=== PATIENT | female | born 1960 | race Caucasian/White ===

== ENCOUNTER → 2017-11-21 | Outpatient (CLI) | payer BC ==
[2017-11-21 10:13] LABS: ALT 28 U/L (9-52); AST 29 U/L (14-36); Albumin 3.7 g/dL (3.5-5.0); Alkaline Phosphatase 125 U/L (38-126); Anion Gap 10 mmol/L; Blood Urea Nitrogen 16 mg/dL (7-17); Calcium 9.4 mg/dL (8.4-10.2); Carbon Dioxide 26 mmol/L (22-30); Chloride 107 mmol/L (98-107); Cholesterol 112 mg/dL (<200); Glucose 167 mg/dL (74-99); HDL Cholesterol 31 mg/dL (40-60); LDL Cholesterol,Calculated 57 mg/dL (0-99); Potassium 4.4 mmol/L (3.5-5.1); Sodium 143 mmol/L (137-145); Total Protein 7.3 g/dL (6.3-8.2); Triglycerides 121 mg/dL (<150)
[2017-11-21 10:25] LABS: T4, Free (Free Thyroxine) 1.63 ng/dL (0.78-2.19)
[2017-11-21 19:03] LABS: Hemoglobin A1C 9.2 % (4.0-6.0)
== END | disposition home or self-care (01) ==
LOC: LABWHC1 09:12
PROVIDERS: ATTEND Family Medicine
DX: E11.9 Type 2 diabetes mellitus without complications (principal); E03.9 Hypothyroidism, unspecified; E78.00 Pure hypercholesterolemia, unspecified
CPT/HCPCS: 36415; 80053; 80061; 82043; 82570; 83036; 83721; 84439; 84443

== ENCOUNTER → 2018-04-03 | Outpatient (CLI) | payer MEDICAID ==
[2018-04-03 09:03] LABS: Basophils % (A) 1 %; Eosinophils # (A) 0.1 k/uL (0-0.7); Eosinophils % (A) 2 %; HCT 45.5 % (34.0-46.0); Lymphocytes # (A) 1.6 k/uL (1.0-4.8); Lymphocytes % (A) 28 %; MCH 29.2 pg (25.0-35.0); MCHC 32.9 g/dL (31.0-37.0); MCV 88.7 fL (80.0-100.0); Mean Platelet Volume 9.6; Monocytes # (A) 0.4 k/uL (0-1.0); Monocytes % (A) 7 %; Neutrophils # (A) 3.4 k/uL (1.3-7.7); Neutrophils % (A) 60 %; Platelet Count 105 k/uL (150-450); RBC 5.13 m/uL (3.80-5.40); RDW 12.8 % (11.5-15.5); WBC 5.6 k/uL (3.8-10.6)
[2018-04-03 09:09] LABS: Appearance,Urine Clear (Clear); Bacteria,Urine Rare /hpf; Bilirubin,Urine Negative (Negative); Blood,Urine Negative (Negative); Color,Urine Yellow; Glucose,Urine (UA) 4+ (Negative); Ketones,Urine Negative (Negative); Leukocyte Esterase,Urine Moderate (Negative); Mucus,Urine Rare /hpf; Nitrite,Urine Negative (Negative); Protein,Urine Negative (Negative); RBC,Urine 3 /hpf (0-5); Specific Gravity,Urine 1.026 (1.001-1.035); Squamous Epithelial Cell,Urine 2 /hpf (0-4); Urobilinogen,Urine <2.0 mg/dL (<2.0)
[2018-04-03 09:22] LABS: ALT 30 U/L (9-52); AST 33 U/L (14-36); Alkaline Phosphatase 118 U/L (38-126); Anion Gap 9 mmol/L; Blood Urea Nitrogen 18 mg/dL (7-17); Calcium 9.3 mg/dL (8.4-10.2); Carbon Dioxide 24 mmol/L (22-30); Chloride 111 mmol/L (98-107); Cholesterol 97 mg/dL (<200); Glucose 83 mg/dL (74-99); HDL Cholesterol 32 mg/dL (40-60); LDL Cholesterol,Calculated 48 mg/dL (0-99); Magnesium 1.8 mg/dL (1.6-2.3); Potassium 4.4 mmol/L (3.5-5.1); Sodium 144 mmol/L (137-145); Total Bilirubin 0.9 mg/dL (0.2-1.3); Total Protein 7.4 g/dL (6.3-8.2); Triglycerides 86 mg/dL (<150)
[2018-04-03 09:38] LABS: T4, Free (Free Thyroxine) 1.77 ng/dL (0.78-2.19)
[2018-04-03 17:57] LABS: Vitamin D 25 Hydroxy 27.5 ng/mL (30.0-100.0)
[2018-04-03 21:22] LABS: Hepatitis A Ab, Total Non-Reactive (Non-Reactive); Hepatitis A Antibody IgM Non-Reactive (Non-Reactive); Hepatitis B Surface AB- Quant 3.5 mIU/mL
== END | disposition home or self-care (01) ==
LOC: LABWHC1 08:41
PROVIDERS: ATTEND Family Medicine
DX: Z00.00 Encounter for general adult medical examination without abnormal findings (principal); G93.9 Disorder of brain, unspecified; B37.2 Candidiasis of skin and nail; K74.60 Unspecified cirrhosis of liver; I10 Essential (primary) hypertension; E03.9 Hypothyroidism, unspecified; M85.80 Other specified disorders of bone density and structure, unspecified site; L40.9 Psoriasis, unspecified
CPT/HCPCS: 36415; 80053; 80061; 81001; 82043; 82306; 82570; 82607; 83036; 83735; 84439; 84443; 85025; 86706; 86708; 86709; 86735; 86762; 86765; 87086

== ENCOUNTER → 2018-06-05 | Outpatient (CLI) | payer MEDICAID ==
[2018-06-05 12:42] LABS: T4, Free (Free Thyroxine) 1.57 ng/dL (0.78-2.19)
[2018-06-08 08:02] LABS: Vitamin A 25 ug/dL (38-106); Vitamin E (Alpha Tocopherol) 586 ug/dL (500-1800)
== END | disposition home or self-care (01) ==
LOC: LABWHC1 10:12
PROVIDERS: ATTEND Physician Assistant
DX: E03.9 Hypothyroidism, unspecified (principal); E78.5 Hyperlipidemia, unspecified; I10 Essential (primary) hypertension; K74.3 Primary biliary cirrhosis; E66.9 Obesity, unspecified; L40.0 Psoriasis vulgaris; Z79.899 Other long term (current) drug therapy
CPT/HCPCS: 36415; 84439; 84443; 84446; 84590; 86480

== ENCOUNTER → 2019-05-21 | Outpatient (CLI) | payer MEDICAID | END | disposition home or self-care (01) | LOC: LABWHC1 09:50 | PROVIDERS: ATTEND Student in an Organized Health Care Education/Training Program | DX: E50.9 Vitamin A deficiency, unspecified (principal) | CPT/HCPCS: 36415; 84590 ==

== ENCOUNTER 2021-04-08 16:38 | Inpatient (IN) | payer MEDICAID, OTHER ==
[2021-04-08] MEDS ORDERED: SODIUM CHLORIDE 0.9% 500 ML 500 ML IV STA (18:11)
--- NOTE | 2021-04-08 18:17 | ED ---
General Adult HPI - General Chief complaint: Altered Mental Status Stated complaint: abn labs Time Seen by Provider: 04/08/21 17:45 Source: patient, RN notes reviewed, old records reviewed Mode of arrival: ambulatory Limitations: no limitations - History of Present Illness Initial comments: This is a 60-year-old female presents emergency Department with a past medical history significant for diabetes and cirrhosis. Patient states she recently had some esophageal banding done and was also told she has a couple ulcers. Patient states over the last 4 days she has noted she has been off and can't remember her log onto her computer she gets fpc across the room and can't read why she was going there and she also notes she is very unsteady on her feet. Patient denies any headache patient denies any numbness or focal weakness. Patient denies any chest pain difficult breathing shortness of breath per patient denies any fever chills or cough. Patient denies abdominal pain patient has nausea vomiting diarrhea. Patient states the difficulty walking in the altered mental status other reason she is here today. Patient denies any history of drinking - Related Data Allergies Allergy/AdvReac Type Severity Reaction Status Date / Time No Known Allergies Allergy Verified 04/08/21 17:50 Review of Systems ROS Statement: Those systems with pertinent positive or pertinent negative responses have been documented in the HPI. ROS Other: All systems not noted in ROS Statement are negative. Past Medical History Past Medical History: Diabetes Mellitus, Hypertension Additional Past Medical History / Comment(s): brain lesions, genetic cirrhosis of the liver, DM II, History of Any Multi-Drug Resistant Organisms: None Reported Additional Past Surgical History / Comment(s): liver banding, right wrist, Past Psychological History: No Psychological Hx Reported Smoking Status: Never smoker Past Alcohol Use History: None Reported Past Drug Use History: None Reported General Exam - General Exam Comments Initial Comments: GENERAL: Patient is well-developed and well-nourished. Patient is nontoxic and well- hydrated and is in mild distress. ENT: Neck is soft and supple. No significant lymphadenopathy is noted. Oropharynx is clear. Moist mucous membranes. Neck has full range of motion without eliciting any pain. EYES: The sclera were anicteric and conjunctiva were pink and moist. Extraocular movements were intact and pupils were equal round and reactive to light. Eyelids were unremarkable. PULMONARY: Unlabored respirations. Good breath sounds bilaterally. No audible rales rhonchi or wheezing was noted. CARDIOVASCULAR: There is a regular rate and rhythm without any murmurs gallops or rubs. ABDOMEN: Soft and nontender with normal bowel sounds. SKIN: Skin is clear with no lesions or rashes and otherwise unremarkable. NEUROLOGIC: Patient is alert and oriented x3. Cranial nerves II through XII are grossly intact. Motor and sensory are also intact. Normal speech, volume and content. Symmetrical smile. MUSCULOSKELETAL: Normal extremities with adequate strength and full range of motion. LYMPHATICS: No significant lymphadenopathy is noted PSYCHIATRIC: Normal psychiatric evaluation. Limitations: no limitations Course Vital Signs 04/08/21 04/08/21 17:45 19:38 Temperature 98.4 F 98.1 F Pulse Rate 76 71 Respiratory 18 16 Rate Blood Pressure 119/67 116/66 O2 Sat by Pulse 100 100 Oximetry Medical Decision Making - Medical Decision Making Patient's ammonia level was elevated at 50. I started the patient like chills. I spoke with the [facility] hospitalist agreed to admit the patient admitted the patient I continued lactulose on the floor and I consult to GI. - Lab Data Result diagrams: 04/08/21 18:19 04/08/21 18:19 Lab Results 04/08/21 04/08/21 04/08/21 Range/Units 18:19 18:19 18:19 WBC 4.4 (3.8-10.6) k/uL RBC 4.80 (3.80-5.40) m/uL Hgb 15.5 (11.4-16.0) gm/dL Hct 46.1 H (34.0-46.0) % MCV 96.1 (80.0-100.0) fL MCH 32.2 (25.0-35.0) pg MCHC 33.5 (31.0-37.0) g/dL RDW 15.5 (11.5-15.5) % Plt Count 102 L (150-450) k/uL MPV 9.9 Neutrophils % 65 % Lymphocytes % 19 % Monocytes % 10 % Eosinophils % 2 % Basophils % 1 % Neutrophils # 2.8 (1.3-7.7) k/uL Lymphocytes # 0.8 L (1.0-4.8) k/uL Monocytes # 0.4 (0-1.0) k/uL Eosinophils # 0.1 (0-0.7) k/uL Basophils # 0.0 (0-0.2) k/uL Sodium 139 (137-145) mmol/L Potassium 4.3 (3.5-5.1) mmol/L Chloride 109 H (98-107) mmol/L Carbon Dioxide 22 (22-30) mmol/L Anion Gap 8 mmol/L BUN 24 H (7-17) mg/dL Creatinine 0.89 (0.52-1.04) mg/dL Est GFR (CKD-EPI)AfAm 82 (>60 ml/min/1.73 sqM) Est GFR (CKD-EPI)NonAf 71 (>60 ml/min/1.73 sqM) Glucose 127 H (74-99) mg/dL Plasma Lactic Acid Babak (0.7-2.0) mmol/L Calcium 9.4 (8.4-10.2) mg/dL Total Bilirubin 2.4 H (0.2-1.3) mg/dL AST 90 H (14-36) U/L ALT 49 H (4-34) U/L Alkaline Phosphatase 165 H (38-126) U/L Ammonia (<30) umol/L Total Protein 7.2 (6.3-8.2) g/dL Albumin 3.5 (3.5-5.0) g/dL Amylase 58 (30-110) U/L Lipase 297 (23-300) U/L Urine Color Yellow Urine Appearance Cloudy H (Clear) Urine pH 5.5 (5.0-8.0) Ur Specific [place] 1.028 (1.001-1.035) Urine Protein Trace H (Negative) Urine Glucose (UA) 2+ H (Negative) Urine Ketones Negative (Negative) Urine Blood Large H (Negative) Urine Nitrite Negative (Negative) Urine Bilirubin Negative (Negative) Urine Urobilinogen 2.0 (<2.0) mg/dL Ur Leukocyte Esterase Moderate H (Negative) Urine RBC 39 H (0-5) /hpf Urine WBC 13 H (0-5) /hpf Ur Squamous Epith Cells 6 H (0-4) /hpf Urine Mucus Occasional H (None) /hpf 04/08/21 Range/Units 18:19 WBC (3.8-10.6) k/uL RBC (3.80-5.40) m/uL Hgb (11.4-16.0) gm/dL Hct (34.0-46.0) % MCV (80.0-100.0) fL MCH (25.0-35.0) pg MCHC (31.0-37.0) g/dL RDW (11.5-15.5) % Plt Count (150-450) k/uL MPV Neutrophils % % Lymphocytes % % Monocytes % % Eosinophils % % Basophils % % Neutrophils # (1.3-7.7) k/uL Lymphocytes # (1.0-4.8) k/uL Monocytes # (0-1.0) k/uL Eosinophils # (0-0.7) k/uL Basophils # (0-0.2) k/uL Sodium (137-145) mmol/L Potassium (3.5-5.1) mmol/L Chloride (98-107) mmol/L Carbon Dioxide (22-30) mmol/L Anion Gap mmol/L BUN (7-17) mg/dL Creatinine (0.52-1.04) mg/dL Est GFR (CKD-EPI)AfAm (>60 ml/min/1.73 sqM) Est GFR (CKD-EPI)NonAf (>60 ml/min/1.73 sqM) Glucose (74-99) mg/dL Plasma Lactic Acid Babak 1.0 (0.7-2.0) mmol/L Calcium (8.4-10.2) mg/dL Total Bilirubin (0.2-1.3) mg/dL AST (14-36) U/L ALT (4-34) U/L Alkaline Phosphatase (38-126) U/L Ammonia 50 H (<30) umol/L Total Protein (6.3-8.2) g/dL Albumin (3.5-5.0) g/dL Amylase (30-110) U/L Lipase (23-300) U/L Urine Color Urine Appearance (Clear) Urine pH (5.0-8.0) Ur Specific [place] (1.001-1.035) Urine Protein (Negative) Urine Glucose (UA) (Negative) Urine Ketones (Negative) Urine Blood (Negative) Urine Nitrite (Negative) Urine Bilirubin (Negative) Urine Urobilinogen (<2.0) mg/dL Ur Leukocyte Esterase (Negative) Urine RBC (0-5) /hpf Urine WBC (0-5) /hpf Ur Squamous Epith Cells (0-4) /hpf Urine Mucus (None) /hpf Disposition Clinical Impression: Cirrhosis, Hepatic encephalopathy Disposition: ADMITTED IP TO THIS HOSP Referrals: Minoo Gonzales DO [Primary Care Provider] - 1-2 days Time of Disposition: 20:32
[2021-04-08 18:50] LABS: Albumin 3.5 g/dL (3.5-5.0); Calcium 9.4 mg/dL (8.4-10.2); Potassium 4.3 mmol/L (3.5-5.1); Total Bilirubin 2.4 mg/dL (0.2-1.3); Total Protein 7.2 g/dL (6.3-8.2)
[2021-04-08 18:53] LABS: Basophils % (A) 1 %; Eosinophils # (A) 0.1 k/uL (0-0.7); Eosinophils % (A) 2 %; HCT 46.1 % (34.0-46.0); HGB 15.5 gm/dL (11.4-16.0); Lymphocytes # (A) 0.8 k/uL (1.0-4.8); Lymphocytes % (A) 19 %; MCH 32.2 pg (25.0-35.0); MCHC 33.5 g/dL (31.0-37.0); MCV 96.1 fL (80.0-100.0); Mean Platelet Volume 9.9; Monocytes # (A) 0.4 k/uL (0-1.0); Monocytes % (A) 10 %; Neutrophils # (A) 2.8 k/uL (1.3-7.7); Neutrophils % (A) 65 %; Platelet Count 102 k/uL (150-450); RDW 15.5 % (11.5-15.5); WBC 4.4 k/uL (3.8-10.6)
[2021-04-08 18:58] LABS: Appearance,Urine Cloudy (Clear); Bilirubin,Urine Negative (Negative); Blood,Urine Large (Negative); Color,Urine Yellow; Glucose,Urine (UA) 2+ (Negative); Ketones,Urine Negative (Negative); Leukocyte Esterase,Urine Moderate (Negative); Mucus,Urine Occasional /hpf; Nitrite,Urine Negative (Negative); PH, Urine 5.5 (5.0-8.0); Protein,Urine Trace (Negative); RBC,Urine 39 /hpf (0-5); Specific Gravity,Urine 1.028 (1.001-1.035); Squamous Epithelial Cell,Urine 6 /hpf (0-4); WBC,Urine 13 /hpf (0-5)
--- NOTE | 2021-04-08 19:53 | CT ---
EXAMINATION TYPE: CT brain wo con DATE OF EXAM: 04/08/2021 COMPARISON: None HISTORY: ams, confusion CT DLP: 1040.4 mGycm Automated exposure control for dose reduction was used. FINDINGS: No acute intracranial hemorrhage, large vessel territory infarct, mass, mass effect or midline shift. The subarachnoid basal cisterns of the cerebral sulci are maintained. Sepsis. The carranza-white distinc tion is maintained. Two tiny parafalcine lipomas. Soft tissues of the orbits are within normal limits. Mucosal thickening of the left maxillary sinus. Remaining paranasal sinuses and the air cells are wel l-developed and pneumatized. The calvarium and skull base have been unremarkable appearance. IMPRESSION: No acute intracranial process.
[2021-04-08] MEDS ORDERED: LACTULOSE 20 GM/30 ML CUP PO ONE (20:31)
[2021-04-08] MEDS ORDERED: SODIUM CHLORIDE 0.9% 1,000 ML IV ONE (20:32)
[2021-04-08] MEDS: LACTULOSE 20 GM/30 ML CUP PO SCH (22:57)
[2021-04-09] MEDS ORDERED: LACTULOSE 20 GM/30 ML CUP PO ONE (09:00)
[2021-04-09] MEDS: LACTULOSE 20 GM/30 ML CUP PO SCH ×3 (10:57→21:40)
[2021-04-09] MEDS ORDERED: ONDANSETRON 4 MG/2 ML VIAL IVP PRN (12:15)
[2021-04-09] MEDS ORDERED: NALOXONE 0.4 MG/ML 1 ML VIAL IV PRN (12:15)
[2021-04-09 14:04] LABS: Glucose,Whole Blood 206 mg/dL (75-99)
[2021-04-09] MEDS: INSULIN ASPART (NovoLOG) 100 UNIT/ML VIAL SQ SCH ×2 (14:23→17:28)
[2021-04-09] MEDS: SUCRALFATE 1 GM TAB PO SCH ×3 (14:24→21:41)
[2021-04-09] MEDS: CHOLECALCIFEROL 25 MCG (1000 IU) TABLET PO SCH (14:24)
[2021-04-09] MEDS: LEVOTHYROXINE 88 MCG TAB PO SCH (14:24)
[2021-04-09] MEDS: MULTIVITAMINS, THERA 1 EACH TAB PO SCH (14:24)
[2021-04-09] MEDS: SPIRONOLACTONE 25 MG TAB PO SCH (14:24)
[2021-04-09] MEDS: LOSARTAN 50 MG TAB PO SCH (14:25)
--- NOTE | 2021-04-09 14:33 | P.HPIM ---
History of Present Illness H&P Date: 04/09/21 Chief Complaint: Confusion 60 year old woman with history of cirrhosis s/p recent esophageal banding, DM, hypothyroidism, HTN, psoriasis presented with confusion. She says that she was in her usual state of health, but recently started noticing confusion in her day to day tasks such as remembering her commonly used password. She has also noted increased daytime somnolence, sleeping for at times 12 hours during the day. Patient says her symptoms started worsening since her prior EGD in February, when she was noted to have gastric ulcers and was started on protonix. Patient denies fevers, chills, nausea, vomiting, chest pain, palps, dyspnea, syncope, dysuria, hesitancy, nocturia, consipation, abd, diarrhea, numbness/weakness of extremities. Her outpatient labs were reviewed and when compared to admission labs, her bilirubin is increased from 1.0 to 2.4. Otherwise, patient is afebrile, HDS. Admission lab work otherwise remarkable for elevated ammonia. UA appears to be contaminated with squamous cells, but has mod LE, 13 WBCs, Large blood, [address] did not demonstrate acute process. Review of Systems All Systems reviewed and pertinent positives and negatives noted in HPI, all other symptoms are negative Past Medical History Past Medical History: Diabetes Mellitus, Hypertension Additional Past Medical History / Comment(s): brain lesions, genetic cirrhosis of the liver, DM II, History of Any Multi-Drug Resistant Organisms: None Reported Additional Past Surgical History / Comment(s): liver banding, right wrist, Past Psychological History: No Psychological Hx Reported Smoking Status: Never smoker Past Alcohol Use History: None Reported Past Drug Use History: None Reported Medications and Allergies Home Medications Medication Instructions Recorded Confirmed Type Atorvastatin [Lipitor] 10 mg PO HS 04/08/21 04/08/21 History Cholecalciferol [Vitamin D3 (25 50 mcg PO DAILY 04/08/21 04/08/21 History Mcg = 1000 Iu)] Dapagliflozin Propanediol [Farxiga] 10 mg PO DAILY 04/08/21 04/08/21 History Folic Acid 1 mg PO DAILY 04/08/21 04/08/21 History Furosemide [Lasix] 20 mg PO DAILY 04/08/21 04/08/21 History Insulin Glargine [Lantus] 22 unit SQ BID 04/08/21 04/09/21 History Levothyroxine Sodium [Synthroid] 175 mcg PO MOTUWETHFRSA 04/08/21 04/08/21 History Losartan Potassium 100 mg PO DAILY 04/08/21 04/08/21 History Multivitamin/Iron/Folic Acid 1 tab PO DAILY 04/08/21 04/08/21 History [Centrum Women Tablet] Ondansetron [Zofran ODT] 4 mg PO Q6H PRN 04/08/21 04/08/21 History Secukinumab [Cosentyx Pen] 150 mg SQ Q28D 04/08/21 04/08/21 History Spironolactone [Aldactone] 50 mg PO DAILY 04/08/21 04/08/21 History Sucralfate [Carafate] 1 gm PO QID 04/08/21 04/08/21 History glipiZIDE [Glucotrol] 5 mg PO BID-W/MEALS 04/08/21 04/08/21 History metFORMIN HCL [Glucophage] 500 mg PO DAILY 04/08/21 04/08/21 History ursodioL [Ursodiol] 500 mg PO TID 04/08/21 04/08/21 History Allergies Allergy/AdvReac Type Severity Reaction Status Date / Time No Known Allergies Allergy Verified 04/08/21 21:38 Physical Exam Osteopathic Statement: *. No significant issues noted on an osteopathic structural exam other than those noted in the History and Physical/Consult. Vitals: Vital Signs Temp Pulse Resp BP Pulse Ox 04/09/21 13:36 97.8 F 65 17 103/52 99 04/09/21 06:35 97.9 F 68 16 108/71 97 04/09/21 01:00 75 16 121/73 98 04/08/21 19:38 98.1 F 71 16 116/66 100 04/08/21 17:45 98.4 F 76 18 119/67 100 Intake and Output 04/08/21 04/09/21 04/09/21 22:59 06:59 14:59 Other: Weight 117.027 kg Gen: awake, alert HEENT: normocephalic, atraumatic, good hearing acuity, moist mucous membranes Resp: good air exchange, breathing comfortably with no accessory muscle use, CTAB, no wheezes or crackles CVS: good distal perfusion x 4, RRR, no murmurs GI: soft, NTTP, ND, appropriate bowel sounds : mild SPT, no CVAT, varner catheter not present MSK: trace pitting edema, no clubbing Neuro: non-focal, moving all extremities Psych: cooperative, euthymic mood Results CBC & Chem 7: 04/08/21 18:19 04/08/21 18:19 Labs: Abnormal Lab Results - Last 24 Hours (Table) 04/08/21 04/08/21 04/08/21 Range/Units 18:19 18:19 18:19 Hct 46.1 H (34.0-46.0) % Plt Count 102 L (150-450) k/uL Lymphocytes # 0.8 L (1.0-4.8) k/uL Chloride 109 H (98-107) mmol/L BUN 24 H (7-17) mg/dL Glucose 127 H (74-99) mg/dL POC Glucose (mg/dL) (75-99) mg/dL Total Bilirubin 2.4 H (0.2-1.3) mg/dL AST 90 H (14-36) U/L ALT 49 H (4-34) U/L Alkaline Phosphatase 165 H (38-126) U/L Ammonia (<30) umol/L Urine Appearance Cloudy H (Clear) Urine Protein Trace H (Negative) Urine Glucose (UA) 2+ H (Negative) Urine Blood Large H (Negative) Ur Leukocyte Esterase Moderate H (Negative) Urine RBC 39 H (0-5) /hpf Urine WBC 13 H (0-5) /hpf Ur Squamous Epith Cells 6 H (0-4) /hpf Urine Mucus Occasional H (None) /hpf 04/08/21 04/09/21 Range/Units 18:19 14:02 Hct (34.0-46.0) % Plt Count (150-450) k/uL Lymphocytes # (1.0-4.8) k/uL Chloride (98-107) mmol/L BUN (7-17) mg/dL Glucose (74-99) mg/dL POC Glucose (mg/dL) 206 H (75-99) mg/dL Total Bilirubin (0.2-1.3) mg/dL AST (14-36) U/L ALT (4-34) U/L Alkaline Phosphatase (38-126) U/L Ammonia 50 H (<30) umol/L Urine Appearance (Clear) Urine Protein (Negative) Urine Glucose (UA) (Negative) Urine Blood (Negative) Ur Leukocyte Esterase (Negative) Urine RBC (0-5) /hpf Urine WBC (0-5) /hpf Ur Squamous Epith Cells (0-4) /hpf Urine Mucus (None) /hpf Microbiology - Last 24 Hours (Table) 04/08/21 18:19 Urine Culture - Preliminary Urine,Voided Assessment and Plan Assessment: Encephalopathy, hepatic versus secondary to UTI, favor former Elevated ammonia Suspected urinary tract infection Decompensated Hepatic cirrhosis with moderate ascites Elevated bilirubin -Admit inpatient -GI consult -Continue lactulose 3 times a day -Ceftriaxone 1 g every 24 hours -Follow up urine culture -Consideration of IR guided paracentesis if mentation does not improve -Continue home Lasix and spironolactone Diabetes type 2 Hypothyroidism Hypertension Peptic ulcer disease -Home medications reviewed and reconciled -Hold home glipizide, Dapagliflozin, metformin -Continue Levemir 22 subcu twice a day + aspart sliding scale insulin -Continue home levothyroxine -Continue home losartan -Continue home sucralfate, PPI Patient is on heparin 3 times a day for DVT prophylaxis Patient is a full code
[2021-04-09] MEDS: HEPARIN SODIUM,PORCINE/PF 5,000 UNIT/0.5 ML SYRINGE SQ SCH ×2 (15:49→23:53)
[2021-04-09] MEDS ORDERED: ursodioL 300 MG CAP PO SCH (16:00)
[2021-04-09] MEDS: URSODIOL 500MG TABLET PO SCH ×2 (16:06→23:10)
--- NOTE | 2021-04-09 16:33 | P.CONS ---
History of Present Illness - Reason for Consult Consult date: 04/09/21 Hepatic encephalopathy Requesting physician: Severino Hernández - Chief Complaint Confusion - History of Present Illness This is a 60-year-old pleasant white female with a known history of cirrhosis of the liver who follows with Dr. Anderson and Dr. Cruz from [facility]. The patient states she was diagnosed with cirrhosis of the liver many years ago by Dr. Ji, it was found to be genetic. She has been following closely with Dr. Anderson who recommended closer evaluation with a liver specialist that [facility]. The patient states over the last couple days she has noted that she was not thinking is clear, she would forget what she was doing, and feeling more fatigued. She denies any previous history of hepatic encephalopathy. During her workup in the emergency department she was noted to have an ammonia level of 50, she was started on lactulose 30 g. WBC 4, hemoglobin 15, hematocrit 46, platelet count 102,000, total bilirubin 2.4, alkaline phosphatase 165, AST 90, ALT 49. She had a CT of the brain that showed no acute intracranial process. Patient also states she recently underwent an EGD with Dr. Anderson on 03/29/2021 with findings of esophageal varices which were banded. The patient denied any history of GI bleed. She denies any history of alcohol abuse or current alcohol use. Patient also states she has a history of constipa tion however she does state that she went Thursday or Thursday. He is denying any abdominal pain, nausea, or vomiting. He states that she is thinking more clearly now that she has had her lactulose, and reports that she has had one bowel movement since receiving 2 doses of lactulose today. Review of Systems REVIEW OF SYSTEMS: CARDIOPULMONARY: No chest pain or shortness of breath. Gastrointestinal: No abdominal pain.. No nausea or vomiting. No hematemesis, coffee-ground emesis. No rectal bleeding, or melena. GENITOURINARY: No dysuria or hematuria. MUSCULOSKELETAL: Reports normal range of motion., Joint pain. SKIN: No rashes. No jaundice. ENDOCRINE: No chills, fevers. No excessive weight gain or loss. No polydipsia or polyuria. PSYCHIATRIC: Unremarkable. NEUROLOGY: Some confusion, decreased mental clarity. Fatigue.. Denies dizzines s, headache. ENT: Vision unremarkable. CONSTITUTIONAL: No recent weight loss. No fever, chills, night sweats. Past Medical History Past Medical History: Diabetes Mellitus, Hypertension Additional Past Medical History / Comment(s): brain lesions, genetic cirrhosis of the liver, DM II, History of Any Multi-Drug Resistant Organisms: None Reported Additional Past Surgical History / Comment(s): liver banding, right wrist, Past Anesthesia/Blood Transfusion Reactions: No Reported Reaction Past Psychological History: No Psychological Hx Reported Smoking Status: Never smoker Past Alcohol Use History: None Reported Past Drug Use History: None Reported Medications and Allergies Home Medications Medication Instructions Recorded Confirmed Type Atorvastatin [Lipitor] 10 mg PO HS 04/08/21 04/08/21 History Cholecalciferol [Vitamin D3 (25 50 mcg PO DAILY 04/08/21 04/08/21 History Mcg = 1000 Iu)] Dapagliflozin Propanediol [Farxiga] 10 mg PO DAILY 04/08/21 04/08/21 History Folic Acid 1 mg PO DAILY 04/08/21 04/08/21 History Furosemide [Lasix] 20 mg PO DAILY 04/08/21 04/08/21 History Insulin Glargine [Lantus] 22 unit SQ BID 04/08/21 04/09/21 History Levothyroxine Sodium [Synthroid] 175 mcg PO MOTUWETHFRSA 04/08/21 04/08/21 History Losartan Potassium 100 mg PO DAILY 04/08/21 04/08/21 History Multivitamin/Iron/Folic Acid 1 tab PO DAILY 04/08/21 04/08/21 History [Centrum Women Tablet] Ondansetron [Zofran ODT] 4 mg PO Q6H PRN 04/08/21 04/08/21 History Secukinumab [Cosentyx Pen] 150 mg SQ Q28D 04/08/21 04/08/21 History Spironolactone [Aldactone] 50 mg PO DAILY 04/08/21 04/08/21 History Sucralfate [Carafate] 1 gm PO QID 04/08/21 04/08/21 History glipiZIDE [Glucotrol] 5 mg PO BID-W/MEALS 04/08/21 04/08/21 History metFORMIN HCL [Glucophage] 500 mg PO DAILY 04/08/21 04/08/21 History ursodioL [Ursodiol] 500 mg PO TID 04/08/21 04/08/21 History Allergies Allergy/AdvReac Type Severity Reaction Status Date / Time No Known Allergies Allergy Verified 04/08/21 21:38 Physical Exam Vitals: Vital Signs Temp Pulse Pulse Resp BP BP Pulse Ox 04/09/21 15:36 98 F 76 18 108/68 97 04/09/21 14:27 80 16 105/62 100 04/09/21 13:36 97.8 F 65 17 103/52 99 04/09/21 06:35 97.9 F 68 16 108/71 97 04/09/21 01:00 75 16 121/73 98 04/08/21 19:38 98.1 F 71 16 116/66 100 04/08/21 17:45 98.4 F 76 18 119/67 100 Intake and Output 04/09/21 04/09/21 04/09/21 06:59 14:59 22:59 Other: Voiding Method Toilet Weight 117.027 kg General appearance: The patient is alert, oriented, appears in no acute distress. Obese. HET: Head is normocephalic and atraumatic. Conjunctiva pink. Sclera anicteric. Neck: Supple without lymphadenopathy. Trachea midline. Heart: S1 S2. Regular rate and rhythm. Lungs: Clear to auscultation. Abdomen: Soft, nontender, nondistended with bowel sounds. No guarding or rigidity. Skin: No rashes. No jaundice. Extremities: Normal skin color and turgor. No pedal edema. Neurological: No focal deficits. Alert and oriented 3.. Results CBC & Chem 7: 04/08/21 18:19 04/08/21 18:19 Labs: Abnormal Lab Results - Last 24 Hours (Table) 04/08/21 04/08/21 04/08/21 Range/Units 18:19 18:19 18:19 Hct 46.1 H (34.0-46.0) % Plt Count 102 L (150-450) k/uL Lymphocytes # 0.8 L (1.0-4.8) k/uL Chloride 109 H (98-107) mmol/L BUN 24 H (7-17) mg/dL Glucose 127 H (74-99) mg/dL POC Glucose (mg/dL) (75-99) mg/dL Total Bilirubin 2.4 H (0.2-1.3) mg/dL AST 90 H (14-36) U/L ALT 49 H (4-34) U/L Alkaline Phosphatase 165 H (38-126) U/L Ammonia (<30) umol/L Urine Appearance Cloudy H (Clear) Urine Protein Trace H (Negative) Urine Glucose (UA) 2+ H (Negative) Urine Blood Large H (Negative) Ur Leukocyte Esterase Moderate H (Negative) Urine RBC 39 H (0-5) /hpf Urine WBC 13 H (0-5) /hpf Ur Squamous Epith Cells 6 H (0-4) /hpf Urine Mucus Occasional H (None) /hpf 04/08/21 04/09/21 Range/Units 18:19 14:02 Hct (34.0-46.0) % Plt Count (150-450) k/uL Lymphocytes # (1.0-4.8) k/uL Chloride (98-107) mmol/L BUN (7-17) mg/dL Glucose (74-99) mg/dL POC Glucose (mg/dL) 206 H (75-99) mg/dL Total Bilirubin (0.2-1.3) mg/dL AST (14-36) U/L ALT (4-34) U/L Alkaline Phosphatase (38-126) U/L Ammonia 50 H (<30) umol/L Urine Appearance (Clear) Urine Protein (Negative) Urine Glucose (UA) (Negative) Urine Blood (Negative) Ur Leukocyte Esterase (Negative) Urine RBC (0-5) /hpf Urine WBC (0-5) /hpf Ur Squamous Epith Cells (0-4) /hpf Urine Mucus (None) /hpf Microbiology - Last 24 Hours (Table) 04/08/21 18:19 Urine Culture - Preliminary Urine,Voided CT Scan - head: report reviewed (No acute intracranial process.) Assessment and Plan (1) Hepatic encephalopathy Narrative/Plan: 60-year-old female who presented to the emergency department with complaints of decreased mental clarity, some confusion, and forgetfulness as well as fatigue. 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 She has no previous history of alcohol abuse or current alcohol use. She follows with Dr. Anderson from [facility] who recently did an EGD and found esophageal varices which were banded. He has referred the patient and she has been following with Dr. Cruz from [facility] liver specialist. She has no previous history of hepatic encephalopathy. On admission lab work showed an ammonia level of 50, total bilirubin 2.4, alkaline phosphatase 165, AST 90, ALT 49. She was started on lactulose 30 g and has had 2 doses since admission. Patient stating that she is now feeling better, more alert and clear minded. Patient is showing signs of hepatic encephalopathy related to decompensated cirrhosis of the liver. Current Visit: Yes Status: Acute Code(s): K72.90 - HEPATIC FAILURE, UNSPECIFIED WITHOUT COMA SNOMED Code(s): 51261970 (2) Decompensation of cirrhosis of liver Current Visit: Yes Status: Acute Code(s): K72.90 - HEPATIC FAILURE, UNSPECIFIED WITHOUT COMA; K74.60 - UNSPECIFIED CIRRHOSIS OF LIVER SNOMED Code(s): 469334457 Plan: 1. Continue symptomatic and supportive care 2. Patient may have regular diet 3. Continue lactulose 30 g 3 times a day, titrate to have 3-4 bowel movements daily 4. Repeat ammonia, CMP daily 5. Patient will need to follow-up with her liver specialist at [facility] Thank you for this consultation, we will continue to follow Dr. Holden I agree with the dictator's note, documented as a scribe by Bina Forman.
[2021-04-09 17:10] LABS: Glucose,Whole Blood 136 mg/dL (75-99)
[2021-04-09] MEDS: PANTOPRAZOLE 40 MG TABLET PO SCH (17:27)
[2021-04-09 20:37] LABS: Glucose,Whole Blood 147 mg/dL (75-99)
[2021-04-09] MEDS: INSULIN DETEMIR (LEVEMIR) 100 UNIT/ML SYR SQ SCH (21:41)
[2021-04-10] MEDS: LEVOTHYROXINE 88 MCG TAB PO SCH (05:58)
[2021-04-10 07:14] LABS: Glucose,Whole Blood 112 mg/dL (75-99)
[2021-04-10] MEDS: INSULIN ASPART (NovoLOG) 100 UNIT/ML VIAL SQ SCH ×2 (07:23→12:30)
[2021-04-10] MEDS: LOSARTAN 50 MG TAB PO SCH (07:47)
[2021-04-10] MEDS: LACTULOSE 20 GM/30 ML CUP PO SCH (07:47)
[2021-04-10] MEDS: SPIRONOLACTONE 25 MG TAB PO SCH (07:47)
[2021-04-10] MEDS: CHOLECALCIFEROL 25 MCG (1000 IU) TABLET PO SCH (07:47)
[2021-04-10] MEDS: HEPARIN SODIUM,PORCINE/PF 5,000 UNIT/0.5 ML SYRINGE SQ SCH (07:47)
[2021-04-10] MEDS: MULTIVITAMINS, THERA 1 EACH TAB PO SCH (07:48)
[2021-04-10] MEDS: PANTOPRAZOLE 40 MG TABLET PO SCH (07:48)
[2021-04-10] MEDS: SUCRALFATE 1 GM TAB PO SCH ×2 (07:48→12:46)
[2021-04-10] MEDS: INSULIN DETEMIR (LEVEMIR) 100 UNIT/ML SYR SQ SCH (07:48)
[2021-04-10] MEDS: URSODIOL 500MG TABLET PO SCH (07:50)
[2021-04-10] MEDS ORDERED: FOLIC ACID 1 MG TAB PO SCH (09:00)
[2021-04-10] MEDS ORDERED: FUROSEMIDE 20 MG TAB PO SCH (09:00)
[2021-04-10 12:02] LABS: Glucose,Whole Blood 138 mg/dL (75-99)
[2021-04-10 12:36] VITALS: BP 85/54; PULSE 70; RESP 18; TEMP 98.2
--- NOTE | 2021-04-10 13:18 | P.DS ---
Providers Date of admission: 04/08/21 20:32 Expected date of discharge: 04/10/21 Attending physician: Karol Scales Consults: 04/08/21 20:32 Consult Physician Urgent Consulting Provider: Dieudonne Holden Consult Reason/Comments: Hepatic encephalopathy Do you want consulting provider notified?: Yes Primary care physician: Minoo Gonzales DO Hospital Course: Discharge Diagnosis: Hepatic encephalopy with advanced cirrhosis UTI ruled out Thrombocytopenia Elevated bilirubin and liver enzymes suspect related to known cirrhosis. Diabetes type 2 Hypothyroidism Hypertension Peptic ulcer disease Hospital Course: Patient is a 60-year-old female with a history of cirrhosis who follows with Dr. Justin sargent out of [facility], diabetes, and hypertension who presented to the hospital with complaints of fatigue and increased confusion. In the ER she underwent an extensive evaluation. She was found to have hepatic encephalopathy with an ammonia level of 50. She was admitted for further monitoring. She was started on lactulose by the time she was evaluated by gastroenterology was already much improved. By the next morning she felt almost back to baseline and her ammonia had gone down to 40. She was determined stable for discharge. Follow-up: Her [facility] asbestos worker helper, primary care physician, new prescription for lactulose 30 g 3 times daily. Patient seen and examined at bedside. Feeling almost back to normal. No nausea, no vomiting, already ahd a loose bowel movement today. Has sent a portal message to [facility] for follow-up appointment. Vital signs reviewed and stable. General: non toxic, no distress, appears at stated age Derm: warm, dry Head: atraumatic, normocephalic, symmetric Eyes: EOMI, no lid lag, anicteric sclera Mouth: no lip lesion, mucus membranes moist Cardiovascular: S1S2 reg, no murmur, positive posterior tibial pulse bilateral, Lungs: Decreased bs bilateral, no rhonchi, no rales , no accessory muscle use Abdominal: soft, nontender to palpation, no guarding, no appreciable organomegaly Ext: no gross muscle atrophy, trace edema, no contractures Neuro: CN II-XI grossly intact, no focal neuro deficits Psych: Alert, oriented, appropriate affect A total of minutes of time were spent preparing this complex discharge summary . Plan - Discharge Summary Discharge Rx Participant: No New Discharge Prescriptions: New Lactulose [Cephulac] 30 gm PO TID 30 Days #1 bottle Continue Folic Acid 1 mg PO DAILY ursodioL [Ursodiol] 500 mg PO TID metFORMIN HCL [Glucophage] 500 mg PO DAILY Dapagliflozin Propanediol [Farxiga] 10 mg PO DAILY Insulin Glargine [Lantus] 22 unit SQ BID Ondansetron [Zofran ODT] 4 mg PO Q6H PRN PRN Reason: Nausea And Vomiting Sucralfate [Carafate] 1 gm PO QID Secukinumab [Cosentyx Pen] 150 mg SQ Q28D Multivitamin/Iron/Folic Acid [Centrum Women Tablet] 1 tab PO DAILY Cholecalciferol [Vitamin D3 (25 Mcg = 1000 Iu)] 50 mcg PO DAILY Spironolactone [Aldactone] 50 mg PO DAILY Losartan Potassium 100 mg PO DAILY glipiZIDE [Glucotrol] 5 mg PO BID-W/MEALS Levothyroxine Sodium [Synthroid] 175 mcg PO MOTUWETHFRSA Furosemide [Lasix] 20 mg PO DAILY Atorvastatin [Lipitor] 10 mg PO HS Discharge Medication List Atorvastatin [Lipitor] 10 mg PO HS 04/08/21 [History] Cholecalciferol [Vitamin D3 (25 Mcg = 1000 Iu)] 50 mcg PO DAILY 04/08/21 [History] Dapagliflozin Propanediol [Farxiga] 10 mg PO DAILY 04/08/21 [History] Folic Acid 1 mg PO DAILY 04/08/21 [History] Furosemide [Lasix] 20 mg PO DAILY 04/08/21 [History] Insulin Glargine [Lantus] 22 unit SQ BID 04/08/21 [History] Levothyroxine Sodium [Synthroid] 175 mcg PO MOTUWETHFRSA 04/08/21 [History] Losartan Potassium 100 mg PO DAILY 04/08/21 [History] Multivitamin/Iron/Folic Acid [Centrum Women Tablet] 1 tab PO DAILY 04/08/21 [History] Ondansetron [Zofran ODT] 4 mg PO Q6H PRN 04/08/21 [History] Secukinumab [Cosentyx Pen] 150 mg SQ Q28D 04/08/21 [History] Spironolactone [Aldactone] 50 mg PO DAILY 04/08/21 [History] Sucralfate [Carafate] 1 gm PO QID 04/08/21 [History] glipiZIDE [Glucotrol] 5 mg PO BID-W/MEALS 04/08/21 [History] metFORMIN HCL [Glucophage] 500 mg PO DAILY 04/08/21 [History] ursodioL [Ursodiol] 500 mg PO TID 04/08/21 [History] Lactulose [Cephulac] 30 gm PO TID 30 Days #1 bottle 04/10/21 [Rx] Follow up Appointment(s)/Referral(s): Minoo Gonzales DO [Primary Care Provider] - 1-2 days Activity/Diet/Wound Care/Special Instructions: Activity: as tolerated Diet: low sodium Special Instructions: Follow-up with your [facility] asbestos worker helper. Goal of 3 loose bowel movements daily with lactulose Discharge Disposition: HOME SELF-CARE
[2021-04-10 13:36] VITALS: BMI 42.9
--- NOTE | 2021-04-10 14:14 | P.PN ---
Subjective Progress Note Date: 04/10/21 Principal diagnosis: hepatic encephalopathy, cirrhosis of the liver The patient was seen and examined sitting up in bed. States she is having more mental clarity. She denies any abdominal pain, nausea, or vomiting. States she has had several bowel movements since her lactulose. Ammonia level has decreased to 40. Patient states she was working on setting up an appointment with her liver specialist at [facility]. Objective - Vital Signs Vital signs: Vital Signs Temp 98.2 F 04/10/21 12:35 Pulse 70 04/10/21 12:35 Resp 18 04/10/21 12:35 BP 85/54 04/10/21 12:35 Pulse Ox 100 04/10/21 12:35 Intake & Output 04/09/21 04/10/21 04/10/21 18:59 06:59 18:59 Intake Total 1630 100 120 Balance 1630 100 120 Weight 117.027 kg 117.027 kg Intake: Intake, IV Titration 50 Amount cefTRIAXone 1 gm In 50 Sodium Chloride 0.9% 50 ml @ 100 mls/hr IVPB Q24HR [facility] Rx#:[id number] Oral 1580 100 120 Other: Voiding Method Toilet Toilet Toilet # Voids 2 1 # Bowel Movements 1 - Exam General appearance: The patient is alert, oriented, appears in no acute dist ress. HET: Head is normocephalic and atraumatic. Conjunctiva pink. Sclera anicteric. Neck: Supple without lymphadenopathy. Abdomen: Soft, nontender, nondistended with bowel sounds. No guarding or rigidity. Extremities: Normal skin color and turgor. No pedal edema Skin: No rashes, no jaundice Neurological: No focal deficits. Alert and oriented 3. - Labs CBC & Chem 7: 04/08/21 18:19 04/08/21 18:19 Labs: Abnormal Lab Results - Last 24 Hours (Table) 04/09/21 04/09/21 04/10/21 Range/Units 17:07 20:35 07:08 POC Glucose (mg/dL) 136 H 147 H 112 H (75-99) mg/dL Ammonia (<30) umol/L 04/10/21 04/10/21 Range/Units 11:38 11:51 POC Glucose (mg/dL) 138 H (75-99) mg/dL Ammonia 40 H (<30) umol/L Microbiology - Last 24 Hours (Table) 04/08/21 18:19 Urine Culture - Final Urine,Voided Assessment and Plan (1) Hepatic encephalopathy Narrative/Plan: 60-year-old female who presented to the emergency department with complaints of decreased mental clarity, some confusion, and forgetfulness as well as fatigue. 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 She has no previous history of alcohol abuse or current alcohol use. She follows with Dr. Anderson from [facility] who recently did an EGD and found esophageal varices which were banded. He has referred the patient and she has been following with Dr. Cruz from [facility] liver specialist. She has no previous history of hepatic encephalopathy. On admission lab work showed an ammonia level of 50, total bilirubin 2.4, alkaline phosphatase 165, AST 90, ALT 49. She was started on lactulose 30 g and has had 2 doses since admission. Patient stating that she is now feeling better, more alert and clear minded. Patient is showing signs of hepatic encephalopathy related to decompensated cirrhosis of the liver. Current Visit: Yes Status: Acute Code(s): K72.90 - HEPATIC FAILURE, UNSPECIFIED WITHOUT COMA SNOMED Code(s): 70253400 (2) Decompensation of cirrhosis of liver Current Visit: Yes Status: Acute Code(s): K72.90 - HEPATIC FAILURE, UNSPECIFIED WITHOUT COMA; K74.60 - UNSPECIFIED CIRRHOSIS OF LIVER SNOMED Code(s): 890725717 Plan: 1. Continue symptomatic and supportive care 2. Patient may have regular diet 3. Continue lactulose 30 g 3 times a day, titrate to have 3-4 bowel movements daily 4. Patient will need to follow-up with her liver specialist at [facility] Thank you for this consultation, the patient is cleared from gastroenterology for discharge Dr. Holden I agree with the dictator's note, documented as a scribe by Bina Forman.
== END 2021-04-10 14:39 | disposition home or self-care (01) | DRG 433 ==
LOC: EC 16:38 → 5NMEDONC 20:32 → UNDODISIN 04-09 15:13
PROVIDERS: ADMIT Internal Medicine; ATTEND Internal Medicine
DX: K74.69 Other cirrhosis of liver (principal); N39.0 Urinary tract infection, site not specified; R18.8 Other ascites; K72.90 Hepatic failure, unspecified without coma; L40.9 Psoriasis, unspecified; E03.9 Hypothyroidism, unspecified; I10 Essential (primary) hypertension; D69.6 Thrombocytopenia, unspecified; E11.9 Type 2 diabetes mellitus without complications; Z79.890 Hormone replacement therapy; Z79.4 Long term (current) use of insulin; Z87.11 Personal history of peptic ulcer disease; Z79.899 Other long term (current) drug therapy; Z87.19 Personal history of other diseases of the digestive system
CPT/HCPCS: 36415; 70450; 80053; 81001; 82140; 82150; 83605; 83690; 85025; 87086; 96361; 96374; 99285

== ENCOUNTER → 2021-04-16 | Outpatient (CLI) | payer OTHER | END | disposition home or self-care (01) | LOC: LABWHC1 10:07 | PROVIDERS: ATTEND Family Medicine | DX: K74.60 Unspecified cirrhosis of liver (principal) | CPT/HCPCS: 36415; 82140 ==

== ENCOUNTER → 2021-05-02 | Outpatient (CLI) | payer OTHER ==
--- NOTE | 2021-05-02 07:35 | CT ---
EXAMINATION TYPE: CT abdomen pelvis wo con DATE OF EXAM: 05/02/2021 HISTORY: Lt Flank pain and hematuria. CT DLP: 1499.6 mGycm. Automated Exposure Control for Dose Reduction was Utilized. TECHNIQUE: CT scan of the abdomen and pelvis is performed without oral or IV contrast. COMPARISON: NONE FINDINGS: Within the limitations of a non-contrast study, the following observations are made. LUNG BASES: No significant abnormality is appreciated. LIVER/GB: Liver is heterogeneous in appearance with lobulated peripheral nodular contour. Liver sligh tly small in size. Findings consistent with underlying cirrhosis. Trace ascites along the right anter ior superior margin. Cholecystectomy clips. PANCREAS: No significant abnormality is seen. SPLEEN: Splenomegaly is present measuring 17.1 cm long axis axial image 39 and 17.5 cm craniocaudal d imension coronal image 59. Incidental splenule inferior hilum axial image 52 ADRENALS: No significant abnormality is seen. KIDNEYS: There are 2 calculi measuring between 2 to 3 mm upper pole left kidney coronal image 64. The re is a triangular-shaped 1.8 cm calculus mid to lower pole of the right kidney coronal image 64 fill ing calyx. No hydronephrosis or obstructing ureteral calculi seen bilaterally. No intraluminal calcul us in bladder. BOWEL: Appendicolith that the appendix base coronal image 45. Appendix is not dilated ascending from the cecum in the right lower quadrant. Mild to moderate diffuse colonic fecal prominence greatest in the right left and transverse colon. No suspicious small or large bowel dilatation.. GENITAL ORGANS: Anteverted uterus. Small to moderate amount of free fluid throughout the pelvis inclu ding cul-de-sac and anterior pelvis. No adnexal masses. LYMPH NODES: No greater than 1cm abdominal or pelvic lymph nodes are appreciated. Mild fat stranding and edematous change throughout the abdominal mesentery greatest in the right versus left aspect. Fin ding likely on the basis of ascites related to portal venous hypertension. OSSEOUS STRUCTURES: No significant abnormality is seen. OTHER: No significant additional abnormality is seen. IMPRESSION: 1. Bilateral nonobstructing renal calculi as detailed above. No hydronephrosis or obstructing uretera l calculi seen bilaterally. 2. Cirrhosis with evidence of underlying portal venous hypertension as there is splenomegaly and smal l amount of intraperitoneal ascites. 3. Appendicolith at base without convincing CT evidence for acute appendicitis.
[2021-05-02 13:23] LABS: Appearance,Urine Clear (Clear); Bilirubin,Urine Negative (Negative); Blood,Urine Negative (Negative); Color,Urine Yellow; Glucose,Urine (UA) 3+ (Negative); Ketones,Urine Negative (Negative); Leukocyte Esterase,Urine Negative (Negative); Nitrite,Urine Negative (Negative); PH, Urine 6.5 (5.0-8.0); Protein,Urine Negative (Negative); Specific Gravity,Urine 1.009 (1.001-1.035); Urobilinogen,Urine <2.0 mg/dL (<2.0)
== END | disposition home or self-care (01) ==
LOC: RADCTMAIN 07:01
PROVIDERS: ATTEND Family Medicine
DX: N20.0 Calculus of kidney (principal); K74.60 Unspecified cirrhosis of liver; K76.6 Portal hypertension; R16.1 Splenomegaly, not elsewhere classified; R18.8 Other ascites
CPT/HCPCS: 74176; 81003; 87086

== ENCOUNTER → 2021-07-08 | Outpatient (CLI) | payer OTHER ==
--- NOTE | 2021-07-08 13:58 | XR ---
EXAMINATION TYPE: XR KUB DATE OF EXAM: 07/08/2021 COMPARISON: NONE HISTORY: Right-sided renal stones TECHNIQUE: One view abdominal series FINDINGS: The osseous structures are intact. The bowel gas pattern is nonspecific. There is a 1.2 cm lower maria teresa e right renal calculus. Surgical clips in the right upper quadrant. Hypertrophic change of the spine are arthropathy of the hips. Diffuse osteopenia.. IMPRESSION: 1. Nonspecific abdomen. 1.2 cm right upper quadrant renal stone.
== END | disposition home or self-care (01) ==
LOC: RADXRMAIN 13:35
PROVIDERS: ATTEND Urology
DX: N20.0 Calculus of kidney (principal)
CPT/HCPCS: 74018

== ENCOUNTER → 2021-07-08 | Outpatient (CLI) | payer OTHER ==
[2021-07-08 21:01] LABS: African American GFR (CKD) 40.8 (60.0-200.0); Albumin 3.1 g/dL (3.8-4.9); Albumin/Globulin Ratio 1.17 (1.60-3.17); Anion Gap 10.8 mmol/L (4.00-12.00); BUN/Creat Ratio 20.44 Ratio (12.00-20.00); Blood Urea Nitrogen 32.3 mg/dL (9.0-27.0); Calcium 9.1 mg/dL (8.7-10.3); Carbon Dioxide 22.8 mmol/L (21.6-31.8); Globulin 2.7 g/dL (1.6-3.3); Non-African American GFR(CKD) 35.2 (60.0-200.0); Total Bilirubin 2.2 mg/dL (0.30-1.20); Total Protein 5.8 g/dL (6.2-8.2)
[2021-07-08 21:30] LABS: Basophils # (A) 0.06 X 10*3/uL (0.00-0.10); Basophils % (A) 1.2 %; Eosinophils # (A) 0.09 X 10*3/uL (0.04-0.35); Eosinophils % (A) 1.8 %; HCT 34.6 % (37.2-46.3); HGB 11.5 g/dL (12.0-15.0); Lymphocytes # (A) 0.67 X 10*3/uL (0.90-5.00); Lymphocytes % (A) 13.1 %; MCH 30.9 pg (27.0-32.0); MCHC 33.2 g/dL (32.0-37.0); Monocytes # (A) 0.55 X 10*3/uL (0.20-1.00); Monocytes % (A) 10.7 %; Neutrophils # (A) 3.73 X 10*3/uL (1.80-7.70); Neutrophils % (A) 72.8 %; Platelet Count 80 X 10*3/uL (140-440); RBC 3.72 X 10*6/uL (4.10-5.20); RDW 16.3 % (11.5-14.5); WBC 5.12 X 10*3/uL (4.50-10.00)
== END | disposition home or self-care (01) ==
LOC: LABWHC1 13:55
PROVIDERS: ATTEND Dermatology
DX: L40.0 Psoriasis vulgaris (principal); Z79.899 Other long term (current) drug therapy
CPT/HCPCS: 36415; 80053; 85025; 86480

== ENCOUNTER 2021-08-13 11:03 | Emergency (ER) | payer OTHER ==
[2021-08-13 11:20] VITALS: RESP 18; TEMP 97.7
[2021-08-13] MEDS ORDERED: SODIUM CHLORIDE 0.9% 500 ML 500 ML IV STA (12:03)
--- NOTE | 2021-08-13 12:12 | ED ---
General Adult HPI - General Chief complaint: Abdominal Pain Stated complaint: abd pain Time Seen by Provider: 08/13/21 11:26 Source: patient, RN notes reviewed Mode of arrival: ambulatory - History of Present Illness Initial comments: 61-year-old female with a past medical history of diabetes mellitus, liver cirrhosis, hypertension presents to the emergency room for a chief complaint of epigastric pain. Patient has had epigastric pain for the past week or so now. States it radiates around her right side into her back. Patient has a history of kidney stones and thinks it may be related to that. Patient also has a history of cirrhosis which is genetic. She called her liver doctor who wanted her to see her urologist. Her urologist recommended she come to the emergency room for a CAT scan. Patient does admit to nausea, denies vomiting. Denies fevers or chills. History of cholecystectomy. No history of ascites or paracentesis in the past. Patient denies any chest pain or shortness of breath.Patient has no other complaints at this time including shortness of breath, chest pain, headache, or visual changes. - Related Data Home Medications Medication Instructions Recorded Confirmed Atorvastatin [Lipitor] 10 mg PO HS 04/08/21 04/08/21 Cholecalciferol [Vitamin D3 (25 50 mcg PO DAILY 04/08/21 04/08/21 Mcg = 1000 Iu)] Dapagliflozin Propanediol [Farxiga] 10 mg PO DAILY 04/08/21 04/08/21 Folic Acid 1 mg PO DAILY 04/08/21 04/08/21 Furosemide [Lasix] 20 mg PO DAILY 04/08/21 04/08/21 Insulin Glargine [Lantus Vial] 22 unit SQ BID 04/08/21 04/09/21 Levothyroxine Sodium [Synthroid] 175 mcg PO MOTUWETHFRSA 04/08/21 04/08/21 Losartan Potassium 100 mg PO DAILY 04/08/21 04/08/21 Multivitamin/Iron/Folic Acid 1 tab PO DAILY 04/08/21 04/08/21 [Centrum Women Tablet] Ondansetron [Zofran ODT] 4 mg PO Q6H PRN 04/08/21 04/08/21 Secukinumab [Cosentyx Pen] 150 mg SQ Q28D 04/08/21 04/08/21 Spironolactone [Aldactone] 50 mg PO DAILY 04/08/21 04/08/21 Sucralfate [Carafate] 1 gm PO QID 04/08/21 04/08/21 glipiZIDE [Glucotrol] 5 mg PO BID-W/MEALS 04/08/21 04/08/21 metFORMIN HCL [Glucophage] 500 mg PO DAILY 04/08/21 04/08/21 ursodioL [Ursodiol] 500 mg PO TID 04/08/21 04/08/21 Previous Rx's Medication Instructions Recorded Lactulose [Cephulac] 30 gm PO TID 30 Days #1 bottle 04/10/21 Allergies Allergy/AdvReac Type Severity Reaction Status Date / Time No Known Allergies Allergy Verified 08/13/21 11:20 Review of Systems ROS Statement: Those systems with pertinent positive or pertinent negative responses have been documented in the HPI. ROS Other: All systems not noted in ROS Statement are negative. Past Medical History Past Medical History: Diabetes Mellitus, Hypertension Additional Past Medical History / Comment(s): brain lesions, genetic cirrhosis of the liver, DM II, History of Any Multi-Drug Resistant Organisms: None Reported Additional Past Surgical History / Comment(s): liver banding, right wrist, Past Anesthesia/Blood Transfusion Reactions: No Reported Reaction Past Psychological History: No Psychological Hx Reported Smoking Status: Never smoker Past Alcohol Use History: None Reported Past Drug Use History: None Reported General Exam General appearance: alert, in no apparent distress Head exam: Present: atraumatic Eye exam: Present: normal appearance, PERRL, EOMI. Absent: scleral icterus, conjunctival injection ENT exam: Present: normal exam, mucous membranes moist Neck exam: Present: normal inspection, full ROM. Absent: tenderness Respiratory exam: Present: normal lung sounds bilaterally. Absent: respiratory distress, wheezes Cardiovascular Exam: Present: regular rate, normal rhythm, normal heart sounds GI/Abdominal exam: Present: soft, distended, normal bowel sounds. Absent: tenderness, guarding, rebound Neurological exam: Present: alert Course Vital Signs 08/13/21 11:14 Temperature 97.7 F Pulse Rate 88 Respiratory 18 Rate Blood Pressure 103/68 O2 Sat by Pulse 99 Oximetry EKG Findings - EKG Comments: EKG Findings:: NSR, vent rate 70, print 142, QTc 466 Medical Decision Making - Medical Decision Making Vitals are stable. CBC and CMP are unremarkable. Urinalysis does show greater than 182 red blood cells. No significant evidence of infection. No bacteria. CT abdomen and pelvis with contrast was obtained. This d did show a small to moderate amount of ascites as well as anasarca. Nonobstructing bilateral renal calculi are noted. At this time patient does not want any pain control. Patient has a liver specialist at [facility]. I discussed options with patient including either being admitted here for a paracentesis with our GI team or following up with her own specialist. Patient states she has been following closely with them and has an MRI scheduled in 2 days and would prefer to follow up with an outpatient. She will contact them today. I also discussed she needs to follow up with her urologist for hematuria. She is agreeable to this. - Lab Data Result diagrams: 08/13/21 12:16 12 12:16 Lab Results 08/13/21 08/13/21 08/13/21 Range/Units 12:16 12:16 12:16 WBC 4.8 (3.8-10.6) k/uL RBC 4.37 (3.80-5.40) m/uL Hgb 13.9 (11.4-16.0) gm/dL Hct 42.9 (34.0-46.0) % MCV 98.2 (80.0-100.0) fL MCH 31.9 (25.0-35.0) pg MCHC 32.5 (31.0-37.0) g/dL RDW 13.9 (11.5-15.5) % Plt Count 120 L (150-450) k/uL MPV 9.8 Neutrophils % 75 % Lymphocytes % 11 % Monocytes % 8 % Eosinophils % 2 % Basophils % 1 % Neutrophils # 3.6 (1.3-7.7) k/uL Lymphocytes # 0.5 L (1.0-4.8) k/uL Monocytes # 0.4 (0-1.0) k/uL Eosinophils # 0.1 (0-0.7) k/uL Basophils # 0.0 (0-0.2) k/uL Sodium 136 L (137-145) mmol/L Potassium 4.4 (3.5-5.1) mmol/L Chloride 103 (98-107) mmol/L Carbon Dioxide 25 (22-30) mmol/L Anion Gap 8 mmol/L BUN 31 H (7-17) mg/dL Creatinine 1.18 H (0.52-1.04) mg/dL Est GFR (CKD-EPI)AfAm 58 (>60 ml/min/1.73 sqM) Est GFR (CKD-EPI)NonAf 50 (>60 ml/min/1.73 sqM) Glucose 82 (74-99) mg/dL Calcium 8.9 (8.4-10.2) mg/dL Total Bilirubin 2.7 H (0.2-1.3) mg/dL AST 60 H (14-36) U/L ALT 29 (4-34) U/L Alkaline Phosphatase 143 H (38-126) U/L Troponin I (0.000-0.034) ng/mL Total Protein 6.8 (6.3-8.2) g/dL Albumin 3.2 L (3.5-5.0) g/dL Amylase 48 (30-110) U/L Lipase 182 (23-300) U/L Urine Color Dark Brown Urine Appearance Cloudy H (Clear) Urine pH 5.5 (5.0-8.0) Ur Specific Franklin 1.037 H (1.001-1.035) Urine Protein 2+ H (Negative) Urine Glucose (UA) 3+ H (Negative) Urine Ketones Trace H (Negative) Urine Blood Large H (Negative) Urine Nitrite Negative (Negative) Urine Bilirubin 1+ H (Negative) Urine Urobilinogen 4.0 (<2.0) mg/dL Ur Leukocyte Esterase Small H (Negative) Urine RBC >182 H (0-5) /hpf Urine WBC 19 H (0-5) /hpf Ur Squamous Epith Cells 25 H (0-4) /hpf Hyaline Casts 4 H (0-2) /lpf Urine Mucus Many H (None) /hpf Urine Yeast (Budding) Occasional H (None) /hpf 08/13/ Range/Units 12:16 WBC (3.8-10.6) k/uL RBC (3.80-5.40) m/uL Hgb (11.4-16.0) gm/dL Hct (34.0-46.0) % MCV (80.0-100.0) fL MCH (25.0-35.0) pg MCHC (31.0-37.0) g/dL RDW (11.5-15.5) % Plt Count (150-450) k/uL MPV Neutrophils % % Lymphocytes % % Monocytes % % Eosinophils % % Basophils % % Neutrophils # (1.3-7.7) k/uL Lymphocytes # (1.0-4.8) k/uL Monocytes # (0-1.0) k/uL Eosinophils # (0-0.7) k/uL Basophils # (0-0.2) k/uL Sodium (137-145) mmol/L Potassium (3.5-5.1) mmol/L Chloride (98-107) mmol/L Carbon Dioxide (22-30) mmol/L Anion Gap mmol/L BUN (7-17) mg/dL Creatinine (0.52-1.04) mg/dL Est GFR (CKD-EPI)AfAm (>60 ml/min/1.73 sqM) Est GFR (CKD-EPI)NonAf (>60 ml/min/1.73 sqM) Glucose (74-99) mg/dL Calcium (8.4-10.2) mg/dL Total Bilirubin (0.2-1.3) mg/dL AST (14-36) U/L ALT (4-34) U/L Alkaline Phosphatase (38-126) U/L Troponin I <0.012 (0.000-0.034) ng/mL Total Protein (6.3-8.2) g/dL Albumin (3.5-5.0) g/dL Amylase (30-110) U/L Lipase (23-300) U/L Urine Color Urine Appearance (Clear) Urine pH (5.0-8.0) Ur Specific Franklin (1.001-1.035) Urine Protein (Negative) Urine Glucose (UA) (Negative) Urine Ketones (Negative) Urine Blood (Negative) Urine Nitrite (Negative) Urine Bilirubin (Negative) Urine Urobilinogen (<2.0) mg/dL Ur Leukocyte Esterase (Negative) Urine RBC (0-5) /hpf Urine WBC (0-5) /hpf Ur Squamous Epith Cells (0-4) /hpf Hyaline Casts (0-2) /lpf Urine Mucus (None) /hpf Urine Yeast (Budding) (None) /hpf Disposition Clinical Impression: Hematuria, Abdominal ascites, Anasarca Disposition: ADMITTED IP TO THIS [facility] Condition: Good Instructions (If sedation given, give patient instructions): Ascites (ED) Additional Instructions: Please follow-up with your GI specialist for ascites or fluid in the abdomen. Follow-up with your urologist for hematuria. If you have worsening symptoms return to the emergency room. Is patient prescribed a controlled substance at d/c from ED?: No Referrals: Minoo Gonzales DO [Primary Care Provider] - 1-2 days Time of Disposition: 14:06
[2021-08-13 12:26] LABS: Basophils % (A) 1 %; Eosinophils # (A) 0.1 k/uL (0-0.7); Eosinophils % (A) 2 %; HCT 42.9 % (34.0-46.0); HGB 13.9 gm/dL (11.4-16.0); Lymphocytes # (A) 0.5 k/uL (1.0-4.8); Lymphocytes % (A) 11 %; MCH 31.9 pg (25.0-35.0); MCHC 32.5 g/dL (31.0-37.0); MCV 98.2 fL (80.0-100.0); Mean Platelet Volume 9.8; Monocytes # (A) 0.4 k/uL (0-1.0); Monocytes % (A) 8 %; Neutrophils # (A) 3.6 k/uL (1.3-7.7); Neutrophils % (A) 75 %; Platelet Count 120 k/uL (150-450); RBC 4.37 m/uL (3.80-5.40); RDW 13.9 % (11.5-15.5); WBC 4.8 k/uL (3.8-10.6)
[2021-08-13 12:39] LABS: Albumin 3.2 g/dL (3.5-5.0); Calcium 8.9 mg/dL (8.4-10.2); Potassium 4.4 mmol/L (3.5-5.1); Total Bilirubin 2.7 mg/dL (0.2-1.3); Total Protein 6.8 g/dL (6.3-8.2)
[2021-08-13 12:50] LABS: Appearance,Urine Cloudy (Clear); Bilirubin,Urine 1+ (Negative); Blood,Urine Large (Negative); Budding Yeast,Urine Occasional /hpf; Color,Urine Dark Brown; Glucose,Urine (UA) 3+ (Negative); Hyaline Casts,Urine 4 /lpf (0-2); Ketones,Urine Trace (Negative); Leukocyte Esterase,Urine Small (Negative); Mucus,Urine Many /hpf; Nitrite,Urine Negative (Negative); PH, Urine 5.5 (5.0-8.0); Protein,Urine 2+ (Negative); RBC,Urine >182 /hpf (0-5); Specific Gravity,Urine 1.037 (1.001-1.035); Squamous Epithelial Cell,Urine 25 /hpf (0-4); WBC,Urine 19 /hpf (0-5)
--- NOTE | 2021-08-13 13:34 | CT ---
EXAMINATION TYPE: CT abdomen pelvis w con DATE OF EXAM: 08/13/2021 COMPARISON: 05/02/2021 HISTORY: LUQ to epigastric pain, sudden weight gain, known renal stone CT DLP: 3243.4 mGycm Automated exposure control for dose reduction was used. CONTRAST: CT scan of the abdomen pelvis is performed with IV Contrast, patient injected with 100 mL of Isovue 3 00. FINDINGS- LUNG BASES- No significant abnormality is appreciated. LIVER/GB-there is lobulated and heterogeneous correlate for hepatocellular disease or cirrhosis. Erum yed phase of imaging portal vein enhancement not well appreciated.. PANCREAS- No gross abnormality is seen. SPLEEN-spleen measures 15 cm compatible with splenomegaly. Accessory spleen noted.. Suspect mesenteri c and splenic varices ADRENALS- No gross abnormality is seen. KIDNEYS/BLADDER-1.4 cm lower pole nonobstructing right renal calculus. 1 mm upper pole left renal chanda culus. No hydronephrosis. BOWEL bowel gas pattern nonspecific.. LYMPH NODES- No greater than 1cm abdominal or pelvic lymph nodes areappreciated. Shotty adenopathy s een in the gastrohepatic ligament and mesentery measuring short axis less than a centimeter. OSSEOUS STRUCTURES-hypertrophic and degenerative changes of the spine. Chronic rib deformities noted. . OTHER- there is a small amount of ascites. Subcutaneous edema noted diffusely correlate for anasarca . Small lateral hernia. IMPRESSION- 1. Small to moderate amount of ascites, correlate for hepatocellular disease or cirrhosis with spleno megaly. 2. Anasarca. 3. Nonobstructing bilateral renal calculi.
[2021-08-13 14:16] VITALS: BP 117/84; PULSE 82
[2021-08-13 14:49] LABS: INR 1.1 (<1.2); Partial Thromboplastin Time 27.8 sec (22.0-30.0); Prothrombin Time 11.8 sec (9.0-12.0)
== END 2021-08-13 14:17 | disposition other institution (70) ==
LOC: EC 11:03
DX: R18.8 Other ascites (principal); R31.9 Hematuria, unspecified; E11.9 Type 2 diabetes mellitus without complications; I10 Essential (primary) hypertension; Z79.4 Long term (current) use of insulin; Z79.84 Long term (current) use of oral hypoglycemic drugs; Z79.890 Hormone replacement therapy; Z79.899 Other long term (current) drug therapy
CPT/HCPCS: 36415; 93005; 80053; 82150; 83690; 84484; 85025; 85610; 85730; 81001; 87086; 74177; 99285; Q9967

== ENCOUNTER 2021-09-15 13:29 | Inpatient (IN) | payer OTHER ==
--- NOTE | 2021-09-15 14:29 | ED ---
Altered Mental Status HPI - General Stated Complaint: AMS Time Seen by Provider: 09/15/21 13:40 Source: EMS Mode of arrival: EMS Limitations: altered mental status - History of Present Illness Initial Comments: Tianna is a 61yo F with extensive PMH significant for known liver disease. Patient is brought to the ER today for evaluation of altered mental status. states he believes she's been compliant with her medications and been taking her lactulose until she has 3-4 bowel movements daily but states that she woke up this morning and was completely unlike herself. Patient just seems confused and somewhat agitated. She is not febrile. She's not been sick lately. - Related Data Home Medications Medication Instructions Recorded Confirmed Atorvastatin [Lipitor] 10 mg PO SUTKEVINETHSA@2100 04/08/21 09/15/21 Cholecalciferol [Vitamin D3 (25 50 mcg PO DAILY 04/08/21 09/15/21 Mcg = 1000 Iu)] Dapagliflozin Propanediol [Farxiga] 10 mg PO DAILY 04/08/21 09/15/21 Furosemide [Lasix] 20 mg PO DAILY 04/08/21 09/15/21 Levothyroxine Sodium [Synthroid] 175 mcg PO DAILY 04/08/21 09/15/21 Losartan Potassium 100 mg PO DAILY 04/08/21 09/15/21 Multivitamin/Iron/Folic Acid 1 tab PO DAILY 04/08/21 09/15/21 [Centrum Women Tablet] Ondansetron [Zofran ODT] 4 mg PO Q6H PRN 04/08/21 09/15/21 Secukinumab [Cosentyx Pen] 150 mg SQ Q28D 04/08/21 09/15/21 Spironolactone [Aldactone] 50 mg PO DAILY 04/08/21 09/15/21 glipiZIDE [Glucotrol] 5 mg PO BID-W/MEALS 04/08/21 09/15/21 metFORMIN HCL [Glucophage] 500 mg PO DAILY 04/08/21 09/15/21 ursodioL [Ursodiol] 500 mg PO TID 04/08/21 09/15/21 Aspirin EC [Ecotrin Low Dose] 81 mg PO DAILY 09/15/21 09/15/21 Calcium Carbonate [Calcium] 1,200 mg PO DAILY 09/15/21 09/15/21 Lactulose [Cephulac] 10 gm PO TID 09/15/21 09/15/21 Pantoprazole [Protonix] 40 mg PO BID 09/15/21 09/15/21 Allergies Allergy/AdvReac Type Severity Reaction Status Date / Time No Known Allergies Allergy Verified 09/15/21 16:01 Review of Systems ROS Statement: Those systems with pertinent positive or pertinent negative responses have been documented in the HPI. ROS Other: All systems not noted in ROS Statement are negative. Past Medical History Past Medical History: Diabetes Mellitus, Hypertension Additional Past Medical History / Comment(s): brain lesions, genetic cirrhosis of the liver, DM II, History of Any Multi-Drug Resistant Organisms: None Reported Additional Past Surgical History / Comment(s): liver banding, right wrist, Past Anesthesia/Blood Transfusion Reactions: No Reported Reaction Past Psychological History: No Psychological Hx Reported Smoking Status: Never smoker Past Alcohol Use History: None Reported Past Drug Use History: None Reported General Exam - General Exam Comments Initial Comments: Physical Exam GENERAL: Chronically ill-appearing, morbidly obese, appears much older than stated age HENT: Normocephalic, Atraumatic. EYES: PERRL, EOMI PULMONARY: Unlabored respirations. No audible rales rhonchi or wheezing was noted. CARDIOVASCULAR: There is a regular rate and rhythm without any murmurs gallops or rubs. ABDOMEN: Abdomen is distended but soft, nontender Would wave palpable SKIN: Skin is clear with no lesions or rashes and otherwise unremarkable. : Deferred NEUROLOGIC: Alert to self only Moving all extremities MUSCULOSKELETAL: Generalized weakness 2+ pitting edema bilateral lower extremities PSYCHIATRIC: Agitated, will not follow commands Limitations: altered mental status Course Vital Signs 09/15/21 09/15/21 13:43 15:53 Temperature 98.2 F Pulse Rate 79 90 Respiratory 18 16 Rate Blood Pressure 102/66 101/64 O2 Sat by Pulse 99 98 Oximetry Medical Decision Making - Medical Decision Making Patient was seen and evaluated, history is obtained from the patient and at bedside as well as review of medical record Physical exam concerning for elevated ammonia level given the patient's altered mental status and generalized weakness Labs confirm elevated ammonia lactulose was ordered Patient was becoming agitated trying to get out of bed. Ativan and Soffer strings were ordered, was agreeable to this plan states she is required in the past Was discussed with Dr. dutta who accepts the admission for altered mental status due to hepatic encephalopathy MELD score 21 - 19.6% estimated 3 mo mortality - Lab Data Result diagrams: 09/15/21 14:34 09/15/21 14:34 Lab Results 09/15/21 09/15/21 09/15/21 Range/Units 14:34 14:34 14:34 WBC (3.8-10.6) k/uL RBC (3.80-5.40) m/uL Hgb (11.4-16.0) gm/dL Hct (34.0-46.0) % MCV (80.0-100.0) fL MCH (25.0-35.0) pg MCHC (31.0-37.0) g/dL RDW (11.5-15.5) % Plt Count (150-450) k/uL MPV Neutrophils % (Manual) % Lymphocytes % (Manual) % Monocytes % (Manual) % Eosinophils % (Manual) % Other Cells % Neutrophils # (Manual) (1.3-7.7) k/uL Lymphocytes # (Manual) (1.0-4.8) k/uL Monocytes # (Manual) (0-1.0) k/uL Eosinophils # (Manual) (0-0.7) k/uL Nucleated RBCs (0-0) /100 WBC Manual Slide Review Poikilocytosis (manual Anisocytosis (manual) Target Cells PT 19.0 H (9.0-12.0) sec INR 1.9 H (<1.2) APTT 25.5 (22.0-30.0) sec Sodium 133 L (137-145) mmol/L Potassium 5.0 (3.5-5.1) mmol/L Chloride 107 (98-107) mmol/L Carbon Dioxide 20 L (22-30) mmol/L Anion Gap 6 mmol/L BUN 30 H (7-17) mg/dL Creatinine 1.18 H (0.52-1.04) mg/dL Est GFR (CKD-EPI)AfAm 58 (>60 ml/min/1.73 sqM) Est GFR (CKD-EPI)NonAf 50 (>60 ml/min/1.73 sqM) Glucose 104 H (74-99) mg/dL Calcium 8.6 (8.4-10.2) mg/dL Magnesium 1.9 (1.6-2.3) mg/dL Total Bilirubin 1.9 H (0.2-1.3) mg/dL AST 66 H (14-36) U/L ALT 26 (4-34) U/L Alkaline Phosphatase 138 H (38-126) U/L Ammonia 189 H (<30) umol/L Total Protein 5.5 L (6.3-8.2) g/dL Albumin 2.4 L (3.5-5.0) g/dL 09/15/21 Range/Units 14:34 WBC 4.4 (3.8-10.6) k/uL RBC 4.07 (3.80-5.40) m/uL Hgb 13.0 (11.4-16.0) gm/dL Hct 39.5 (34.0-46.0) % MCV 97.1 (80.0-100.0) fL MCH 32.0 (25.0-35.0) pg MCHC 33.0 (31.0-37.0) g/dL RDW 14.5 (11.5-15.5) % Plt Count (150-450) k/uL MPV 12.4 Neutrophils % (Manual) 84 % Lymphocytes % (Manual) 10 % Monocytes % (Manual) 5 % Eosinophils % (Manual) 1 % Other Cells % [employer] Neutrophils # (Manual) 3.70 (1.3-7.7) k/uL Lymphocytes # (Manual) 0.44 L (1.0-4.8) k/uL Monocytes # (Manual) 0.22 (0-1.0) k/uL Eosinophils # (Manual) 0.04 (0-0.7) k/uL Nucleated RBCs 0 (0-0) /100 WBC Manual Slide Review Performed Poikilocytosis (manual Present Anisocytosis (manual) Present Target Cells Present PT (9.0-12.0) sec INR (<1.2) APTT (22.0-30.0) sec Sodium (137-145) mmol/L Potassium (3.5-5.1) mmol/L Chloride (98-107) mmol/L Carbon Dioxide (22-30) mmol/L Anion Gap mmol/L BUN (7-17) mg/dL Creatinine (0.52-1.04) mg/dL Est GFR (CKD-EPI)AfAm (>60 ml/min/1.73 sqM) Est GFR (CKD-EPI)NonAf (>60 ml/min/1.73 sqM) Glucose (74-99) mg/dL Calcium (8.4-10.2) mg/dL Magnesium (1.6-2.3) mg/dL Total Bilirubin (0.2-1.3) mg/dL AST (14-36) U/L ALT (4-34) U/L Alkaline Phosphatase (38-126) U/L Ammonia (<30) umol/L Total Protein (6.3-8.2) g/dL Albumin (3.5-5.0) g/dL Disposition Clinical Impression: Altered mental status, Hepatic encephalopathy Disposition: ADMITTED IP TO THIS [facility] Condition: Serious Is patient prescribed a controlled substance at d/c from ED?: No Referrals: Minoo Gonzales DO [Primary Care Provider] - 1-2 days
[2021-09-15 15:13] LABS: Albumin 2.4 g/dL (3.5-5.0); Calcium 8.6 mg/dL (8.4-10.2); Magnesium 1.9 mg/dL (1.6-2.3); Total Bilirubin 1.9 mg/dL (0.2-1.3); Total Protein 5.5 g/dL (6.3-8.2)
[2021-09-15 15:51] LABS: INR 1.9 (<1.2); Partial Thromboplastin Time 25.5 sec (22.0-30.0)
[2021-09-15] MEDS ORDERED: LACTULOSE 20 GM/30 ML CUP PO ONE (16:00)
[2021-09-15 16:09] LABS: HCT 39.5 % (34.0-46.0); MCV 97.1 fL (80.0-100.0); Mean Platelet Volume 12.4; RBC 4.07 m/uL (3.80-5.40); RDW 14.5 % (11.5-15.5); WBC 4.4 k/uL (3.8-10.6)
[2021-09-15] MEDS ORDERED: LORazepam 2 MG/ML INJ IV STA (16:33)
[2021-09-15 16:40] LABS: Eosinophils # (M) 0.04 k/uL (0-0.7); Lymphocytes # (M) 0.44 k/uL (1.0-4.8); Monocytes # (M) 0.22 k/uL (0-1.0); Neutrophils % (M) 84 %; Nucleated Red Blood Cells 0 /100 WBC (0-0); Total Cells Counted 100
[2021-09-15 16:42] LABS: Anisocytosis (M) Present; Poikilocytosis (M) Present; Target Cells Present
[2021-09-15] MEDS ORDERED: NALOXONE 0.4 MG/ML 1 ML VIAL IV PRN (17:42)
[2021-09-15] MEDS ORDERED: LACTULOSE 200 GM/300 ML (FROM 1/2 GAL JUG) RECTAL ONE (18:00)
[2021-09-15] MEDS ORDERED: LACTULOSE 200 GM/300 ML (FROM 1/2 GAL JUG) PO ONE (18:00)
[2021-09-15] MEDS ORDERED: 1: THIAMINE 100 MG, FOLIC ACID 1 MG in SODIUM CHLORIDE 0.9% 1,000 ML 2: SODIUM CHLORIDE IVPB SCH (19:00)
[2021-09-15] MEDS ORDERED: LORazepam 2 MG/ML INJ IV PRN (19:01)
--- NOTE | 2021-09-15 19:13 | HP ---
HISTORY AND PHYSICAL CHIEF COMPLAINT: Change in mental status. HISTORY OF PRESENT ILLNESS: This 61-year-old woman with a past medical history of diabetes type 2, hypertension, history of brain lesion, history of genetic cirrhosis of the liver, history of diabetes type 2, being followed by primary physician elsewhere in the outpatient setting, recently had abdominal paracentesis from [facility]. The family noted the patient is confused and the patient the patient apparently had eaten some chicken yesterday and the patient has been compliant with medications. The patient became combative and confused. Patient was taken to [facility] and admitted to the hospital further evaluation and treatment. There is no history of fever, rigors or chills. No history of headache, loss of consciousness, seizures at this time. Ammonia was found to be 189, and creatinine is also found to be 1.18. The patient was actually admitted here to the hospital a few months ago with features of hepatic encephalopathy and advanced cirrhosis of the liver. A detailed history cannot be obtained, the patient is stuporous. Most of the history is taken from my discussion with the at the bedside and review of chart at this time. PAST MEDICAL HISTORY: History of cirrhosis of liver, history of hypertension, history of brain lesions. MEDICATIONS: Prior to admission home medications are reviewed and include: Glipizide, Cephulac, Protonix, calcium, Glucophage, nd Zofran. Doses reviewed. ALLERGIES: None. FAMILY HISTORY: No history of heart disease or stroke in the family. SOCIAL HISTORY: No history of smoking. No history of alcohol. REVIEW OF SYSTEMS: Could not be taken because of the patient's mental status. PHYSICAL EXAMINATION: Patient is stuporous. Pulse 79, blood pressure 100/63, respiration 18, temperature 98.4, pulse ox 98% on room air. HEENT is conjunctivae pale. Oral mucosa moist. NECK is suppled. CARDIAC: S1, S2. RESPIRATIONS: Breath sounds diminished in the bases. ABDOMEN: Soft, obese. Minimal dullness in the flanks present/ LEGS: Bilateral leg edema. NERVOUS SYSTEM: Higher functions as mentioned earlier, the patient is restless occasionally. Hepatic flap could not be determined. SKIN: No ulcers, rashes or bleeding. JOINTS: No active deforming arthropathy. LABS: CBC WBC 4.2, hemoglobin is 13, lymphocytes are 0.44, and INR 1.9. Sodium 130. Other labs are noted. ASSESSMENT: 1. Change in mental status, acute hepatic encephalopathy. 2. History of cirrhosis of liver, genetic. 3. History of ascites and abdominal paracentesis. 4. Coagulopathy secondary to chronic liver disease. 5. Hyponatremia. 6. Increased creatinine with chronic kidney disease stage 3. 7. Elevated bilirubin. 8. Elevated AST. 9. Elevated ammonia. 10.Hypoalbuminemia secondary to chronic liver disease. 11.History of diabetes type 2. 12.Hypertension. 13.History of brain lesions. 14.Obesity with body mass index of 38. RECOMMENDATIONS AND DISCUSSION: This 61-year-old woman who presented with multiple complex medical issues, we will monitor the patient closely. I recommend to continue current medications. I would recommend lactulose enema q.4 to 6 and repeat ammonia levels. Empiric antibiotics. Obtain the cultures. Repeat labs in the morning. Gastroenterology evaluation. Prognosis guarded because of multiple complex medical issues. Further recommendations to follow. MMROSA ML / MIGUELN: [id number] / MTDIsabel
[2021-09-15 20:54] LABS: Glucose,Whole Blood 100 mg/dL (75-99)
[2021-09-15] MEDS: INSULIN ASPART (NovoLOG) 100 UNIT/ML VIAL SQ SCH (21:23)
[2021-09-15] MEDS: PANTOPRAZOLE 40 MG/10 ML VIAL IVP SCH (21:26)
--- NOTE | 2021-09-15 21:28 | XR ---
EXAMINATION TYPE: XR chest 1V portable DATE OF EXAM: 09/15/2021 COMPARISON: NONE HISTORY: Altered mental status. TECHNIQUE: Single frontal view of the chest is obtained. FINDINGS: Cardiac mediastinal silhouette is within normal limits. The crowding bilaterally. Low lung volumes. No large effusion or pneumothorax. IMPRESSION: Low lung volumes with bihilar vascular crowding. Superimposed airspace disease is diffic ult to exclude.
[2021-09-15 23:05] LABS: Appearance,Urine Clear (Clear); Bilirubin,Urine Negative (Negative); Blood,Urine Negative (Negative); Color,Urine Yellow; Glucose,Urine (UA) 3+ (Negative); Hyaline Casts,Urine 1 /lpf (0-2); Ketones,Urine Trace (Negative); Leukocyte Esterase,Urine Small (Negative); Mucus,Urine Rare /hpf; Nitrite,Urine Negative (Negative); PH, Urine 6.5 (5.0-8.0); Protein,Urine Trace (Negative); RBC,Urine 2 /hpf (0-5); Specific Gravity,Urine 1.021 (1.001-1.035); Squamous Epithelial Cell,Urine 2 /hpf (0-4); Urobilinogen,Urine <2.0 mg/dL (<2.0); WBC,Urine 4 /hpf (0-5)
[2021-09-16] MEDS ORDERED: LACTULOSE 200 GM/300 ML (FROM 1/2 GAL JUG) RECTAL ONE (00:30)
[2021-09-16 07:08] LABS: Glucose,Whole Blood 69 mg/dL (75-99)
[2021-09-16 07:33] LABS: Glucose,Whole Blood 84 mg/dL (75-99)
[2021-09-16 08:57] LABS: ALT 31 U/L (4-34); AST 70 U/L (14-36); African American GFR (CKD) 66 (>60 ml/min/1.73 sqM); Albumin 2.6 g/dL (3.5-5.0); Albumin/Globulin Ratio 0.8; Alkaline Phosphatase 118 U/L (38-126); Amylase 46 U/L (30-110); Anion Gap 6 mmol/L; Blood Urea Nitrogen 27 mg/dL (7-17); Carbon Dioxide 22 mmol/L (22-30); Chloride 108 mmol/L (98-107); Globulin 3.3 g/dL; Glucose 140 mg/dL (74-99); Lipase 261 U/L (23-300); Non-African American GFR(CKD) 57 (>60 ml/min/1.73 sqM); Potassium 4.6 mmol/L (3.5-5.1); Sodium 136 mmol/L (137-145); Total Bilirubin 2.7 mg/dL (0.2-1.3); Total Protein 5.9 g/dL (6.3-8.2)
[2021-09-16] MEDS: INSULIN ASPART (NovoLOG) 100 UNIT/ML VIAL SQ SCH ×4 (09:29→21:11)
[2021-09-16] MEDS: PANTOPRAZOLE 40 MG/10 ML VIAL IVP SCH ×2 (09:39→21:09)
[2021-09-16 11:25] LABS: Basophils # (A) 0.1 k/uL (0-0.2); Basophils % (A) 1 %; Eosinophils # (A) 0.1 k/uL (0-0.7); Eosinophils % (A) 2 %; HCT 37.6 % (34.0-46.0); HGB 12.1 gm/dL (11.4-16.0); Lymphocytes # (A) 0.4 k/uL (1.0-4.8); Lymphocytes % (A) 6 %; MCHC 32.2 g/dL (31.0-37.0); MCV 99.2 fL (80.0-100.0); Mean Platelet Volume 9.7; Monocytes # (A) 0.6 k/uL (0-1.0); Monocytes % (A) 10 %; Neutrophils # (A) 4.7 k/uL (1.3-7.7); Neutrophils % (A) 79 %; RBC 3.79 m/uL (3.80-5.40); WBC 5.9 k/uL (3.8-10.6)
[2021-09-16] MEDS ORDERED: KETOROLAC 30 MG/ML 1 ML VIAL IVP STA (11:41)
[2021-09-16 11:50] LABS: Glucose,Whole Blood 132 mg/dL (75-99)
[2021-09-16 13:50] LABS: Platelet Count 93 k/uL (150-450)
[2021-09-16] MEDS ORDERED: ONDANSETRON ODT 4 MG TAB PO PRN (15:16)
[2021-09-16] MEDS: LOSARTAN 50 MG TAB PO SCH (15:58)
[2021-09-16] MEDS: LACTULOSE 20 GM/30 ML CUP PO SCH ×2 (16:00→21:10)
[2021-09-16] MEDS ORDERED: HYDROcodone/APAP 5-325MG 1 EACH TAB PO PRN (16:04)
--- NOTE | 2021-09-16 16:47 | PN ---
PROGRESS NOTE DATE OF SERVICE: 09/16/2020 This 61-year-old woman was admitted with significant change in mental status, acute hepatic encephalopathy, is being closely monitored at this time. Ammonia level was yesterday 189. The patient is going to take lactulose and today's 553. Patient complaining of back pain. Renal function is noted. The patient also had abdominal paracentesis recently. COVID 19 is negative. Past medical history reviewed. REVIEW OF SYSTEMS: Cardiovascular system: No angina. Respiration as mentioned earlier. GI: As mentioned earlier. : No dysuria. Nervous system: No numbness or weakness. CURRENT MEDICATIONS: Reviewed and include: Aspirin. Lipitor, Tums, Rocephin, Glucotrol, NovoLog, Cephulac. Doses reviewed. PHYSICAL EXAMINATION: Patient is alert, oriented x2. Pulse 89, blood pressure 103/60, respirations 16, temperature 98 degrees, pulse ox 97% on room air. HEENT: Conjunctivae normal. Neck: No JVD. Cardiovascular: S1, S2, muffled. Respiratory: Breath sounds diminished at the bases. Scattered rhonchi. Abdomen: Soft. Nontender. Legs: No edema. No swelling. Nervous system: No focal deficits. LABS: Sodium 137. Other labs noted. ASSESSMENT: 1. Change in mental status acute hepatic encephalopathy. 2. Elevated serum ammonia. 3. History of cirrhosis of the liver, genetic causes. 4. History of ascites and abdominal paracentesis recently. 5. Coagulopathy secondary to chronic liver disease. 6. Hyponatremia. 7. Increased creatinine with chronic kidney disease stage 3 baseline. 8. Elevated bilirubin. 9. Elevated AST. 10.Elevated ammonia. 11.Hypoalbuminemia secondary to chronic liver disease. 12.History of diabetes type 2. 13.Hypertension. 14.History of brain lesions. 15.Obesity with body mass index of 38. RECOMMENDATIONS AND DISCUSSION: Recommend to continue current medications, management and symptomatic treatment. Otherwise, at this time, I recommend continue with lactulose. Repeat labs. Continue with empiric antibiotics. Follow the cultures. Prognosis guarded and further recommendations to follow. Symptomatic treatment of pain also offered. MMODL / IJN: [id number] /
[2021-09-16 17:29] LABS: Glucose,Whole Blood 161 mg/dL (75-99)
[2021-09-16] MEDS ORDERED: PHYTONADIONE ORAL 5 MG/5 ML ORAL.SYRG PO STA (17:45)
[2021-09-16] MEDS: glipiZIDE 5 MG TAB PO SCH (18:06)
[2021-09-16] MEDS: ursodioL 300 MG CAP PO SCH ×2 (18:12→21:10)
--- NOTE | 2021-09-16 18:37 | US ---
EXAMINATION TYPE: US abdomen limited DATE OF EXAM: 09/16/2021 COMPARISON: CT CLINICAL HISTORY: ascites. Patient stated has non alcoholic cirrhosis; had paracentesis x 2 at [facility]; is being evaluated for liver transplant.. Ascites is noted in all four abdominal quadrants with largest ascites pocket in RLQ = 13.4cm A/P. IMPRESSION: There is moderate amount of abdominal ascites fluid demonstrated.
[2021-09-16 20:29] LABS: Glucose,Whole Blood 149 mg/dL (75-99)
[2021-09-16] MEDS ORDERED: PANTOPRAZOLE 40 MG TABLET PO SCH (21:00)
[2021-09-17 01:27] LABS: INR 1.2 (<1.2); Prothrombin Time 12.6 sec (9.0-12.0)
[2021-09-17] MEDS: ursodioL 300 MG CAP PO SCH ×3 (06:25→12:39)
[2021-09-17] MEDS ORDERED: LEVOTHYROXINE 88 MCG TAB PO SCH (06:30)
[2021-09-17 07:05] LABS: Glucose,Whole Blood 82 mg/dL (75-99)
[2021-09-17] MEDS ORDERED: NON FORMULARY DRUG (Dapagliflozin Propanediol [Farxiga] 10 MG Tablet) PO SCH (09:00)
[2021-09-17] MEDS ORDERED: CHOLECALCIFEROL 25 MCG (1000 IU) TABLET PO SCH (09:00)
[2021-09-17] MEDS ORDERED: ASPIRIN 81 MG PO SCH (09:00)
[2021-09-17] MEDS ORDERED: MULTIVITAMINS, THERA 1 EACH TAB PO SCH (09:00)
[2021-09-17] MEDS ORDERED: CALCIUM CARBONATE 500 MG CHEWABLE PO SCH (09:00)
[2021-09-17] MEDS ORDERED: metFORMIN 500 MG TAB PO SCH (09:00)
[2021-09-17] MEDS ORDERED: SPIRONOLACTONE 25 MG TAB PO SCH (09:00)
[2021-09-17 09:54] LABS: INR 1.23 (0.90-1.11); Prothrombin Time 13.4 sec (9.9-11.9)
[2021-09-17] MEDS: INSULIN ASPART (NovoLOG) 100 UNIT/ML VIAL SQ SCH ×2 (10:15→12:41)
[2021-09-17 10:28] LABS: African American GFR (CKD) 65 (>60 ml/min/1.73 sqM); Anion Gap 2 mmol/L; Blood Urea Nitrogen 29 mg/dL (7-17); Calcium 8.3 mg/dL (8.4-10.2); Carbon Dioxide 20 mmol/L (22-30); Chloride 109 mmol/L (98-107); Glucose 74 mg/dL (74-99); Non-African American GFR(CKD) 56 (>60 ml/min/1.73 sqM); Potassium 4.5 mmol/L (3.5-5.1); Sodium 131 mmol/L (137-145)
[2021-09-17 10:52] VITALS: RESP 16
[2021-09-17 11:01] LABS: Basophils % (A) 1 %; Eosinophils # (A) 0.1 k/uL (0-0.7); Eosinophils % (A) 2 %; HCT 35.7 % (34.0-46.0); HGB 11.5 gm/dL (11.4-16.0); Lymphocytes # (A) 0.6 k/uL (1.0-4.8); Lymphocytes % (A) 11 %; MCH 32.1 pg (25.0-35.0); MCHC 32.3 g/dL (31.0-37.0); MCV 99.4 fL (80.0-100.0); Macrocytosis Slight; Monocytes # (A) 0.5 k/uL (0-1.0); Monocytes % (A) 10 %; Neutrophils # (A) 3.8 k/uL (1.3-7.7); Neutrophils % (A) 73 %; RBC 3.59 m/uL (3.80-5.40); RDW 14.6 % (11.5-15.5); WBC 5.3 k/uL (3.8-10.6)
[2021-09-17 11:05] LABS: Platelet Count 84 k/uL (150-450)
[2021-09-17 12:22] LABS: Glucose,Whole Blood 139 mg/dL (75-99)
[2021-09-17] MEDS: glipiZIDE 5 MG TAB PO SCH (12:29)
[2021-09-17] MEDS: LOSARTAN 50 MG TAB PO SCH (12:39)
[2021-09-17] MEDS: PANTOPRAZOLE 40 MG/10 ML VIAL IVP SCH (12:40)
[2021-09-17] MEDS: LACTULOSE 20 GM/30 ML CUP PO SCH (12:40)
--- NOTE | 2021-09-17 13:16 | US ---
Ultrasound-guided paracentesis. DATE OF EXAM: 09/17/2021 CLINICAL HISTORY: Ascites The procedure was discussed with the patient. The risks, complications, benefits, and alternatives we re discussed and any questions were answered. Informed consent was obtained. The patient was placed s upine on the ultrasound table and prepped and draped in the usual sterile fashion. All elements of maximal barrier technique were utilized. Under ultrasound guidance, access into the right lower quadrant was obtained, via the paracentesis catheter system and direct ultrasound guidanc e. Approximately 6.2 liters of straw-colored fluid was removed. The patient was stable throughout the pr ocedure and remained stable upon discharge from Department of Radiology. IMPRESSION: Successful paracentesis under ultrasound guidance.
[2021-09-17 14:20] VITALS: BP 106/55; PULSE 85; TEMP 98.4
[2021-09-17 20:34] LABS: Appearance,BF Slightly Cloudy
[2021-09-17] MEDS ORDERED: ATORVASTATIN 10 MG TAB PO SCH (21:00)
[2021-09-17 23:37] LABS: LDH, Body Fluid Source Ascites; Total Protein, Body Fluid 911 mg/dL
[2021-09-18 00:19] LABS: Albumin, Fluid Source Ascites
--- NOTE | 2021-09-18 22:24 | P.DS ---
Providers Date of admission: 09/15/21 17:52 Attending physician: Brennan Bang MD Primary care physician: Minoo Gonzales DO Hospital Course: Final Diagnosis Change in mental status related to acute hepatic encephalopathy elevated serum ammonia history of cirrhosis of the liver, genetic causes history of ascites with recent abdominal paracentesis last at [facility] with cytology coagulopathy secondary to chronic liver disease hyponatremia increased creatinine with chronic kidney disease stage 3 at baseline elevated bilirubin elevated AST hypoalbuminemia secondary to chronic liver disease diabetes mellitus type 2 hypertension history of brain lesions obesity Discharge Disposition Patient is discharged home to follow up with her primary care team. She is instructed to take rifaximine as directed and to take lactulose as needed as well three times a day titrate for 3 to 4 loose BMs per day. Metformin was discontinued due to elevated liver enzymes related to chronic liver disease and there is risk for lactic acidosis. Losartan decreased to 50 mg PO daily. Patient will have repeat basic metabolic panel and ammonia level completed outpatient. Hospital Course This is a 61 year old female with known history of genetic cirrhosis of the liver. She is being evaluated for liver transplant. She does follow up with a specialist outpatient. Most recent paracentesis conducted last at [facility] with cytology. Patient presents to the [facility] with acute confusion and altered mental status and felt unlike herself. She has been compliant with medications and states that she has been taking lactulose as recommended to have 3 to 4 bowel movements per day. She came to floor agitated and combative. Abdomen ultrasound shows moderate amount of abdominal ascites fluid demonstrated. Chest xray on admission shows low lung volumes with bihilar vascular crowding. Superimposed airspace disease is difficult to exclude. Labs on admission include RBC of 3.59, INR 1.9, she did received 5 of vitamin K and INR decreased to 1.23, sodium 133, potassium 5, BUN 30, creatinine 1.18, glucose 100's, mag 1.9, AST 66, ALT 26, Alk Phos 138, Ammonia 189, total protein 5.5, albumin 2.4, amylase 46, lipase 261. Urinalysis shows trace protein, 3+ glucose, trace ketones, small luekocyte esterase, rare mucus. After being resumed on lactulose, patients mentation improved drastically she is now alert and oriented x3. Patient underwent successful paracentesis with removal of 6.2 liters of straw colored fluid. Blood culture negative. Cytology and cultures pending on ascitic fluid. COVID PCR not detected. Vital signs this admission: patient has been nonfebrile, herat rate 85, blood perssure 110/55, 100% on room air. 09/17/2021 Patient evaluated today before and after paracentesis. She has been alert and oriented x4, and appropriate. INR today 1.2. Patient underwent paracentesis and vital signs stable post. Lungs are clear, S1 S2 auscultated. Having loose bowel movements, denies dysuria, frequency, urgency. She denies cough, chest pain, or shortness of breath. Denies nausea or vomiting. Focal neurological exam is negative. She is cleared for discharge to continue home medications. Adjustments as documented above. Ammonia has decreased to 53. Please see medication reconciliation for a list of current medications. Thank you for allowing us to participate in the care of this patient. Patient Condition at Discharge: Fair Plan - Discharge Summary Discharge Rx Participant: No New Discharge Prescriptions: New Losartan [Cozaar] 50 mg PO DAILY #30 tab Continue ursodioL [Ursodiol] 500 mg PO TID Dapagliflozin Propanediol [Farxiga] 10 mg PO DAILY Calcium Carbonate [Calcium] 1,200 mg PO DAILY Ondansetron [Zofran ODT] 4 mg PO Q6H PRN PRN Reason: Nausea And Vomiting Secukinumab [Cosentyx Pen] 150 mg SQ Q28D Multivitamin/Iron/Folic Acid [Centrum Women Tablet] 1 tab PO DAILY Cholecalciferol [Vitamin D3 (25 Mcg = 1000 Iu)] 50 mcg PO DAILY Spironolactone [Aldactone] 50 mg PO DAILY glipiZIDE [Glucotrol] 5 mg PO BID-W/MEALS Levothyroxine Sodium [Synthroid] 175 mcg PO DAILY Atorvastatin [Lipitor] 10 mg PO SUTUWETHFRSA@2100 Pantoprazole [Protonix] 40 mg PO BID Aspirin EC [Ecotrin Low Dose] 81 mg PO DAILY Changed Lactulose [Cephulac] 10 gm PO TID #0 Furosemide [Lasix] 40 mg PO DAILY #60 tab Discontinued metFORMIN HCL [Glucophage] 500 mg PO DAILY Losartan Potassium 100 mg PO DAILY Discharge Medication List Atorvastatin [Lipitor] 10 mg PO SUTUWETHFRSA@2100 04/08/21 [History] Cholecalciferol [Vitamin D3 (25 Mcg = 1000 Iu)] 50 mcg PO DAILY 04/08/21 [History] Dapagliflozin Propanediol [Farxiga] 10 mg PO DAILY 04/08/21 [History] Levothyroxine Sodium [Synthroid] 175 mcg PO DAILY 04/08/21 [History] Multivitamin/Iron/Folic Acid [Centrum Women Tablet] 1 tab PO DAILY 04/08/21 [History] Ondansetron [Zofran ODT] 4 mg PO Q6H PRN 04/08/21 [History] Secukinumab [Cosentyx Pen] 150 mg SQ Q28D 04/08/21 [History] Spironolactone [Aldactone] 50 mg PO DAILY 04/08/21 [History] glipiZIDE [Glucotrol] 5 mg PO BID-W/MEALS 04/08/21 [History] ursodioL [Ursodiol] 500 mg PO TID 04/08/21 [History] Aspirin EC [Ecotrin Low Dose] 81 mg PO DAILY 09/15/21 [History] Calcium Carbonate [Calcium] 1,200 mg PO DAILY 09/15/21 [History] Pantoprazole [Protonix] 40 mg PO BID 09/15/21 [History] Furosemide [Lasix] 40 mg PO DAILY #60 tab 09/17/21 [Rx] Lactulose [Cephulac] 10 gm PO TID #0 09/17/21 [Rx] Losartan [Cozaar] 50 mg PO DAILY #30 tab 09/17/21 [Rx] Follow up Appointment(s)/Referral(s): Minoo Gonzales DO [Primary Care Provider] - 09/19/21 10:30 am Ambulatory/Diagnostic Orders: Basic Metabolic Panel [LAB.AMB] Time Frame: 2 Days, Location: None Selected Miscellaneous Lab Order [LAB.AMB] Time Frame: 3 Days, Location: None Selected Patient Instructions/Handouts: Paracentesis (DC) Activity/Diet/Wound Care/Special Instructions: Follow up with other outpatient specialists Continue Roxaximine outpatient with lactulose as needed, titrate to have 3 to 4 loose BMs per day Outpatient weekly paracentesis Discharge Disposition: HOME SELF-CARE
[2021-10-01] MEDS ORDERED: SECUKINUMAB 150 MG/ML SQ SCH (09:00)
== END 2021-09-17 16:28 | disposition home or self-care (01) | DRG 442 ==
LOC: EC 13:29 → 4SSUR 17:52
PROVIDERS: ADMIT Internal Medicine; ATTEND Internal Medicine
PROC: 0W9G3ZX Drainage of Peritoneal Cavity, Percutaneous Approach, Diagnostic (ICD-10-PCS; principal; 2021-09-17)
DX: K72.00 Acute and subacute hepatic failure without coma (principal); D68.4 Acquired coagulation factor deficiency; E87.1 Hypo-osmolality and hyponatremia; R18.8 Other ascites; Z20.822 Contact with and (suspected) exposure to COVID-19; I12.9 Hypertensive chronic kidney disease with stage 1 through stage 4 chronic kidney disease, or unspecified chronic kidney disease; K74.60 Unspecified cirrhosis of liver; N18.30 Chronic kidney disease, stage 3 unspecified; E11.22 Type 2 diabetes mellitus with diabetic chronic kidney disease; E66.9 Obesity, unspecified; E88.09 Other disorders of plasma-protein metabolism, not elsewhere classified; Z68.38 Body mass index [BMI] 38.0-38.9, adult; Z79.82 Long term (current) use of aspirin; Z79.890 Hormone replacement therapy; Z79.84 Long term (current) use of oral hypoglycemic drugs; Z79.899 Other long term (current) drug therapy
CPT/HCPCS: 36415; 49083; 71045; 76705; 80048; 80053; 81001; 82042; 82140; 82150; 83615; 83690; 83735; 84157; 85025; 85610; 85730; 87040; 87070; 87075; 87205; 87635; 89050; 96374; 99285

== ENCOUNTER 2021-10-01 13:00 | Day surgery (SDC) | payer OTHER ==
[2021-10-01 13:36] LABS: Mean Platelet Volume 9.7; Platelet Count 114 k/uL (150-450)
[2021-10-01 13:49] VITALS: TEMP 97.9
[2021-10-01 13:52] LABS: INR 1.1 (<1.2); Prothrombin Time 12.1 sec (9.0-12.0)
[2021-10-01] MEDS: ALBUMIN HUMAN 25% 50 ML in EMPTY BAG 1 BAG IVPB SCH ×4 (14:18→15:09)
--- NOTE | 2021-10-01 15:13 | US ---
EXAMINATION TYPE: US paracentesis abd w/image DATE OF EXAM: 10/01/2021 COMPARISON: NONE HISTORY: Ascites. PROCEDURE: Maximal barrier technique was utilized. The skin overlying a suitable pocket of fluid was localized with ultrasound and the overlying skin was prepped and draped. Ultrasound was utilized with sterile technique. Lidocaine was used for local anesthesia and a skin rebecca made with a scalpel. Catheter was advanced under direct ultrasound guidance into a suitable pocket of fluid and approximately 5.3 liter s of serous fluid were removed. Catheter was withdrawn and hemostasis achieved. There is no immedia te complication; the patient is discharged in stable condition. IMPRESSION: STATUS POST ULTRASOUND GUIDED PARACENTESIS FOR PALLIATION OF ASCITES. THIS PROCEDURE WA S PERFORMED BY THE UNDERSIGNED.
[2021-10-01 16:08] VITALS: BP 112/60; PULSE 86; RESP 14
== END 2021-10-01 15:40 | disposition home or self-care (01) ==
LOC: RADPROMAIN 13:00
PROVIDERS: ATTEND Internal Medicine
DX: R18.8 Other ascites (principal); K74.3 Primary biliary cirrhosis
CPT/HCPCS: 82565; 82947; 85049; 85610; 36415; 49083; P9047

== ENCOUNTER 2021-10-09 08:19 | Day surgery (SDC) | payer OTHER ==
[2021-10-09 08:44] LABS: Mean Platelet Volume 9.5; Platelet Count 118 k/uL (150-450)
[2021-10-09 08:51] VITALS: TEMP 97.8
[2021-10-09 08:51] LABS: INR 1.3 (<1.2); Prothrombin Time 13.2 sec (9.0-12.0)
[2021-10-09] MEDS: ALBUMIN HUMAN 25% 50 ML in EMPTY BAG 1 BAG IVPB SCH ×4 (09:37→10:21)
[2021-10-09 11:13] VITALS: BP 107/61; PULSE 79; RESP 16
--- NOTE | 2021-10-09 12:49 | US ---
EXAMINATION TYPE: US paracentesis abd w/image DATE OF EXAM: 10/09/2021 COMPARISON: NONE HISTORY: Ascites. PROCEDURE: Maximal barrier technique was utilized. The skin overlying a suitable pocket of fluid was localized with ultrasound and the overlying skin was prepped and draped. Ultrasound was utilized with sterile technique. Lidocaine was used for local anesthesia and a skin rebecca made with a scalpel. Catheter was advanced under direct ultrasound guidance into a suitable pocket of fluid and approximately 5.1 liter s of serous fluid were removed. Catheter was withdrawn and hemostasis achieved. There is no immedia te complication; the patient is discharged in stable condition. IMPRESSION: STATUS POST ULTRASOUND GUIDED PARACENTESIS FOR PALLIATION OF ASCITES. THIS PROCEDURE WA S PERFORMED BY THE UNDERSIGNED.
== END 2021-10-09 11:00 | disposition home or self-care (01) ==
LOC: RADPROMAIN 08:19
PROVIDERS: ATTEND Internal Medicine
DX: R18.8 Other ascites (principal); K74.3 Primary biliary cirrhosis
CPT/HCPCS: 82565; 82947; 85049; 85610; 36415; 49083; P9047

== ENCOUNTER 2021-10-16 11:57 | Day surgery (SDC) | payer OTHER ==
[2021-10-16 12:58] LABS: Mean Platelet Volume 10.1; Platelet Count 100 k/uL (150-450)
[2021-10-16 13:09] VITALS: RESP 16; TEMP 98.1
[2021-10-16 13:12] LABS: INR 1.2 (<1.2)
[2021-10-16] MEDS: ALBUMIN HUMAN 25% 50 ML in EMPTY BAG 1 BAG IVPB SCH ×4 (13:19→14:11)
[2021-10-16 14:22] VITALS: PULSE 73
[2021-10-16 14:34] VITALS: BP 96/63
--- NOTE | 2021-10-16 14:37 | US ---
Ultrasound-guided paracentesis. DATE OF EXAM: 10/16/2021 CLINICAL HISTORY: Ascites The procedure was discussed with the patient. The risks, complications, benefits, and alternatives we re discussed and any questions were answered. Informed consent was obtained. The patient was placed s upine on the ultrasound table and prepped and draped in the usual sterile fashion. All elements of maximal barrier technique were utilized. Under ultrasound guidance, access into the right lower quadrant was obtained, via the paracentesis catheter system and direct ultrasound guidanc e. Approximately 4.9 liters of straw-colored fluid was removed. The patient was stable throughout the pr ocedure and remained stable upon discharge from Department of Radiology. IMPRESSION: Successful paracentesis under ultrasound guidance.
== END 2021-10-16 14:46 | disposition home or self-care (01) ==
LOC: RADPROMAIN 11:57
PROVIDERS: ATTEND Internal Medicine
DX: R18.8 Other ascites (principal); K74.5 Biliary cirrhosis, unspecified
CPT/HCPCS: 82565; 82947; 85049; 85610; 36415; 49083; P9047

== ENCOUNTER → 2021-10-16 | Outpatient (CLI) | payer OTHER ==
--- NOTE | 2021-10-16 13:27 | US ---
EXAMINATION TYPE: US retroperitoneal limited DATE OF EXAM: 10/16/2021 COMPARISON: CT 08/13/21 CLINICAL HISTORY: N20.0 kidney stone. EXAM MEASUREMENTS: Right Kidney: 10.5 x 5.8 x 5.5 cm Left Kidney: 11.6 x 5.2 x 5.0 cm Post Void Residual Volume: 42.5 mL Right Kidney: 1cm lower pole echogenic foci with shadowing Left Kidney: No hydronephrosis or masses seen Bladder: wnl Bilateral Jets seen: No Normal Post Void Residual: Yes There is no evidence for hydronephrosis at this point in time. No masses are identified. The urinar y bladder is anechoic. Bilateral ureteral jets are seen. Enlarged spleen noted = 17.5 cm with ? accessory spleen = 1.7 cm IMPRESSION: 1. Nonobstructing right-sided nephrolithiasis. 2. Splenomegaly. Ascites. IMPRESSION:
== END | disposition home or self-care (01) ==
LOC: RADUSWWP 11:55
PROVIDERS: ATTEND Urology
DX: N20.0 Calculus of kidney (principal); R16.1 Splenomegaly, not elsewhere classified; R18.8 Other ascites
CPT/HCPCS: 76775

== ENCOUNTER 2021-10-23 07:53 | Day surgery (SDC) | payer OTHER ==
[2021-10-23 08:38] LABS: Mean Platelet Volume 9.7
[2021-10-23 08:46] VITALS: RESP 16; TEMP 98.4
[2021-10-23 09:03] LABS: INR 1.3 (<1.2); Prothrombin Time 13.2 sec (9.0-12.0)
[2021-10-23] MEDS: ALBUMIN HUMAN 25% 50 ML in EMPTY BAG 1 BAG IVPB SCH ×4 (09:08→10:01)
[2021-10-23 09:47] VITALS: PULSE 81
[2021-10-23 10:04] LABS: Platelet Count 96 k/uL (150-450)
[2021-10-23 10:14] VITALS: BP 101/65
--- NOTE | 2021-10-23 12:05 | US ---
Ultrasound-guided paracentesis. DATE OF EXAM: 10/23/2021 CLINICAL HISTORY: Ascites The procedure was discussed with the patient. The risks, complications, benefits, and alternatives we re discussed and any questions were answered. Informed consent was obtained. The patient was placed s upine on the ultrasound table and prepped and draped in the usual sterile fashion. All elements of maximal barrier technique were utilized. Under ultrasound guidance, access into the right lower quadrant was obtained, via the paracentesis catheter system and direct ultrasound guidanc e. Approximately 6.1 liters of straw-colored fluid was removed. The patient was stable throughout the pr ocedure and remained stable upon discharge from Department of Radiology. IMPRESSION: Successful paracentesis under ultrasound guidance.
== END 2021-10-23 10:28 | disposition home or self-care (01) ==
LOC: RADPROMAIN 07:53
PROVIDERS: ATTEND Internal Medicine
DX: R18.8 Other ascites (principal); K74.3 Primary biliary cirrhosis
CPT/HCPCS: 82565; 82947; 85049; 85610; 36415; 49083; P9047

== ENCOUNTER 2021-10-30 12:25 | Day surgery (SDC) | payer OTHER ==
[2021-10-30 12:37] VITALS: RESP 16; TEMP 97.9
[2021-10-30 12:54] LABS: Mean Platelet Volume 9.2; Platelet Count 116 k/uL (150-450)
[2021-10-30 13:04] LABS: INR 1.2 (<1.2); Prothrombin Time 12.4 sec (9.0-12.0)
[2021-10-30] MEDS: ALBUMIN HUMAN 25% 50 ML in EMPTY BAG 1 BAG IVPB SCH ×4 (13:44→14:29)
[2021-10-30 14:48] VITALS: BP 114/59; PULSE 87
--- NOTE | 2021-10-30 15:20 | US ---
EXAMINATION TYPE: US paracentesis abd w/image DATE OF EXAM: 10/30/2021 COMPARISON: NONE HISTORY: Ascites. PROCEDURE: Maximal barrier technique was utilized. The skin overlying a suitable pocket of fluid was localized with ultrasound and the overlying skin was prepped and draped. Ultrasound was utilized with sterile technique. Lidocaine was used for local anesthesia and a skin rebecca made with a scalpel. Catheter was advanced under direct ultrasound guidance into a suitable pocket of fluid and approximately 5.9 liter s of serous fluid were removed. Catheter was withdrawn and hemostasis achieved. There is no immedia te complication; the patient is discharged in stable condition. IMPRESSION: STATUS POST ULTRASOUND GUIDED PARACENTESIS FOR PALLIATION OF ASCITES. THIS PROCEDURE WA S PERFORMED BY THE UNDERSIGNED.
== END 2021-10-30 15:00 | disposition home or self-care (01) ==
LOC: RADPROMAIN 12:25
PROVIDERS: ATTEND Internal Medicine
DX: K74.3 Primary biliary cirrhosis (principal); R18.8 Other ascites
CPT/HCPCS: 82565; 82947; 85049; 85610; 49083; P9047

== ENCOUNTER 2021-11-13 12:27 | Day surgery (SDC) | payer OTHER ==
[2021-11-13 13:02] VITALS: RESP 16; TEMP 97.9
[2021-11-13 13:12] LABS: Mean Platelet Volume 9.9; Platelet Count 101 k/uL (150-450)
[2021-11-13 13:13] LABS: INR 1.3 (<1.2); Prothrombin Time 13.5 sec (9.0-12.0)
[2021-11-13] MEDS: ALBUMIN HUMAN 25% 50 ML in EMPTY BAG 1 BAG IVPB SCH ×4 (13:23→14:21)
[2021-11-13 15:17] VITALS: BP 101/61; PULSE 75
--- NOTE | 2021-11-13 15:43 | US ---
Ultrasound-guided paracentesis. DATE OF EXAM: 11/13/2021 CLINICAL HISTORY: Ascites The procedure was discussed with the patient. The risks, complications, benefits, and alternatives we re discussed and any questions were answered. Informed consent was obtained. The patient was placed s upine on the ultrasound table and prepped and draped in the usual sterile fashion. All elements of maximal barrier technique were utilized. Under ultrasound guidance, access into the right lower quadrant was obtained, via the paracentesis catheter system and direct ultrasound guidanc e. Approximately 4.9 liters of straw-colored fluid was removed. The patient was stable throughout the pr ocedure and remained stable upon discharge from Department of Radiology. IMPRESSION: Successful paracentesis under ultrasound guidance.
== END 2021-11-13 15:09 | disposition home or self-care (01) ==
LOC: RADPROMAIN 12:27 → EDSTATUS 12:30 → RADPROMAIN 15:09
PROVIDERS: ATTEND Urology
DX: K74.3 Primary biliary cirrhosis (principal); R18.8 Other ascites
CPT/HCPCS: 82565; 82947; 85049; 85610; 36415; 49083; P9047

== ENCOUNTER 2021-11-20 12:28 | Day surgery (SDC) | payer OTHER ==
[2021-11-20 13:21] VITALS: TEMP 97.3
[2021-11-20 13:34] LABS: INR 1.3 (<1.2)
[2021-11-20 13:35] LABS: Prothrombin Time 13.5 sec (9.0-12.0)
[2021-11-20 13:36] LABS: Mean Platelet Volume 10.3
[2021-11-20 13:54] LABS: Platelet Count 96 k/uL (150-450)
[2021-11-20] MEDS: ALBUMIN HUMAN 25% 50 ML in EMPTY BAG 1 BAG IVPB SCH ×4 (14:09→14:52)
[2021-11-20 15:25] VITALS: RESP 14
[2021-11-20 15:26] VITALS: BP 112/69; PULSE 72
--- NOTE | 2021-11-20 15:38 | US ---
Ultrasound-guided paracentesis. DATE OF EXAM: 11/20/2021 CLINICAL HISTORY: Ascites The procedure was discussed with the patient. The risks, complications, benefits, and alternatives we re discussed and any questions were answered. Informed consent was obtained. The patient was placed s upine on the ultrasound table and prepped and draped in the usual sterile fashion. All elements of maximal barrier technique were utilized. Under ultrasound guidance, access into the right lower quadrant was obtained, via the paracentesis catheter system and direct ultrasound guidanc e. Approximately 5.3 liters of straw-colored fluid was removed. The patient was stable throughout the pr ocedure and remained stable upon discharge from Department of Radiology. IMPRESSION: Successful paracentesis under ultrasound guidance.
== END 2021-11-20 15:24 | disposition home or self-care (01) ==
LOC: RADPROMAIN 12:28
PROVIDERS: ATTEND Internal Medicine
DX: K74.3 Primary biliary cirrhosis (principal); R18.8 Other ascites
CPT/HCPCS: 82565; 82947; 85049; 85610; 36415; 49083; P9047

== ENCOUNTER 2021-12-18 12:55 | Day surgery (SDC) | payer OTHER ==
[2021-12-18 13:23] VITALS: RESP 16; TEMP 97.8
[2021-12-18 13:37] LABS: INR 1.3 (<1.2); Prothrombin Time 13.6 sec (9.0-12.0)
[2021-12-18] MEDS: ALBUMIN HUMAN 25% 50 ML in EMPTY BAG 1 BAG IVPB SCH ×4 (13:38→14:43)
[2021-12-18 13:44] LABS: Mean Platelet Volume 9.4; Platelet Count 110 k/uL (150-450)
[2021-12-18 15:59] VITALS: BP 103/65; PULSE 86
--- NOTE | 2021-12-18 16:02 | US ---
EXAMINATION TYPE: US paracentesis abd w/image DATE OF EXAM: 12/18/2021 COMPARISON: NONE HISTORY: Ascites. PROCEDURE: Maximal barrier technique was utilized. The skin overlying a suitable pocket of fluid was localized with ultrasound and the overlying skin was prepped and draped. Ultrasound was utilized with sterile technique. Lidocaine was used for local anesthesia and a skin rebecca made with a scalpel. Catheter was advanced under direct ultrasound guidance into a suitable pocket of fluid and approximately 8 liters of serous fluid were removed. Catheter was withdrawn and hemostasis achieved. There is no immediate complication; the patient is discharged in stable condition. IMPRESSION: STATUS POST ULTRASOUND GUIDED PARACENTESIS FOR PALLIATION OF ASCITES. THIS PROCEDURE WA S PERFORMED BY THE UNDERSIGNED.
== END 2021-12-18 15:55 | disposition home or self-care (01) ==
LOC: RADPROMAIN 12:55
PROVIDERS: ATTEND Internal Medicine
DX: K74.3 Primary biliary cirrhosis (principal); R18.8 Other ascites
CPT/HCPCS: 82565; 82947; 85049; 85610; 36415; 49083; P9047

== ENCOUNTER 2021-12-25 12:16 | Day surgery (SDC) | payer OTHER ==
[2021-12-25 13:20] VITALS: TEMP 98.1
[2021-12-25 13:30] LABS: Mean Platelet Volume 9.9
[2021-12-25 13:35] LABS: Platelet Count 99 k/uL (150-450)
[2021-12-25 13:43] LABS: INR 1.2 (<1.2); Prothrombin Time 12.9 sec (9.0-12.0)
[2021-12-25] MEDS: ALBUMIN HUMAN 25% 50 ML in EMPTY BAG 1 BAG IVPB SCH ×4 (14:21→15:03)
[2021-12-25 15:16] VITALS: RESP 22
[2021-12-25 15:37] VITALS: BP 109/55; PULSE 81
--- NOTE | 2021-12-25 15:59 | US ---
EXAMINATION TYPE: US paracentesis abd w/image DATE OF EXAM: 12/25/2021 COMPARISON: NONE HISTORY: Ascites. PROCEDURE: Maximal barrier technique was utilized. The skin overlying a suitable pocket of fluid was localized with ultrasound and the overlying skin was prepped and draped. Ultrasound was utilized with sterile technique. Lidocaine was used for local anesthesia and a skin rebecca made with a scalpel. Catheter was advanced under direct ultrasound guidance into a suitable pocket of fluid and approximately 6.6 liter s of serous fluid were removed. Catheter was withdrawn and hemostasis achieved. There is no immedia te complication; the patient is discharged in stable condition. IMPRESSION: STATUS POST ULTRASOUND GUIDED PARACENTESIS FOR PALLIATION OF ASCITES. THIS PROCEDURE WA S PERFORMED BY THE UNDERSIGNED.
== END 2021-12-25 15:40 | disposition home or self-care (01) ==
LOC: RADPROMAIN 12:16
PROVIDERS: ATTEND Internal Medicine
DX: K74.3 Primary biliary cirrhosis (principal); R18.8 Other ascites
CPT/HCPCS: 82565; 82947; 85049; 85610; 36415; 49083; P9047

== ENCOUNTER 2022-01-01 12:28 | Day surgery (SDC) | payer OTHER ==
[2022-01-01 12:54] LABS: Mean Platelet Volume 9.2; Platelet Count 126 k/uL (150-450)
[2022-01-01 12:56] VITALS: RESP 16; TEMP 97.7
[2022-01-01 13:01] LABS: INR 1.2 (<1.2); Prothrombin Time 12.5 sec (9.0-12.0)
[2022-01-01] MEDS: ALBUMIN HUMAN 25% 50 ML in EMPTY BAG 1 BAG IVPB SCH ×4 (14:00→14:45)
[2022-01-01 15:09] VITALS: BP 112/59; PULSE 83
--- NOTE | 2022-01-01 15:12 | US ---
Ultrasound-guided paracentesis. DATE OF EXAM: 01/01/2022 CLINICAL HISTORY: Ascites The procedure was discussed with the patient. The risks, complications, benefits, and alternatives we re discussed and any questions were answered. Informed consent was obtained. The patient was placed s upine on the ultrasound table and prepped and draped in the usual sterile fashion. All elements of maximal barrier technique were utilized. Under ultrasound guidance, access into the right lower quadrant was obtained, via the paracentesis catheter system and direct ultrasound guidanc e. Approximately 6.1 liters of straw-colored fluid was removed. The patient was stable throughout the pr ocedure and remained stable upon discharge from Department of Radiology. IMPRESSION: Successful paracentesis under ultrasound guidance.
== END 2022-01-01 15:20 | disposition home or self-care (01) ==
LOC: RADPROMAIN 12:28
PROVIDERS: ATTEND Internal Medicine
DX: K74.3 Primary biliary cirrhosis (principal); R18.8 Other ascites
CPT/HCPCS: 82565; 82947; 85049; 85610; 36415; 49083; P9047

== ENCOUNTER 2022-01-08 12:30 | Day surgery (SDC) | payer OTHER ==
[2022-01-08 13:02] LABS: Mean Platelet Volume 9.7; Platelet Count 109 k/uL (150-450)
[2022-01-08 13:05] LABS: INR 1.2 (<1.2); Prothrombin Time 12.7 sec (9.0-12.0)
[2022-01-08 13:12] VITALS: RESP 16; TEMP 98.7
[2022-01-08] MEDS: ALBUMIN HUMAN 25% 50 ML in EMPTY BAG 1 BAG IVPB SCH ×4 (13:14→14:14)
[2022-01-08] MEDS ORDERED: LIDOCAINE 1% INJ 10MG/ML (5 ML VIAL-PF) SQ ONE (13:21)
[2022-01-08 14:20] VITALS: BP 115/64; PULSE 70
--- NOTE | 2022-01-08 15:58 | US ---
Ultrasound-guided paracentesis. DATE OF EXAM: 01/08/2022 CLINICAL HISTORY: Ascites The procedure was discussed with the patient. The risks, complications, benefits, and alternatives we re discussed and any questions were answered. Informed consent was obtained. The patient was placed s upine on the ultrasound table and prepped and draped in the usual sterile fashion. All elements of maximal barrier technique were utilized. Under ultrasound guidance, access into the right lower quadrant was obtained, via the paracentesis catheter system and direct ultrasound guidanc e. Approximately 3.7 liters of straw-colored fluid was removed. The patient was stable throughout the pr ocedure and remained stable upon discharge from Department of Radiology. IMPRESSION: Successful paracentesis under ultrasound guidance.
== END 2022-01-08 14:42 | disposition home or self-care (01) ==
LOC: RADPROMAIN 12:30
PROVIDERS: ATTEND Internal Medicine
DX: R18.8 Other ascites (principal); K74.3 Primary biliary cirrhosis
CPT/HCPCS: 82565; 82947; 85049; 85610; 36415; 49083; J2001; P9047

== ENCOUNTER 2022-01-15 12:24 | Day surgery (SDC) | payer OTHER ==
[2022-01-15 13:05] LABS: Mean Platelet Volume 9.9
[2022-01-15 13:16] LABS: Platelet Count 99 k/uL (150-450)
[2022-01-15 13:25] VITALS: TEMP 98.4
[2022-01-15 13:32] LABS: INR 1.2 (<1.2); Prothrombin Time 12.8 sec (9.0-12.0)
[2022-01-15] MEDS: ALBUMIN HUMAN 25% 50 ML in EMPTY BAG 1 BAG IVPB SCH ×4 (14:00→14:54)
[2022-01-15 15:01] VITALS: RESP 16
[2022-01-15 15:12] VITALS: BP 99/64; PULSE 72
--- NOTE | 2022-01-16 08:47 | US ---
Ultrasound-guided paracentesis. DATE OF EXAM: 01/15/2022 CLINICAL HISTORY: Ascites The procedure was discussed with the patient. The risks, complications, benefits, and alternatives we re discussed and any questions were answered. Informed consent was obtained. The patient was placed s upine on the ultrasound table and prepped and draped in the usual sterile fashion. All elements of maximal barrier technique were utilized. Under ultrasound guidance, access into the right lower quadrant was obtained, via the paracentesis catheter system and direct ultrasound guidanc e. Approximately 5.8 liters of straw-colored fluid was removed. The patient was stable throughout the pr ocedure and remained stable upon discharge from Department of Radiology. IMPRESSION: Successful paracentesis under ultrasound guidance.
== END 2022-01-15 15:30 | disposition home or self-care (01) ==
LOC: RADPROMAIN 12:24
PROVIDERS: ATTEND Internal Medicine
DX: R18.8 Other ascites (principal)
CPT/HCPCS: 49083; 82565; 82947; 85049; 85610; 36415; P9047

== ENCOUNTER → 2022-01-22 | Day surgery (SDC) | payer OTHER ==
[~2022-01-22] MED LIST: LIDOCAINE 1% PF 10 MG/ML (5 ML AMP) SQ ONE
[2022-01-22 13:26] VITALS: TEMP 97.7
[2022-01-22 13:28] LABS: Platelet Count 104 k/uL (150-450)
[2022-01-22 13:36] LABS: INR 1.2 (<1.2); Prothrombin Time 13.1 sec (9.0-12.0)
[2022-01-22] MEDS: ALBUMIN HUMAN 25% 50 ML in EMPTY BAG 1 BAG IVPB SCH ×4 (14:04→14:58)
[2022-01-22 15:34] VITALS: BP 110/58; PULSE 80; RESP 20
--- NOTE | 2022-01-22 16:51 | US ---
EXAMINATION TYPE: US paracentesis abd w/image DATE OF EXAM: 01/22/2022 COMPARISON: NONE HISTORY: Ascites. PROCEDURE: Maximal barrier technique was utilized. The skin overlying a suitable pocket of fluid was localized with ultrasound and the overlying skin was prepped and draped. Ultrasound was utilized with sterile technique. Lidocaine was used for local anesthesia and a skin rebecca made with a scalpel. Catheter was advanced under direct ultrasound guidance into a suitable pocket of fluid and approximately 4.8 liter s of serous fluid were removed. Catheter was withdrawn and hemostasis achieved. There is no immedia te complication; the patient is discharged in stable condition. IMPRESSION: STATUS POST ULTRASOUND GUIDED PARACENTESIS FOR PALLIATION OF ASCITES. THIS PROCEDURE WA S PERFORMED BY THE UNDERSIGNED.
== END ==
LOC: RADPROMAIN 12:27
PROVIDERS: ATTEND Internal Medicine
DX: R18.8 Other ascites (principal)
CPT/HCPCS: 49083; 82565; 82947; 85049; 85610; 36415; J2001; P9047

== ENCOUNTER 2022-02-03 06:01 | Inpatient (IN) | payer OTHER ==
[2022-02-03] MEDS ORDERED: HYDROmorphone 0.5 MG/0.5 ML SYRINGE IVP STA (06:48)
[2022-02-03] MEDS ORDERED: PANTOPRAZOLE 40 MG/10 ML VIAL IVP STA (06:48)
[2022-02-03] MEDS ORDERED: ONDANSETRON 4 MG/2 ML VIAL IVP STA (06:48)
[2022-02-03 06:54] LABS: Calcium 8.6 mg/dL (8.4-10.2); Potassium 4.8 mmol/L (3.5-5.1); Total Bilirubin 3.3 mg/dL (0.2-1.3); Total Protein 6.5 g/dL (6.3-8.2)
--- NOTE | 2022-02-03 07:31 | ED ---
Abdominal Pain HPI - General Chief Complaint: Abdominal Pain Stated Complaint: Abdominal Pain, Diarrhea, Recent liver surgery Time Seen by Provider: 02/03/22 06:13 Source: patient, RN notes reviewed Mode of arrival: wheelchair Limitations: no limitations - History of Present Illness Initial Comments: This a 61-year-old female presents emergency Department with chief complaint of upper abdominal pain. Patient states started last few days she states that it feels very sharp, burning in nature she does have a history of GERD, ulcers states that she's been taking medications had no like symptoms. Patient does admit that she's been having increasing diarrhea. Patient has known liver disease in which she gets weekly paracentesis. 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 Patient denies any fevers or chills denies chest pain shortness of breath no dysuria no hematuria - Related Data Home Medications Medication Instructions Recorded Confirmed Atorvastatin [Lipitor] 10 mg PO DAILY 04/08/21 01/22/22 Cholecalciferol [Vitamin D3 (25 50 mcg PO DAILY 04/08/21 01/22/22 Mcg = 1000 Iu)] Dapagliflozin Propanediol [Farxiga] 10 mg PO DAILY 04/08/21 01/22/22 Levothyroxine Sodium [Synthroid] 175 mcg PO [id number] 04/08/21 01/22/22 Multivitamin/Iron/Folic Acid 1 tab PO DAILY 04/08/21 01/22/22 [Centrum Women Tablet] Secukinumab [Cosentyx Pen] 150 mg SQ Q28D 04/08/21 01/22/22 ursodioL [Ursodiol] 500 mg PO TID 04/08/21 01/22/22 Aspirin EC [Ecotrin Low Dose] 81 mg PO DAILY 09/15/21 01/22/22 Calcium Carbonate [Calcium] 1,200 mg PO DAILY 09/15/21 01/22/22 Pantoprazole [Protonix] 40 mg PO BID 09/15/21 01/22/22 Furosemide [Lasix] 20 mg PO DAILY 10/01/21 01/22/22 Spironolactone 50 mg PO DAILY 12/11/21 01/22/22 Previous Rx's Medication Instructions Recorded Lactulose [Cephulac] 10 gm PO TID #0 09/17/21 Allergies Allergy/AdvReac Type Severity Reaction Status Date / Time No Known Allergies Allergy Verified 02/03/22 06:11 Review of Systems ROS Statement: Those systems with pertinent positive or pertinent negative responses have been documented in the HPI. ROS Other: All systems not noted in ROS Statement are negative. Past Medical History Past Medical History: Diabetes Mellitus, Hypertension Additional Past Medical History / Comment(s): brain lesions, genetic cirrhosis of the liver, DM II, Ascites, anasarca History of Any Multi-Drug Resistant Organisms: None Reported Additional Past Surgical History / Comment(s): liver banding, right wrist, paracentesis Past Anesthesia/Blood Transfusion Reactions: No Reported Reaction Past Psychological History: No Psychological Hx Reported Smoking Status: Never smoker Past Alcohol Use History: None Reported Past Drug Use History: None Reported General Exam Limitations: no limitations General appearance: alert, in no apparent distress Head exam: Present: atraumatic, normocephalic, normal inspection Eye exam: Present: normal appearance, PERRL, EOMI. Absent: scleral icterus, conjunctival injection, periorbital swelling ENT exam: Present: normal exam, mucous membranes moist Neck exam: Present: normal inspection, full ROM. Absent: tenderness, meningismus, lymphadenopathy Respiratory exam: Present: normal lung sounds bilaterally. Absent: respiratory distress, wheezes, rales, rhonchi, stridor Cardiovascular Exam: Present: regular rate, normal rhythm, normal heart sounds. Absent: systolic murmur, diastolic murmur, rubs, gallop, clicks GI/Abdominal exam: Present: soft, tenderness, normal bowel sounds. Absent: distended, guarding, rebound, rigid Back exam: Absent: CVA tenderness (R), CVA tenderness (L) Neurological exam: Present: alert Skin exam: Present: warm, dry, intact, normal color. Absent: rash Course Vital Signs 02/03/22 06:03 Temperature 98.1 F Pulse Rate 107 H Respiratory 20 Rate Blood Pressure 126/70 O2 Sat by Pulse 98 Oximetry Medical Decision Making - Medical Decision Making 7-year-old presented for abdominal pain. Patient's lipase is elevated to almost the 100. Patient CT does show cirrhotic liver which is known possible enteritis changes an 80% thrombus of portal vein she does not have an occlusion. Patient symptoms consistent with pancreatitis will be admitted for IV fluid hydration, pain control - Lab Data Result diagrams: 02/03/22 06:19 06/06/22 06:19 Lab Results 02/03/22 02/03/22 02/03/22 Range/Units 06:19 06:19 06:19 WBC 9.9 (3.8-10.6) k/uL RBC 4.47 (3.80-5.40) m/uL Hgb 13.9 (11.4-16.0) gm/dL Hct 41.7 (34.0-46.0) % MCV 93.2 (80.0-100.0) fL MCH 31.0 (25.0-35.0) pg MCHC 33.2 (31.0-37.0) g/dL RDW 16.1 H (11.5-15.5) % Plt Count 157 D (150-450) k/uL MPV 8.6 Neutrophils % 85 % Lymphocytes % 4 % Monocytes % 8 % Eosinophils % 0 % Basophils % 0 % Neutrophils # 8.4 H (1.3-7.7) k/uL Lymphocytes # 0.4 L (1.0-4.8) k/uL Monocytes # 0.8 (0-1.0) k/uL Eosinophils # 0.0 (0-0.7) k/uL Basophils # 0.0 (0-0.2) k/uL Anisocytosis Slight Sodium 130 L (137-145) mmol/L Potassium 4.8 (3.5-5.1) mmol/L Chloride 98 (98-107) mmol/L Carbon Dioxide 24 (22-30) mmol/L Anion Gap 8 mmol/L BUN 19 H (7-17) mg/dL Creatinine 1.06 H (0.52-1.04) mg/dL Est GFR (CKD-EPI)AfAm 66 (>60 ml/min/1.73 sqM) Est GFR (CKD-EPI)NonAf 57 (>60 ml/min/1.73 sqM) Glucose 142 H (74-99) mg/dL Plasma Lactic Acid Babak 2.0 (0.7-2.0) mmol/L Calcium 8.6 (8.4-10.2) mg/dL Magnesium (1.6-2.3) mg/dL Total Bilirubin 3.3 H (0.2-1.3) mg/dL AST 37 H (14-36) U/L ALT 21 (4-34) U/L Alkaline Phosphatase 125 (38-126) U/L Total Protein 6.5 (6.3-8.2) g/dL Albumin 3.0 L (3.5-5.0) g/dL Amylase 90 (30-110) U/L Lipase 793 H (23-300) U/L 02/03/22 Range/Units 06:19 WBC (3.8-10.6) k/uL RBC (3.80-5.40) m/uL Hgb (11.4-16.0) gm/dL Hct (34.0-46.0) % MCV (80.0-100.0) fL MCH (25.0-35.0) pg MCHC (31.0-37.0) g/dL RDW (11.5-15.5) % Plt Count (150-450) k/uL MPV Neutrophils % % Lymphocytes % % Monocytes % % Eosinophils % % Basophils % % Neutrophils # (1.3-7.7) k/uL Lymphocytes # (1.0-4.8) k/uL Monocytes # (0-1.0) k/uL Eosinophils # (0-0.7) k/uL Basophils # (0-0.2) k/uL Anisocytosis Sodium (137-145) mmol/L Potassium (3.5-5.1) mmol/L Chloride (98-107) mmol/L Carbon Dioxide (22-30) mmol/L Anion Gap mmol/L BUN (7-17) mg/dL Creatinine (0.52-1.04) mg/dL Est GFR (CKD-EPI)AfAm (>60 ml/min/1.73 sqM) Est GFR (CKD-EPI)NonAf (>60 ml/min/1.73 sqM) Glucose (74-99) mg/dL Plasma Lactic Acid Babak (0.7-2.0) mmol/L Calcium (8.4-10.2) mg/dL Magnesium 2.0 (1.6-2.3) mg/dL Total Bilirubin (0.2-1.3) mg/dL AST (14-36) U/L ALT (4-34) U/L Alkaline Phosphatase (38-126) U/L Total Protein (6.3-8.2) g/dL Albumin (3.5-5.0) g/dL Amylase (30-110) U/L Lipase (23-300) U/L Disposition Clinical Impression: Pancreatitis Disposition: ADMITTED IP TO THIS HOSP Condition: Fair Referrals: Minoo Gonzales DO [Primary Care Provider] - 1-2 days Time of Disposition: 08:46
[2022-02-03 07:39] LABS: Anisocytosis Slight; Basophils % (A) 0 %; Eosinophils % (A) 0 %; HCT 41.7 % (34.0-46.0); HGB 13.9 gm/dL (11.4-16.0); Lymphocytes # (A) 0.4 k/uL (1.0-4.8); Lymphocytes % (A) 4 %; MCHC 33.2 g/dL (31.0-37.0); MCV 93.2 fL (80.0-100.0); Mean Platelet Volume 8.6; Monocytes # (A) 0.8 k/uL (0-1.0); Monocytes % (A) 8 %; Neutrophils # (A) 8.4 k/uL (1.3-7.7); Neutrophils % (A) 85 %; RBC 4.47 m/uL (3.80-5.40); RDW 16.1 % (11.5-15.5); WBC 9.9 k/uL (3.8-10.6)
[2022-02-03 07:40] LABS: Platelet Count 157 k/uL (150-450)
--- NOTE | 2022-02-03 07:52 | CT ---
EXAMINATION TYPE: CT abdomen pelvis w con DATE OF EXAM: 02/03/2022 COMPARISON: 08/13/2021 HISTORY: 61 year-old female epigastric pain, diarrhea, nausea, loss of appetite, known cirrhosis of t he liver TECHNIQUE: Contiguous axial scanning of the abdomen and pelvis following administration of 80 ml Isov ue 300 IV contrast. Delayed images through the kidneys and coronal/sagittal reconstructions performe d. CT DLP: 2494.4 mGycm Automated exposure control for dose reduction was used. FINDINGS: Heart normal size without pericardial effusion. Moderate to large left pleural effusion with adjacent atelectasis. Mild varices at the distal esophagus and gastroesophageal junction. Nodular, shrunken, cirrhotic morphology of the liver. No definite focal lesion identified. There are new findings of thrombus within the main portal vein narrowing the luminal diameter by appr oximately 80%. Gallbladder surgically absent. Bile duct measures 1.1 cm, probably chronic for the patient. No distal obstructing lesion is seen. Adrenal glands and pancreas show no gross abnormality. A few punctate nonobstructive 2 to 3 mm left r enal calculi. Larger 1 cm nonobstructing right renal calculus. Spleen enlarged at 17.4 cm, unchanged. No dilated small bowel. No free air. There is persistent moderate abdominal pelvic ascites. Some scattered, probably reactive mesenteric lymph nodes measuring up to 7 mm. Some fluid within distal ileal loops. Fluid scattered throughout the colon. Mild circumferential wall thickening suggested along the ascending and transverse colon. Mild stool left side of the colon. Moderate to large pelvic ascites. Bladder is collapsed. Uterus anteverted. Pelvic floor relaxation. N o pelvic lymphadenopathy seen. Underlying anasarca change with a edema throughout the mid to lower abdominal and pelvic subcutaneous adipose layers. Hypertrophic facet arthropathy mid to lower lumbar spine. IMPRESSION: 1. REDEMONSTRATED CIRRHOSIS WITH EVIDENCE OF PORTAL VENOUS HYPERTENSION (SPLENOMEGALY AT 17.4 CM AND MODERATE ABDOMINOPELVIC ASCITES. A FEW SMALL VARICES AT THE GE JUNCTION AND DISTAL ESOPHAGUS.). 2. NEW MODERATE TO LARGE LEFT PLEURAL EFFUSION WITH ADJACENT ATELECTASIS. 3. ALSO SIGNIFICANT, NEW THROMBUS WITHIN THE MAIN PORTAL VEIN CONTRIBUTING TO 80% NARROWING. 4. SOME FLUID WITHIN THE DISTAL ILEUM AND SCATTERED THROUGHOUT THE COLON. CORRELATE TO EXCLUDE MILD N ONSPECIFIC ENTERITIS. 5. SOME CORRESPONDING WALL THICKENING ALONG THE RIGHT SIDE OF THE COLON COULD BE SECONDARY TO HYPOALB UMINEMIA OR A MILD COLITIS.
[2022-02-03 08:32] LABS: Appearance,Urine Clear (Clear); Bilirubin,Urine 1+ (Negative); Blood,Urine Negative (Negative); Color,Urine Yellow; Glucose,Urine (UA) 4+ (Negative); Ketones,Urine Negative (Negative); Leukocyte Esterase,Urine Negative (Negative); Nitrite,Urine Negative (Negative); Protein,Urine Trace (Negative); Urobilinogen,Urine <2.0 mg/dL (<2.0)
[2022-02-03] MEDS ORDERED: NALOXONE 0.4 MG/ML 1 ML VIAL IV PRN ×2 (08:47→09:18)
[2022-02-03] MEDS ORDERED: ONDANSETRON 4 MG/2 ML VIAL IVP PRN (08:47)
[2022-02-03 08:52] LABS: Specific Gravity,Urine >1.050 (1.001-1.035)
[2022-02-03] MEDS ORDERED: ACETAMINOPHEN TAB 325 MG TAB PO PRN (09:18)
[2022-02-03] MEDS ORDERED: HYDROmorphone 0.5 MG/0.5 ML SYRINGE IVP PRN (09:18)
[2022-02-03] MEDS ORDERED: MELATONIN 3 MG TABLET PO PRN (09:18)
[2022-02-03] MEDS: ATORVASTATIN 10 MG TAB PO SCH (09:52)
[2022-02-03] MEDS: FUROSEMIDE 20 MG TAB PO SCH (09:52)
[2022-02-03] MEDS: SPIRONOLACTONE 25 MG TAB PO SCH (09:52)
[2022-02-03] MEDS: LEVOTHYROXINE 88 MCG TAB PO SCH (09:52)
[2022-02-03] MEDS: LACTULOSE 20 GM/30 ML CUP PO SCH ×3 (09:53→20:51)
[2022-02-03] MEDS: SODIUM CHLORIDE 0.9% 1,000 ML IV SCH ×2 (09:54→23:36)
[2022-02-03] MEDS: HYDROmorphone 0.5 MG/0.5 ML SYRINGE IVP PRN ×2 (12:09→19:56)
--- NOTE | 2022-02-03 14:30 | P.CONS ---
History of Present Illness - Reason for Consult Consult date: 02/03/22 Pancreatitis Requesting physician: Satish Portillo - Chief Complaint Abdominal pain - History of Present Illness This is 61-year-old female with a history of primary biliary cirrhosis who is currently under the care of Dr. Anderson and Dr. Jorgensen from [facility] liver transplant team. Patient gets paracentesis weekly, however last week she was unable to undergo her scheduled paracentesis due to positive COVID-19 test. Her last paracentesis was 01/22/2022 4.8 L removed. States over the last couple weeks duration she's had increased diarrhea, and abdominal pain. However since Thursday abdominal pain has worsened. She denies any nausea or vomiting. She does take Xifaxan and lactulose. States that normally she takes lactulose once to twice a day. Normal bowel movements are 4-5 a day she is up to 7 a day. States a week ago or more she had some incontinence with her stool. Denies any blood in her stool. Last EGD/colonoscopy done by Dr. Anderson states she believes within the last couple years. No evidence of leukocytosis. No fevers, chills, she's been afebrile. States pain is severe. WBC 9.9 hemoglobin 13 hematocrit 41 platelet count 157,000 total bilirubin 3.3 AST 37 ALT 21 alkaline phosphatase 125 amylase 90 lipase [address] of the abdomen and pelvis that redemonstrated cirrhosis with evidence of portal venous hypertension, splenomegaly, with a new moderate to large left pleural effusion with adjacent atelectasis as well as a new thrombus within the main portal vein with about 80% narrowing. Fluid within distal ileum scattered throughout colon correlate to exclude mild nonspecific enteritis as well as wall thickening along the right side of the colon could be secondary to hypoalbuminemia or mild colitis. Review of Systems REVIEW OF SYSTEMS: CARDIOPULMONARY: No chest pain or shortness of breath. Gastrointestinal: Diffuse abdominal pain, greatest in the upper abdomen. No nausea or vomiting. No hematemesis, coffee-ground emesis. No rectal bleeding, or melena. Diarrhea. GENITOURINARY: No dysuria or hematuria. MUSCULOSKELETAL: Reports normal range of motion., Joint pain. SKIN: No rashes. No jaundice. ENDOCRINE: No chills, fevers. No excessive weight gain or loss. No polydipsia or polyuria. PSYCHIATRIC: Unremarkable. NEUROLOGY: No change in mental status. Denies dizziness, headache. ENT: Vision unremarkable. CONSTITUTIONAL: No recent weight loss. No fever, chills, night sweats. Past Medical History Past Medical History: Diabetes Mellitus, Hypertension Additional Past Medical History / Comment(s): brain lesions, genetic cirrhosis of the liver, DM II, Ascites, anasarca History of Any Multi-Drug Resistant Organisms: None Reported Additional Past Surgical History / Comment(s): liver banding, right wrist, paracentesis Past Anesthesia/Blood Transfusion Reactions: No Reported Reaction Past Psychological History: No Psychological Hx Reported Smoking Status: Never smoker Past Alcohol Use History: None Reported Past Drug Use History: None Reported Medications and Allergies Home Medications Medication Instructions Recorded Confirmed Type Atorvastatin [Lipitor] 10 mg PO DAILY 04/08/21 02/03/22 History Cholecalciferol [Vitamin D3 (25 50 mcg PO DAILY 04/08/21 02/03/22 History Mcg = 1000 Iu)] Dapagliflozin Propanediol [Farxiga] 10 mg PO DAILY 04/08/21 02/03/22 History Levothyroxine Sodium [Synthroid] 175 mcg PO DAILY 04/08/21 02/03/22 History Multivitamin/Iron/Folic Acid 1 tab PO DAILY 04/08/21 02/03/22 History [Centrum Women Tablet] Secukinumab [Cosentyx Pen] 300 mg SQ Q28D 04/08/21 02/03/22 History ursodioL [Ursodiol] 500 mg PO TID 04/08/21 02/03/22 History Aspirin EC [Ecotrin Low Dose] 81 mg PO DAILY 09/15/21 02/03/22 History Pantoprazole [Protonix] 40 mg PO BID 09/15/21 02/03/22 History Furosemide [Lasix] 20 mg PO DAILY 10/01/21 02/03/22 History Spironolactone 50 mg PO DAILY 12/11/21 02/03/22 History Folic Acid 1 mg PO BID 02/03/22 02/03/22 History Lactulose [Constulose] 13.33 gm PO DAILY 02/03/22 02/03/22 History Rifaximin [Xifaxan] 550 mg PO BID 02/03/22 02/03/22 History Allergies Allergy/AdvReac Type Severity Reaction Status Date / Time No Known Allergies Allergy Verified 02/03/22 09:31 Physical Exam Vitals: Vital Signs Temp Pulse Resp BP Pulse Ox 02/03/22 09:00 91 16 110/87 97 02/03/22 06:03 98.1 F 107 H 20 126/70 98 Intake and Output 02/02/22 02/03/22 02/03/22 22:59 06:59 14:59 Other: Weight 101.605 kg General appearance: The patient is alert, oriented, appears in no acute distress. HET: Head is normocephalic and atraumatic. Conjunctiva pink. Sclera anicteric. Neck: Supple without lymphadenopathy. Trachea midline. Heart: S1 S2. Regular rate and rhythm. Lungs: Clear to auscultation. Abdomen: Soft, diffuse abdominal tenderness, nondistended with bowel sounds. No guarding or rigidity. Skin: No rashes. No jaundice. Extremities: Normal skin color and turgor. No pedal edema. Neurological: No focal deficits. Alert and oriented x3. Results CBC & Chem 7: 02/03/22 06:19 02/03/22 06:19 Labs: Abnormal Lab Results - Last 24 Hours (Table) 02/03/22 02/03/22 02/03/22 Range/Units 06:19 06:19 08:18 RDW 16.1 H (11.5-15.5) % Neutrophils # 8.4 H (1.3-7.7) k/uL Lymphocytes # 0.4 L (1.0-4.8) k/uL Sodium 130 L (137-145) mmol/L BUN 19 H (7-17) mg/dL Creatinine 1.06 H (0.52-1.04) mg/dL Glucose 142 H (74-99) mg/dL Total Bilirubin 3.3 H (0.2-1.3) mg/dL AST 37 H (14-36) U/L Albumin 3.0 L (3.5-5.0) g/dL Lipase 793 H (23-300) U/L Ur Specific [place] >1.050 H (1.001-1.035) Urine Protein Trace H (Negative) Urine Glucose (UA) 4+ H (Negative) Urine Bilirubin 1+ H (Negative) Comments: CT of the abdomen and pelvis that redemonstrated cirrhosis with evidence of portal venous hypertension, splenomegaly, with a new moderate to large left pleural effusion with adjacent atelectasis as well as a new thrombus within the main portal vein with about 80% narrowing. Fluid within distal ileum scattered throughout colon correlate to exclude mild nonspecific enteritis as well as wall thickening along the right side of the colon could be secondary to hypoalbuminemia or mild colitis. Assessment and Plan (1) Abdominal pain Narrative/Plan: 61-year-old female with a history of primary biliary cirrhosis who follows with Dr. Anderson from [facility] as well as [facility] Dr. Cruz from the liver transplant team. Patient came in today with complaints of severe abdominal pain. States she's had increased diarrhea for approximately 2 weeks with abdominal pain that has become more severe in nature. Patient does undergo paracentesis weekly. Last paracentesis 01/22/2022. Unclear etiology of abdominal pain however is need to be suspicious for spontaneous bacterial peritonitis. Also possible etiologies is enteritis/colitis. Will start patient on Rocephin daily for possible SBP. Will schedule patient for paracentesis with fluid studies including fluid culture. Also need to consider possible pancreatitis, with mildly elevated lipase. Patient has no previous history of pancreatitis no new medications. Current Visit: Yes Status: Acute Code(s): R10.9 - UNSPECIFIED ABDOMINAL PAIN SNOMED Code(s): 52483416 (2) Decompensation of cirrhosis of liver Current Visit: No Status: Acute Code(s): K72.90 - HEPATIC FAILURE, UNSPECIFIED WITHOUT COMA; K74.60 - UNSPECIFIED CIRRHOSIS OF LIVER SNOMED Code(s): 438174965 Plan: 1. Continue symptomatic and supportive care 2. Continue pain management 3. Rocephin 1 g daily ordered for possible SBP 4. Continue current diuretics 5. Consult interventional radiology for paracentesis with fluid studies 6. Repeat CBC, CMP, lipase 7. Patient may have clear liquid diet Thank you for this consultation, we will continue to follow. Dr. Jana Ji I agree with the dictator's note, documented as a scribe by Bina Forman.
[2022-02-03] MEDS ORDERED: HEPARIN SODIUM,PORCINE/PF 5,000 UNIT/0.5 ML SYRINGE SQ SCH (16:00)
[2022-02-03 16:06] LABS: INR 1.4 (<1.2); Prothrombin Time 14.5 sec (9.0-12.0)
--- NOTE | 2022-02-03 19:52 | P.HPIM ---
History of Present Illness H&P Date: 02/03/22 Chief Complaint: Abdominal pain 61 years old female with history of cirrhosis due to primary biliary cirrhosis currently being treated and followed at [facility], she is also enrolled in their liver transplant list. She gets paracentesis on a weekly basis but last week she was unable to go for scheduled paracentesis due to positive COVID-19 test her last paracentesis was on 01/22/2022. Patient presented with the chief complaints of abdominal discomfort and diarrhea. Patient's computed tomography scan was done which showed cirrhosis evidence of portal hypertension and splenomegaly.Moderate to large left pleural effusion with adjacent atelectasis as well as new thrombus within the main portal vein with about 80% narrowing finding also consistent with nonspecific enteritis and colitis, patient was admitted to hospital medicine service Review of Systems 14 point review of system was done in detail and is negative except as above in HPI. Past Medical History Past Medical History: Diabetes Mellitus, Hypertension Additional Past Medical History / Comment(s): brain lesions, genetic cirrhosis of the liver, DM II, Ascites, anasarca History of Any Multi-Drug Resistant Organisms: None Reported Additional Past Surgical History / Comment(s): liver banding, right wrist, paracentesis Past Anesthesia/Blood Transfusion Reactions: No Reported Reaction Past Psychological History: No Psychological Hx Reported Smoking Status: Never smoker Past Alcohol Use History: None Reported Past Drug Use History: None Reported Medications and Allergies Home Medications Medication Instructions Recorded Confirmed Type Atorvastatin [Lipitor] 10 mg PO DAILY 04/08/21 02/03/22 History Cholecalciferol [Vitamin D3 (25 50 mcg PO DAILY 04/08/21 02/03/22 History Mcg = 1000 Iu)] Dapagliflozin Propanediol [Farxiga] 10 mg PO DAILY 04/08/21 02/03/22 History Levothyroxine Sodium [Synthroid] 175 mcg PO DAILY 04/08/21 02/03/22 History Multivitamin/Iron/Folic Acid 1 tab PO DAILY 04/08/21 02/03/22 History [Centrum Women Tablet] Secukinumab [Cosentyx Pen] 300 mg SQ Q28D 04/08/21 02/03/22 History ursodioL [Ursodiol] 500 mg PO TID 04/08/21 02/03/22 History Aspirin EC [Ecotrin Low Dose] 81 mg PO DAILY 09/15/21 02/03/22 History Pantoprazole [Protonix] 40 mg PO BID 09/15/21 02/03/22 History Furosemide [Lasix] 20 mg PO DAILY 10/01/21 02/03/22 History Spironolactone 50 mg PO DAILY 12/11/21 02/03/22 History Folic Acid 1 mg PO BID 02/03/22 02/03/22 History Lactulose [Constulose] 13.33 gm PO DAILY 02/03/22 02/03/22 History Rifaximin [Xifaxan] 550 mg PO BID 02/03/22 02/03/22 History Allergies Allergy/AdvReac Type Severity Reaction Status Date / Time No Known Allergies Allergy Verified 02/03/22 16:30 Physical Exam Vitals: Vital Signs Temp Pulse Resp BP Pulse Ox 02/03/22 09:00 91 16 110/87 97 02/03/22 06:03 98.1 F 107 H 20 126/70 98 Intake and Output 02/02/22 02/03/22 02/03/22 22:59 06:59 14:59 Other: Weight 101.605 kg General: non toxic, no acute distress, alert oriented to time place and person Head: atraumatic, normocephalic, symmetric Eyes: no lid lesion], anicteric sclera Mouth: no lip lesion, mucus membranes moist Cardiovascular: S1S2 reg rate and rhythm, no murmur, no gallop Lungs: Bilateral equal air entry, no wheezing no rhonchi no crackles. Abdominal: soft, tender to deep palpation Ext: no gross muscle atrophy, no edema extremities warm to suppose a positive Neuro: Alert oriented to time place and person, exam grossly nonfocal Psych: Mood and affect appropriate, patient not so certain Skin exam: No rashes no jaundice. Results CBC & Chem 7: 02/03/22 06:19 02/03/22 06:19 Labs: Abnormal Lab Results - Last 24 Hours (Table) 02/03/22 02/03/22 02/03/22 Range/Units 06:19 06:19 08:18 RDW 16.1 H (11.5-15.5) % Neutrophils # 8.4 H (1.3-7.7) k/uL Lymphocytes # 0.4 L (1.0-4.8) k/uL Sodium 130 L (137-145) mmol/L BUN 19 H (7-17) mg/dL Creatinine 1.06 H (0.52-1.04) mg/dL Glucose 142 H (74-99) mg/dL Total Bilirubin 3.3 H (0.2-1.3) mg/dL AST 37 H (14-36) U/L Albumin 3.0 L (3.5-5.0) g/dL Lipase 793 H (23-300) U/L Ur Specific [place] >1.050 H (1.001-1.035) Urine Protein Trace H (Negative) Urine Glucose (UA) 4+ H (Negative) Urine Bilirubin 1+ H (Negative) Assessment and Plan Assessment: Assessment and plan New diagnosis, Portal vein thrombosis Patient probably needs anticoagulation We'll request hematology evaluation Gastroenterology consulted Acute enteritis/colitis Cannot exclude infectious etiology Patient started on ceftriaxone Ascites Cannot exclude SBP Interventional radiology consult for paracentesis Continue empiric antibiotic, patient started on ceftriaxone Continue medical management, Lasix lactulose Diagnostic and therapeutic testing Abdominal pain Likely in the setting of above Continue medical management as above 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 Continue medical management Follow-up with Christiano Kaur Hypothyroidism Continue Synthyroid GERD Continue Protonix DVT prophylaxis: Heparin CODE STATUS: Full code Discharge plan/next site of care: Pending workup hospital course, likely back to home
[2022-02-03] MEDS: HEPARIN SOD,PORK IN 0.45% NACL 25,000 UNIT in 0.45% NACL 1 250ML.BAG IV SCH (23:45)
[2022-02-04] MEDS: LEVOTHYROXINE 88 MCG TAB PO SCH (05:52)
[2022-02-04] MEDS: PANTOPRAZOLE 40 MG/10 ML VIAL IV SCH (07:21)
[2022-02-04] MEDS: ATORVASTATIN 10 MG TAB PO SCH (07:21)
[2022-02-04] MEDS: SPIRONOLACTONE 25 MG TAB PO SCH ×3 (07:21→11:36)
[2022-02-04] MEDS: FUROSEMIDE 20 MG TAB PO SCH ×3 (07:21→11:36)
[2022-02-04] MEDS: LACTULOSE 20 GM/30 ML CUP PO SCH ×3 (07:22→20:34)
[2022-02-04 08:29] LABS: Basophils % (A) 0 %; Eosinophils # (A) 0.1 k/uL (0-0.7); Eosinophils % (A) 2 %; HGB 11.9 gm/dL (11.4-16.0); Hypochromasia Slight; Lymphocytes # (A) 0.3 k/uL (1.0-4.8); Lymphocytes % (A) 5 %; MCH 29.7 pg (25.0-35.0); MCHC 30.5 g/dL (31.0-37.0); MCV 97.4 fL (80.0-100.0); Monocytes # (A) 0.9 k/uL (0-1.0); Monocytes % (A) 15 %; Neutrophils # (A) 4.4 k/uL (1.3-7.7); Neutrophils % (A) 73 %; RBC 4.01 m/uL (3.80-5.40); RDW 15.4 % (11.5-15.5); WBC 6.1 k/uL (3.8-10.6)
[2022-02-04 08:52] LABS: INR 1.6 (<1.2); Partial Thromboplastin Time 94.7 sec (22.0-30.0); Prothrombin Time 15.9 sec (9.0-12.0)
[2022-02-04 10:29] LABS: Platelet Count 85 k/uL (150-450)
[2022-02-04] MEDS: SODIUM CHLORIDE 0.9% 1,000 ML IV SCH (10:49)
[2022-02-04 11:48] LABS: Magnesium 1.9 mg/dL (1.5-2.4); Phosphorus 3.4 mg/dL (2.4-5.1)
[2022-02-04 11:54] LABS: African American GFR (CKD) 55.2 (60.0-200.0); Albumin 2.6 g/dL (3.8-4.9); Albumin/Globulin Ratio 0.96 (1.60-3.17); Anion Gap 9.8 mmol/L (10.00-18.00); BUN/Creat Ratio 16.75 Ratio (12.00-20.00); Blood Urea Nitrogen 20.6 mg/dL (9.0-27.0); Calcium 8.4 mg/dL (8.7-10.3); Carbon Dioxide 18.5 mmol/L (20.0-27.5); Globulin 2.7 g/dL (1.6-3.3); Non-African American GFR(CKD) 47.6 (60.0-200.0); Total Bilirubin 2.5 mg/dL (0.30-1.20); Total Protein 5.4 g/dL (6.2-8.2)
--- NOTE | 2022-02-04 14:37 | P.PN ---
Subjective Progress Note Date: 02/04/22 Principal diagnosis: patient continues to complain of abdominal swelling and weakness 61 years old female with history of cirrhosis due to primary biliary cirrhosis currently being treated and followed at [facility], she is also enrolled in their liver transplant list. She gets paracentesis on a weekly basis but last week she was unable to go for scheduled paracentesis due to positive COVID-19 test her last paracentesis was on 01/22/2022. Patient present ed with the chief complaints of abdominal discomfort and diarrhea. Patient's computed tomography scan was done which showed cirrhosis evidence of portal hypertension and splenomegaly.Moderate to large left pleural effusion with adjacent atelectasis as well as new thrombus within the main portal vein with about 80% narrowing finding also consistent with nonspecific enteritis and colitis, patient was admitted to hospital medicine service Review of Systems 14 point review of system was done in detail and is negative except as above in HPI. Past Medical History Past Medical History: Diabetes Mellitus, Hypertension Additional Past Medical History / Comment(s): brain lesions, genetic cirrhosis of the liver, DM II, Ascites, anasarca History of Any Multi-Drug Resistant Organisms: None Reported Additional Past Surgical History / Comment(s): liver banding, right wrist, paracentesis Past Anesthesia/Blood Transfusion Reactions: No Reported Reaction Past Psychological History: No Psychological Hx Reported Smoking Status: Never smoker Past Alcohol Use History: None Reported Past Drug Use History: None Reported Medications and Allergies Home Medications Medication Instructions Recorded Confirmed Type Atorvastatin [Lipitor] 10 mg PO DAILY 04/08/21 02/03/22 History Cholecalciferol [Vitamin D3 (25 50 mcg PO DAILY 04/08/21 02/03/22 History Mcg = 1000 Iu)] Dapagliflozin Propanediol [Farxiga] 10 mg PO DAILY 04/08/21 02/03/22 History Levothyroxine Sodium [Synthroid] 175 mcg PO DAILY 04/08/21 02/03/22 History Multivitamin/Iron/Folic Acid 1 tab PO DAILY 04/08/21 02/03/22 History [Centrum Women Tablet] Secukinumab [Cosentyx Pen] 300 mg SQ Q28D 04/08/21 02/03/22 History ursodioL [Ursodiol] 500 mg PO TID 04/08/21 02/03/22 History Aspirin EC [Ecotrin Low Dose] 81 mg PO DAILY 09/15/21 02/03/22 History Pantoprazole [Protonix] 40 mg PO BID 09/15/21 02/03/22 History Furosemide [Lasix] 20 mg PO DAILY 10/01/21 02/03/22 History Spironolactone 50 mg PO DAILY 12/11/21 02/03/22 History Folic Acid 1 mg PO BID 02/03/22 02/03/22 History Lactulose [Constulose] 13.33 gm PO DAILY 02/03/22 02/03/22 History Rifaximin [Xifaxan] 550 mg PO BID 02/03/22 02/03/22 History Allergies Allergy/AdvReac Type Severity Reaction Status Date / Time No Known Allergies Allergy Verified 02/03/22 16:30 Physical Exam Vitals: Vital Signs Temp Pulse Resp BP Pulse Ox 02/03/22 09:00 91 16 110/87 97 02/03/22 06:03 98.1 F 107 H 20 126/70 98 Intake and Output 02/02/22 02/03/22 02/03/22 22:59 06:59 14:59 Other: Weight 101.605 kg General: non toxic, no acute distress, alert oriented to time place and person Head: atraumatic, normocephalic, symmetric Eyes: no lid lesion], anicteric sclera Mouth: no lip lesion, mucus membranes moist Cardiovascular: S1S2 reg rate and rhythm, no murmur, no gallop Lungs: Bilateral equal air entry, no wheezing no rhonchi no crackles. Abdominal: soft, tender to deep palpation Ext: no gross muscle atrophy, no edema extremities warm to suppose a positive Neuro: Alert oriented to time place and person, exam grossly nonfocal Psych: Mood and affect appropriate, patient not so certain Skin exam: No rashes no jaundice. Results CBC & Chem 7: 02/03/22 06:19 02/03/22 06:19 Labs: Abnormal Lab Results - Last 24 Hours (Table) 02/03/22 02/03/22 02/03/22 Range/Units 06:19 06:19 08:18 RDW 16.1 H (11.5-15.5) % Neutrophils # 8.4 H (1.3-7.7) k/uL Lymphocytes # 0.4 L (1.0-4.8) k/uL Sodium 130 L (137-145) mmol/L BUN 19 H (7-17) mg/dL Creatinine 1.06 H (0.52-1.04) mg/dL Glucose 142 H (74-99) mg/dL Total Bilirubin 3.3 H (0.2-1.3) mg/dL AST 37 H (14-36) U/L Albumin 3.0 L (3.5-5.0) g/dL Lipase 793 H (23-300) U/L Ur Specific [place] >1.050 H (1.001-1.035) Urine Protein Trace H (Negative) Urine Glucose (UA) 4+ H (Negative) Urine Bilirubin 1+ H (Negative) Assessment and Plan Assessment: Assessment and plan New diagnosis, Portal vein thrombosis Patient probably needs anticoagulation We'll request hematology evaluation Gastroenterology consulted Acute enteritis/colitis Cannot exclude infectious etiology Patient started on ceftriaxone Ascites Cannot exclude SBP Interventional radiology consult for paracentesis Continue empiric antibiotic, patient started on ceftriaxone Continue medical management, Lasix lactulose Diagnostic and therapeutic testing Abdominal pain Likely in the setting of above Continue medical management as above 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 Continue medical management Follow-up with Christiano Kaur Hypothyroidism Continue Synthyroid GERD Continue Protonix DVT prophylaxis: Heparin for paracentesis in a.m. by interventional radiology Objective - Vital Signs Vital signs: Vital Signs Temp 97.7 F 02/04/22 14:24 Pulse 87 02/04/22 14:24 Resp 14 02/04/22 14:24 BP 109/68 02/04/22 14:24 Pulse Ox 97 02/04/22 14:24 FiO2 Intake & Output 02/03/22 02/04/22 02/04/22 18:59 06:59 18:59 Intake Total 100 825 223 Balance 100 825 223 Weight 101.605 kg Intake: IV 825 Sodium Chloride 0.9% 1, 825 000 ml @ 75 mls/hr IV . [id number] [facility] Rx#:[id number] Intake, IV Titration 105 Amount Heparin Sod,Pork in 0.45% 105 NaCl 25,000 unit In 0.45 % NaCl 1 250ml.bag @ 9. 842 UNITS/KG/HR 10 mls/hr IV .Q24H [facility] Rx#: [id number] Oral 100 118 Other: Voiding Method Toilet Toilet Toilet # Voids 3 1 # Bowel Movements 2 1 - Labs CBC & Chem 7: 02/04/22 07:37 02/04/22 07:37 Labs: Abnormal Lab Results - Last 24 Hours (Table) 02/03/22 02/04/22 02/04/22 Range/Units 15:35 07:37 07:37 MCHC 30.5 L (31.0-37.0) g/dL Plt Count 85 L (150-450) k/uL Lymphocytes # 0.3 L (1.0-4.8) k/uL PT 14.5 H 15.9 H (9.0-12.0) sec INR 1.4 H 1.6 H (<1.2) APTT 94.7 H (22.0-30.0) sec Sodium (135-145) mmol/L Carbon Dioxide (20.0-27.5) mmol/L Anion Gap (10.00-18.00) mmol/L Est GFR (CKD-EPI)AfAm (60.0-200.0) Est GFR (CKD-EPI)NonAf (60.0-200.0) Calcium (8.7-10.3) mg/dL Total Bilirubin (0.30-1.20) mg/dL AST (13-35) U/L Total Protein (6.2-8.2) g/dL Albumin (3.8-4.9) g/dL Albumin/Globulin Ratio (1.60-3.17) g/dL Lipase (14-63) U/L 02/04/22 Range/Units 07:37 MCHC (31.0-37.0) g/dL Plt Count (150-450) k/uL Lymphocytes # (1.0-4.8) k/uL PT (9.0-12.0) sec INR (<1.2) APTT (22.0-30.0) sec Sodium 129 L (135-145) mmol/L Carbon Dioxide 18.5 L (20.0-27.5) mmol/L Anion Gap 9.80 L (10.00-18.00) mmol/L Est GFR (CKD-EPI)AfAm 55.2 L (60.0-200.0) Est GFR (CKD-EPI)NonAf 47.6 L (60.0-200.0) Calcium 8.4 L (8.7-10.3) mg/dL Total Bilirubin 2.50 H (0.30-1.20) mg/dL AST 40 H (13-35) U/L Total Protein 5.4 L (6.2-8.2) g/dL Albumin 2.6 L (3.8-4.9) g/dL Albumin/Globulin Ratio 0.96 L (1.60-3.17) g/dL Lipase 106 H (14-63) U/L
--- NOTE | 2022-02-04 14:43 | P.PN ---
Subjective Progress Note Date: 02/04/22 Principal diagnosis: Abdominal pain A shunt is seen and examined today as a follow-up. She has a history of primary biliary cirrhosis with the ascites. Patient gets paracentesis generally every week. Patient is due for her paracentesis and interventional radiology was consulted. She came in with complaints of epigastric abdominal pain. She was diagnosed with acute pancreatitis. Patient was also noted to have portal vein thrombus on her CT of the abdomen and pelvis. She was started on a heparin drip yesterday evening. She states abdominal pain has improved. She has no nausea or vomiting. She's been tolerating clear liquid diet. She's been afebrile. Total bilirubin 2.5 AST 48 ALT 18 alkaline phosphatase 86 lipase 106 down from 793. Objective - Vital Signs Vital signs: Vital Signs Temp 98.1 F 02/04/22 07:00 Pulse 85 02/04/22 07:00 Resp 16 02/04/22 07:00 BP 98/52 02/04/22 07:00 Pulse Ox 97 02/04/22 07:00 FiO2 Intake & Output 02/03/22 02/04/22 02/04/22 18:59 06:59 18:59 Intake Total 100 825 Balance 100 825 Weight 101.605 kg Intake: IV 825 Sodium Chloride 0.9% 1, 825 000 ml @ 75 mls/hr IV . [id number] [facility] Rx#:[id number] Oral 100 Other: Voiding Method Toilet Toilet # Voids 3 # Bowel Movements 2 - Exam General appearance: The patient is alert, oriented, appears in no acute distress. HET: Head is normocephalic and atraumatic. Conjunctiva pink. Sclera anicteric. Neck: Supple without lymphadenopathy. Abdomen: Soft, mild tenderness in the right upper quadrant/epigastric region. nondistended with bowel sounds. No guarding or rigidity. Extremities: Normal skin color and turgor. No pedal edema Skin: No rashes, no jaundice Neurological: No focal deficits. Alert and oriented -3. - Labs CBC & Chem 7: 02/04/22 07:37 02/04/22 07:37 Labs: Abnormal Lab Results - Last 24 Hours (Table) 02/03/22 02/03/22 Range/Units 08:18 15:35 PT 14.5 H (9.0-12.0) sec INR 1.4 H (<1.2) Ur Specific [place] >1.050 H (1.001-1.035) Urine Protein Trace H (Negative) Urine Glucose (UA) 4+ H (Negative) Urine Bilirubin 1+ H (Negative) Assessment and Plan (1) Abdominal pain Narrative/Plan: 61-year-old female with a history of primary biliary cirrhosis who follows with Dr. Anderson from [facility] as well as [facility] Dr. Cruz from the liver transplant team. Patient came in today with complaints of severe abdominal pain. States she's had increased diarrhea for approximately 2 weeks with abdominal pain that has become more severe in nature. Patient does undergo paracentesis weekly. Last paracentesis 01/22/2022. Unclear etiology of abdominal pain however is need to be suspicious for spontaneous bacterial peritonitis. Also possible etiologies is enteritis/colitis. Will start patient on Rocephin daily for possible SBP. Will schedule patient for paracentesis with fluid studies including fluid culture. Also need to consider possible pancreatitis, with mildly elevated lipase. Patient has no previous history of pancreatitis no new medications. Current Visit: Yes Status: Acute Code(s): R10.9 - UNSPECIFIED ABDOMINAL PAIN SNOMED Code(s): 53335446 (2) Decompensation of cirrhosis of liver Current Visit: No Status: Acute Code(s): K72.90 - HEPATIC FAILURE, UNSPECIFIED WITHOUT COMA; K74.60 - UNSPECIFIED CIRRHOSIS OF LIVER SNOMED Code(s): 469342110 (3) Portal vein thrombosis Current Visit: Yes Status: Acute Code(s): I81 - PORTAL VEIN THROMBOSIS SNOMED Code(s): 44032697 Plan: 1. Continue symptomatic and supportive care 2. Continue pain management 3. Rocephin 1 g daily ordered for possible SBP 4. Continue current diuretics 5. Hold heparin for paracentesis, interventional radiology on consult and fluid studies to be collected. 6. Daily CBC, CMP 7. She may have low sodium diet 8. Patient to follow-up with [facility] [employer] Dr. Cruz Thank you for this consultation, we will continue to follow. Dr. Jana Ji I agree with the dictator's note, documented as a scribe by Bina Forman.
[2022-02-04] MEDS ORDERED: HEPARIN SODIUM 1,000 UN/ML (10ML VL) IVP ONE (17:57)
--- NOTE | 2022-02-04 19:27 | P.CONS ---
History of Present Illness - Reason for Consult Consult date: 02/04/22 Anticoagulation recommendations portal vein thrombosis Requesting physician: Wilder Santos - Chief Complaint abd pain, diarrhea, recent liver surgery - History of Present Illness Mrs. Quintero is a pleasant 61-year-old female with a history of diabetes mellitus, hypothyroidism and biliary stent cirrhosis for which she is being followed and treated at [facility]. Patient contracted Covid 19 infection 2 weeks ago. She was not be able to have her weekly paracentesis because of active infection. She now is presenting to the hospital with complaints of abdominal discomfort and diarrhea. CT scan showed cirrhosis, evidence of portal hypertension and splenomegaly, left pleural effusion as well as a thrombus within the main portal vein with about 80% narrowing-we are consulted for the same. Patient denies any previous history of clots, no family history. She is currently on a heparin drip, denies any bleeding Review of Systems 10 point review of systems is negative except as stated in HPI Past Medical History Past Medical History: Diabetes Mellitus, Hypertension Additional Past Medical History / Comment(s): brain lesions, genetic cirrhosis of the liver, DM II, Ascites, anasarca History of Any Multi-Drug Resistant Organisms: None Reported Additional Past Surgical History / Comment(s): liver banding, right wrist, paracentesis Past Anesthesia/Blood Transfusion Reactions: No Reported Reaction Past Psychological History: No Psychological Hx Reported Smoking Status: Never smoker Past Alcohol Use History: None Reported Past Drug Use History: None Reported Medications and Allergies Home Medications Medication Instructions Recorded Confirmed Type Atorvastatin [Lipitor] 10 mg PO DAILY 04/08/21 02/03/22 History Cholecalciferol [Vitamin D3 (25 50 mcg PO DAILY 04/08/21 02/03/22 History Mcg = 1000 Iu)] Dapagliflozin Propanediol [Farxiga] 10 mg PO DAILY 04/08/21 02/03/22 History Levothyroxine Sodium [Synthroid] 175 mcg PO DAILY 04/08/21 02/03/22 History Multivitamin/Iron/Folic Acid 1 tab PO DAILY 04/08/21 02/03/22 History [Centrum Women Tablet] Secukinumab [Cosentyx Pen] 300 mg SQ Q28D 04/08/21 02/03/22 History ursodioL [Ursodiol] 500 mg PO TID 04/08/21 02/03/22 History Aspirin EC [Ecotrin Low Dose] 81 mg PO DAILY 09/15/21 02/03/22 History Pantoprazole [Protonix] 40 mg PO BID 09/15/21 02/03/22 History Furosemide [Lasix] 20 mg PO DAILY 10/01/21 02/03/22 History Spironolactone 50 mg PO DAILY 12/11/21 02/03/22 History Folic Acid 1 mg PO BID 02/03/22 02/03/22 History Lactulose [Constulose] 13.33 gm PO DAILY 02/03/22 02/03/22 History Rifaximin [Xifaxan] 550 mg PO BID 02/03/22 02/03/22 History Allergies Allergy/AdvReac Type Severity Reaction Status Date / Time No Known Allergies Allergy Verified 02/03/22 16:30 Physical Exam Vitals: Vital Signs Temp Pulse Pulse Pulse Resp BP BP 02/04/22 07:00 98.1 F 85 16 98/52 02/04/22 01:17 97.5 F L 82 19 02/03/22 19:34 97.7 F 85 16 02/03/22 15:00 97.8 F 85 18 02/03/22 14:16 60 12 110/70 02/03/22 09:00 91 16 110/87 BP Pulse Ox 02/04/22 07:00 97 02/04/22 01:17 116/69 96 02/03/22 19:34 101/56 96 02/03/22 15:00 127/61 97 02/03/22 14:16 98 02/03/22 09:00 97 Intake and Output 02/03/22 02/04/22 02/04/22 22:59 06:59 14:59 Intake Total 475 450 Balance 475 450 Intake: IV 375 450 Sodium Chloride 0.9% 1, 375 450 000 ml @ 75 mls/hr IV . [id number] [facility] Rx#:[id number] Oral 100 Other: Voiding Method Toilet Toilet # Voids 2 3 # Bowel Movements 2 2 Weight 101.605 kg - Constitutional General appearance: average body habitus, cooperative, no acute distress - EENT Eyes: anicteric sclerae, EOMI ENT: hearing grossly normal, normal oropharynx - Neck Neck: no lymphadenopathy - Respiratory Respiratory: bilateral: CTA - Cardiovascular Rhythm: regular Heart sounds: normal: S1, S2 Abnormal Heart Sounds: no systolic murmur, no diastolic murmur, no rub, no S3 Gallop, no S4 Gallop, no click, no other leg Peripheral Edema: bilateral: None - Gastrointestinal General gastrointestinal: no absent bowel sounds, no decreased bowel sounds, distended, no hepatomegaly, no hyperactive bowel sounds, normal bowel sounds, no organomegaly, no rigid, no scaphoid, soft, no splenomegaly, no tenderness, no umbilical hernia, no ventral hernia - Integumentary Integumentary: normal - Neurologic Neurologic: CNII-XII intact - Musculoskeletal Musculoskeletal: strength equal bilaterally - Psychiatric Psychiatric: A&O x's 3, appropriate affect, intact judgment & insight Results CBC & Chem 7: 02/04/22 07:37 02/04/22 07:37 Labs: Abnormal Lab Results - Last 24 Hours (Table) 02/03/22 02/03/22 Range/Units 08:18 15:35 PT 14.5 H (9.0-12.0) sec INR 1.4 H (<1.2) Ur Specific [place] >1.050 H (1.001-1.035) Urine Protein Trace H (Negative) Urine Glucose (UA) 4+ H (Negative) Urine Bilirubin 1+ H (Negative) CT scan - abdomen: report reviewed CT scan - pelvis: report reviewed Assessment and Plan Plan: Post Covid blood clot, phospholipid antibody labs ordered. Reviewed with the patient that with liver disease Coumadin is actually the preferred anticoagulant because chronic liver disease patients are to degree already auto anticoagulated. Also, with the use of DOAC agents there is no mechanism to measure of how thin the blood is, so using these agents in conjunction with liver disease does carry an increased risk of bleeding. Patient states though that she is getting paracentesis about once a week. Pt reports that she was trying to extend the time between paracentesis to maybe 10 days. Anticoagulation with Coumadin is going to be extraordinarily difficult to manage with starting and stopping for paracentesis. We will have to get debra of [facility] Literary Agent for their recommendations as to how they would like this patient anticoagulated. Discussed with Nursing. Okay to proceed with paracentesis today after heparin has been on hold for an appropriate amount of time for Radiologist. Please resume heparin drip post procedure for now, antociagulation recommendation to follow. attests: I have preformed H&P, seen and examined patient, developed impression and plan of care. Discussed with dictator. Agree with pushpa sauer, dictated as a scribe.
[2022-02-04] MEDS: HYDROmorphone 0.5 MG/0.5 ML SYRINGE IVP PRN (21:14)
[2022-02-05 00:52] LABS: Cardiolipin Ab IgG Interp NEGATIVE (NEGATIVE); Cardiolipin Ab IgM Interp NEGATIVE (NEGATIVE); Cardiolipin IgM Antibody <1.5 U/mL
[2022-02-05] MEDS: HEPARIN SOD,PORK IN 0.45% NACL 25,000 UNIT in 0.45% NACL 1 250ML.BAG IV SCH (05:32)
[2022-02-05] MEDS: SODIUM CHLORIDE 0.9% 1,000 ML IV SCH ×2 (05:33→14:49)
[2022-02-05] MEDS: LEVOTHYROXINE 88 MCG TAB PO SCH (05:43)
[2022-02-05 08:13] LABS: Anisocytosis Slight; HCT 37.1 % (34.0-46.0); HGB 11.8 gm/dL (11.4-16.0); MCH 30.5 pg (25.0-35.0); MCHC 31.7 g/dL (31.0-37.0); MCV 96.1 fL (80.0-100.0); Mean Platelet Volume 9.3; Platelet Count 110 k/uL (150-450); RBC 3.86 m/uL (3.80-5.40)
[2022-02-05 08:18] LABS: ALT 18 U/L (4-34); AST 42 U/L (14-36); African American GFR (CKD) 67 (>60 ml/min/1.73 sqM); Albumin 2.4 g/dL (3.5-5.0); Albumin/Globulin Ratio 0.8; Alkaline Phosphatase 115 U/L (38-126); Anion Gap 5 mmol/L; Blood Urea Nitrogen 22 mg/dL (7-17); Calcium 7.9 mg/dL (8.4-10.2); Carbon Dioxide 19 mmol/L (22-30); Chloride 103 mmol/L (98-107); Globulin 3.1 g/dL; Glucose 120 mg/dL (74-99); Non-African American GFR(CKD) 58 (>60 ml/min/1.73 sqM); Potassium 5.2 mmol/L (3.5-5.1); Sodium 127 mmol/L (137-145); Total Bilirubin 2.2 mg/dL (0.2-1.3); Total Protein 5.5 g/dL (6.3-8.2)
[2022-02-05] MEDS: LACTULOSE 20 GM/30 ML CUP PO SCH ×3 (08:55→20:18)
[2022-02-05] MEDS: PANTOPRAZOLE 40 MG/10 ML VIAL IV SCH (09:23)
[2022-02-05] MEDS: ATORVASTATIN 10 MG TAB PO SCH (09:23)
[2022-02-05] MEDS: SPIRONOLACTONE 25 MG TAB PO SCH (09:24)
[2022-02-05] MEDS: FUROSEMIDE 20 MG TAB PO SCH (09:24)
[2022-02-05 12:14] LABS: Cardiolipin IgA Antibody 18.8 U/mL
--- NOTE | 2022-02-05 13:46 | P.PN ---
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 She gets paracentesis on a weekly basis but last week she was unable to go for scheduled paracentesis due to positive COVID-19 test her last paracentesis was on 01/22/2022. Patient presented with the chief complaints of abdominal discomfort and diarrhea. Patient's computed tomography scan was done which showed cirrhosis evidence of portal hypertension and splenomegaly.Moderate to large left pleural effusion with adjacent atelectasis as well as new thrombus within the main portal vein with about 80% narrowing finding also consistent with nonspecific enteritis and colitis, patient was admitted to hospital medicine service Review of Systems 14 point review of system was done in detail and is negative except as above in HPI. Past Medical History Past Medical History: Diabetes Mellitus, Hypertension Additional Past Medical History / Comment(s): brain lesions, genetic cirrhosis of the liver, DM II, Ascites, anasarca History of Any Multi-Drug Resistant Organisms: None Reported Additional Past Surgical History / Comment(s): liver banding, right wrist, paracentesis Past Anesthesia/Blood Transfusion Reactions: No Reported Reaction Past Psychological History: No Psychological Hx Reported Smoking Status: Never smoker Past Alcohol Use History: None Reported Past Drug Use History: None Reported Medications and Allergies Home Medications Medication Instructions Recorded Confirmed Type Atorvastatin [Lipitor] 10 mg PO DAILY 04/08/21 02/03/22 History Cholecalciferol [Vitamin D3 (25 50 mcg PO DAILY 04/08/21 02/03/22 History Mcg = 1000 Iu)] Dapagliflozin Propanediol [Farxiga] 10 mg PO DAILY 04/08/21 02/03/22 History Levothyroxine Sodium [Synthroid] 175 mcg PO DAILY 04/08/21 02/03/22 History Multivitamin/Iron/Folic Acid 1 tab PO DAILY 04/08/21 02/03/22 History [Centrum Women Tablet] Secukinumab [Cosentyx Pen] 300 mg SQ Q28D 04/08/21 02/03/22 History ursodioL [Ursodiol] 500 mg PO TID 04/08/21 02/03/22 History Aspirin EC [Ecotrin Low Dose] 81 mg PO DAILY 09/15/21 02/03/22 History Pantoprazole [Protonix] 40 mg PO BID 09/15/21 02/03/22 History Furosemide [Lasix] 20 mg PO DAILY 10/01/21 02/03/22 History Spironolactone 50 mg PO DAILY 12/11/21 02/03/22 History Folic Acid 1 mg PO BID 02/03/22 02/03/22 History Lactulose [Constulose] 13.33 gm PO DAILY 02/03/22 02/03/22 History Rifaximin [Xifaxan] 550 mg PO BID 02/03/22 02/03/22 History Allergies Allergy/AdvReac Type Severity Reaction Status Date / Time No Known Allergies Allergy Verified 02/03/22 16:30 Physical Exam Vitals: Vital Signs Temp Pulse Resp BP Pulse Ox 02/03/22 09:00 91 16 110/87 97 02/03/22 06:03 98.1 F 107 H 20 126/70 98 Intake and Output 02/02/22 02/03/22 02/03/22 22:59 06:59 14:59 Other: Weight 101.605 kg General: non toxic, no acute distress, alert oriented to time place and person Head: atraumatic, normocephalic, symmetric Eyes: no lid lesion], anicteric sclera Mouth: no lip lesion, mucus membranes moist Cardiovascular: S1S2 reg rate and rhythm, no murmur, no gallop Lungs: Bilateral equal air entry, no wheezing no rhonchi no crackles. Abdominal: soft, tender to deep palpation Ext: no gross muscle atrophy, no edema extremities warm to suppose a positive Neuro: Alert oriented to time place and person, exam grossly nonfocal Psych: Mood and affect appropriate, patient not so certain Skin exam: No rashes no jaundice. Results CBC & Chem 7: 02/03/22 06:19 02/03/22 06:19 Labs: Abnormal Lab Results - Last 24 Hours (Table) 02/03/22 02/03/22 02/03/22 Range/Units 06:19 06:19 08:18 RDW 16.1 H (11.5-15.5) % Neutrophils # 8.4 H (1.3-7.7) k/uL Lymphocytes # 0.4 L (1.0-4.8) k/uL Sodium 130 L (137-145) mmol/L BUN 19 H (7-17) mg/dL Creatinine 1.06 H (0.52-1.04) mg/dL Glucose 142 H (74-99) mg/dL Total Bilirubin 3.3 H (0.2-1.3) mg/dL AST 37 H (14-36) U/L Albumin 3.0 L (3.5-5.0) g/dL Lipase 793 H (23-300) U/L Ur Specific [place] >1.050 H (1.001-1.035) Urine Protein Trace H (Negative) Urine Glucose (UA) 4+ H (Negative) Urine Bilirubin 1+ H (Negative) Assessment and Plan Assessment: Assessment and plan New diagnosis, Portal vein thrombosis Patient probably needs anticoagulation We'll request hematology evaluation Gastroenterology consulted Acute enteritis/colitis Cannot exclude infectious etiology Patient started on ceftriaxone Ascites Cannot exclude SBP Interventional radiology consult for paracentesis Continue empiric antibiotic, patient started on ceftriaxone Continue medical management, Lasix lactulose Diagnostic and therapeutic testing Abdominal pain Likely in the setting of above Continue medical management as above 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45 % NaCl 1 250ml.bag @ 9. 842 UNITS/KG/HR 10 mls/hr IV .Q24H [facility] Rx#: [id number] Oral 118 Other: Voiding Method Toilet Toilet # Voids 1 3 # Bowel Movements 1 - Labs CBC & Chem 7: 02/05/22 06:59 02/05/22 06:59 Labs: Abnormal Lab Results - Last 24 Hours (Table) 02/04/22 02/05/22 02/05/22 Range/Units 17:07 00:19 06:59 RDW 16.0 H (11.5-15.5) % Plt Count 110 L (150-450) k/uL APTT 40.5 H 86.1 H (22.0-30.0) sec Sodium (137-145) mmol/L Potassium (3.5-5.1) mmol/L Carbon Dioxide (22-30) mmol/L BUN (7-17) mg/dL Creatinine (0.52-1.04) mg/dL Glucose (74-99) mg/dL Calcium (8.4-10.2) mg/dL Total Bilirubin (0.2-1.3) mg/dL AST (14-36) U/L Total Protein (6.3-8.2) g/dL Albumin (3.5-5.0) g/dL 02/05/22 02/05/22 Range/Units 06:59 06:59 RDW (11.5-15.5) % Plt Count (150-450) k/uL APTT 35.8 H (22.0-30.0) sec Sodium 127 L (137-145) mmol/L Potassium 5.2 H (3.5-5.1) mmol/L Carbon Dioxide 19 L (22-30) mmol/L BUN 22 H (7-17) mg/dL Creatinine 1.05 H (0.52-1.04) mg/dL Glucose 120 H (74-99) mg/dL Calcium 7.9 L (8.4-10.2) mg/dL Total Bilirubin 2.2 H (0.2-1.3) mg/dL AST 42 H (14-36) U/L Total Protein 5.5 L (6.3-8.2) g/dL Albumin 2.4 L (3.5-5.0) g/dL Microbiology - Last 24 Hours (Table) 02/03/22 16:03 Stool Culture - Preliminary Stool
[2022-02-05 14:22] LABS: Band Neutrophils % 1 %; Monocytes # (M) 0.78 k/uL (0-1.0); Neutrophils % (M) 81 %; Nucleated Red Blood Cells 0 /100 WBC (0-0); Total Cells Counted 100
--- NOTE | 2022-02-05 16:12 | P.PN ---
Subjective Progress Note Date: 02/05/22 Principal diagnosis: Abdominal pain A shunt is seen and examined today as a follow-up. She has a history of primary biliary cirrhosis with the ascites. Patient gets paracentesis generally every week. She came in with complaints of epigastric, and abdominal pain. She's found to have mildly elevated lipase consistent with pancreatitis. No previous history of pancreatitis. She was supposed to undergo paracentesis last week however she was coded positive. She is scheduled today for paracentesis. She was diagnosed with acute pancreatitis. Patient was also noted to have portal vein thrombus on her CT of the abdomen and pelvis. She was started on a heparin drip, is currently off for her scheduled paracentesis. She states her pain has improved. She has no nausea or vomiting. She's been tolerating regular diet. She's been afebrile. Objective - Vital Signs Vital signs: Vital Signs Temp 98.2 F 02/05/22 15:09 Pulse 94 02/05/22 15:09 Resp 18 02/05/22 15:09 BP 101/63 02/05/22 15:09 Pulse Ox 99 02/05/22 15:09 FiO2 Intake & Output 02/04/22 02/05/22 02/05/22 18:59 06:59 18:59 Intake Total 270.389 65.733 240 Balance 270.389 65.733 240 Intake: Intake, IV Titration 152.389 65.733 Amount Heparin Sod,Pork in 0.45% 152.389 65.733 NaCl 25,000 unit In 0.45 % NaCl 1 250ml.bag @ 9. 842 UNITS/KG/HR 10 mls/hr IV .Q24H [facility] Rx#: [id number] Oral 118 240 Other: Voiding Method Toilet Toilet # Voids 1 3 3 # Bowel Movements 1 - Exam General appearance: The patient is alert, oriented, appears in no acute distress. HET: Head is normocephalic and atraumatic. Conjunctiva pink. Sclera anicteric. Neck: Supple without lymphadenopathy. Abdomen: Soft, nontender, ascites, nondistended with bowel sounds. No guarding or rigidity. Extremities: Normal skin color and turgor. No pedal edema Skin: No rashes, no jaundice Neurological: No focal deficits. Alert and oriented -3. - Labs CBC & Chem 7: 02/05/22 06:59 02/05/22 06:59 Labs: Abnormal Lab Results - Last 24 Hours (Table) 02/04/22 02/05/22 02/05/22 Range/Units 17:07 00:19 06:59 RDW 16.0 H (11.5-15.5) % Plt Count 110 L (150-450) k/uL Lymphocytes # (Manual) 0.30 L (1.0-4.8) k/uL APTT 40.5 H 86.1 H (22.0-30.0) sec Sodium (137-145) mmol/L Potassium (3.5-5.1) mmol/L Carbon Dioxide (22-30) mmol/L BUN (7-17) mg/dL Creatinine (0.52-1.04) mg/dL Glucose (74-99) mg/dL Calcium (8.4-10.2) mg/dL Total Bilirubin (0.2-1.3) mg/dL AST (14-36) U/L Total Protein (6.3-8.2) g/dL Albumin (3.5-5.0) g/dL 02/05/22 02/05/22 Range/Units 06:59 06:59 RDW (11.5-15.5) % Plt Count (150-450) k/uL Lymphocytes # (Manual) (1.0-4.8) k/uL APTT 35.8 H (22.0-30.0) sec Sodium 127 L (137-145) mmol/L Potassium 5.2 H (3.5-5.1) mmol/L Carbon Dioxide 19 L (22-30) mmol/L BUN 22 H (7-17) mg/dL Creatinine 1.05 H (0.52-1.04) mg/dL Glucose 120 H (74-99) mg/dL Calcium 7.9 L (8.4-10.2) mg/dL Total Bilirubin 2.2 H (0.2-1.3) mg/dL AST 42 H (14-36) U/L Total Protein 5.5 L (6.3-8.2) g/dL Albumin 2.4 L (3.5-5.0) g/dL Microbiology - Last 24 Hours (Table) 06/06/22 16:03 Stool Culture - Preliminary Stool Assessment and Plan (1) Abdominal pain Narrative/Plan: 61-year-old female with a history of primary biliary cirrhosis who follows with Dr. Anderson from [facility] as well as [facility] Dr. Cruz from the liver transplant team. Patient came in today with complaints of severe abdominal pain. States she's had increased diarrhea for approximately 2 weeks with abdominal pain that has become more severe in nature. Patient does undergo paracentesis weekly. Last paracentesis 01/22/2022. Unclear etiology of abdominal pain however is need to be suspicious for spontaneous bacterial peritonitis. Also possible etiologies is enteritis/colitis. Will start patient on Rocephin daily for possible SBP. Will schedule patient for paracentesis with fluid studies including fluid culture. Also need to consider possible pancreatitis, with mildly elevated lipase. Patient has no previous history of pancreatitis no new medications. Current Visit: Yes Status: Acute Code(s): R10.9 - UNSPECIFIED ABDOMINAL PAIN SNOMED Code(s): 99574254 (2) Decompensation of cirrhosis of liver Narrative/Plan: Patient with decompensation cirrhosis of the liver with ascites. Schedule for paracentesis today. Current Visit: No Status: Acute Code(s): K72.90 - HEPATIC FAILURE, UNSPECIFIED WITHOUT COMA; K74.60 - UNSPECIFIED CIRRHOSIS OF LIVER SNOMED Code(s): 047764125 (3) Portal vein thrombosis Narrative/Plan: Hematology following. Patient currently on a heparin drip which has been on hold for paracentesis. Hematology to discuss further anticoagulation with [facility] dredge pipeman who follows patient. Current Visit: Yes Status: Acute Code(s): I81 - PORTAL VEIN THROMBOSIS SNOMED Code(s): 84557780 Plan: 1. Continue symptomatic and supportive care 2. Continue pain management 3. Rocephin 1 g daily ordered for possible SBP 4. Continue current diuretics 5. Albumin post paracentesis 6. Daily CBC, CMP 7. She may have low sodium diet 8. Patient to follow-up with [facility] M[employer] Artist Dr. Cruz 9. Appreciate recommendations on anticoagulation per hematology Thank you for this consultation, we will continue to follow. Dr. Jana Ji I agree with the dictator's note, documented as a scribe by Bina Forman.
[2022-02-05] MEDS ORDERED: ALBUMIN HUMAN 25% 50 ML in EMPTY BAG 1 BAG IVPB ONE (16:30)
--- NOTE | 2022-02-05 19:26 | P.PN ---
Subjective Progress Note Date: 02/05/22 Principal diagnosis: portal vein thrombosis In follow-up today patient has no new complaints. She is going to have a paracentesis today. She denies any bleeding on heparin drip. Objective - Vital Signs Vital signs: Vital Signs Temp 98.2 F 02/05/22 15:09 Pulse 94 02/05/22 15:09 Resp 18 02/05/22 15:09 BP 101/63 02/05/22 15:09 Pulse Ox 99 02/05/22 15:09 FiO2 Intake & Output 02/04/22 02/05/22 02/05/22 18:59 06:59 18:59 Intake Total 270.389 65.733 240 Balance 270.389 65.733 240 Intake: Intake, IV Titration 152.389 65.733 Amount Heparin Sod,Pork in 0.45% 152.389 65.733 NaCl 25,000 unit In 0.45 % NaCl 1 250ml.bag @ 9. 842 UNITS/KG/HR 10 mls/hr IV .Q24H [facility] Rx#: [id number] Oral 118 240 Other: Voiding Method Toilet Toilet # Voids 1 3 3 # Bowel Movements 1 - Constitutional General appearance: Present: average body habitus, cooperative, no acute distress - EENT Eyes: Present: anicteric sclerae, EOMI ENT: Present: hearing grossly normal - Respiratory Details: respirations even and unlabored - Gastrointestinal General gastrointestinal: Present: distended - Neurologic Neurologic: Present: CNII-XII intact - Musculoskeletal Musculoskeletal: Present: strength equal bilaterally - Psychiatric Psychiatric: Present: A&O x's 3, appropriate affect, intact judgment & insight - Labs CBC & Chem 7: 02/05/22 06:59 02/05/22 06:59 Labs: Abnormal Lab Results - Last 24 Hours (Table) 02/04/22 02/05/22 02/05/22 Range/Units 17:07 00:19 06:59 RDW 16.0 H (11.5-15.5) % Plt Count 110 L (150-450) k/uL Lymphocytes # (Manual) 0.30 L (1.0-4.8) k/uL APTT 40.5 H 86.1 H (22.0-30.0) sec Sodium (137-145) mmol/L Potassium (3.5-5.1) mmol/L Carbon Dioxide (22-30) mmol/L BUN (7-17) mg/dL Creatinine (0.52-1.04) mg/dL Glucose (74-99) mg/dL Calcium (8.4-10.2) mg/dL Total Bilirubin (0.2-1.3) mg/dL AST (14-36) U/L Total Protein (6.3-8.2) g/dL Albumin (3.5-5.0) g/dL 02/05/22 02/05/22 Range/Units 06:59 06:59 RDW (11.5-15.5) % Plt Count (150-450) k/uL Lymphocytes # (Manual) (1.0-4.8) k/uL APTT 35.8 H (22.0-30.0) sec Sodium 127 L (137-145) mmol/L Potassium 5.2 H (3.5-5.1) mmol/L Carbon Dioxide 19 L (22-30) mmol/L BUN 22 H (7-17) mg/dL Creatinine 1.05 H (0.52-1.04) mg/dL Glucose 120 H (74-99) mg/dL Calcium 7.9 L (8.4-10.2) mg/dL Total Bilirubin 2.2 H (0.2-1.3) mg/dL AST 42 H (14-36) U/L Total Protein 5.5 L (6.3-8.2) g/dL Albumin 2.4 L (3.5-5.0) g/dL Microbiology - Last 24 Hours (Table) 02/03/22 16:03 Stool Culture - Preliminary Stool Assessment and Plan Plan: Post Covid blood clot, phospholipid antibody labs ordered, cardiolipin antibodies negative, pending lupus anticoagulant and beta-2 glycoprotein. Previously reviewed with the patient that with liver disease Coumadin is actually the preferred anticoagulant because chronic liver disease patients are to degree already auto anticoagulated. Also, with the use of DOAC agents there is no mechanism to measure of how thin the blood is, so using these agents in conjunction with liver disease does carry an increased risk of bleeding. Spoke with hepatology transplant team in [place]. Message left for patient's Finishing Supervisor, pending call back with recommendations for their preference for anticoagulation. Discussed with Nursing. Continue heparin drip for now until we have anticoagulation recommendations.
[2022-02-05] MEDS: HYDROmorphone 0.5 MG/0.5 ML SYRINGE IVP PRN (20:17)
[2022-02-05] MEDS ORDERED: HEPARIN SODIUM 1,000 UN/ML (10ML VL) IV PRN (22:35)
[2022-02-05 23:24] LABS: Appearance,BF Hazy
[2022-02-06] MEDS: SODIUM CHLORIDE 0.9% 1,000 ML IV SCH ×2 (04:38→15:54)
[2022-02-06] MEDS: LEVOTHYROXINE 88 MCG TAB PO SCH (05:41)
[2022-02-06] MEDS: HEPARIN SOD,PORK IN 0.45% NACL 25,000 UNIT in 0.45% NACL 1 250ML.BAG IV SCH ×2 (07:25→08:43)
[2022-02-06 08:04] LABS: ALT 17 U/L (4-34); AST 38 U/L (14-36); African American GFR (CKD) 86 (>60 ml/min/1.73 sqM); Albumin 2.4 g/dL (3.5-5.0); Albumin/Globulin Ratio 0.8; Alkaline Phosphatase 106 U/L (38-126); Anion Gap 5 mmol/L; Blood Urea Nitrogen 18 mg/dL (7-17); Calcium 7.7 mg/dL (8.4-10.2); Carbon Dioxide 18 mmol/L (22-30); Chloride 103 mmol/L (98-107); Globulin 3.2 g/dL; Glucose 111 mg/dL (74-99); Non-African American GFR(CKD) 75 (>60 ml/min/1.73 sqM); Potassium 5.1 mmol/L (3.5-5.1); Sodium 126 mmol/L (137-145); Total Bilirubin 2.3 mg/dL (0.2-1.3); Total Protein 5.6 g/dL (6.3-8.2)
[2022-02-06] MEDS: PANTOPRAZOLE 40 MG/10 ML VIAL IV SCH (08:46)
[2022-02-06] MEDS: SPIRONOLACTONE 25 MG TAB PO SCH (08:47)
[2022-02-06] MEDS: LACTULOSE 20 GM/30 ML CUP PO SCH ×3 (08:47→19:58)
[2022-02-06] MEDS: ATORVASTATIN 10 MG TAB PO SCH (08:47)
[2022-02-06] MEDS: FUROSEMIDE 20 MG TAB PO SCH (08:47)
[2022-02-06 09:54] LABS: HCT 39.1 % (34.0-46.0); HGB 12.1 gm/dL (11.4-16.0); MCH 29.9 pg (25.0-35.0); MCV 96.6 fL (80.0-100.0); Mean Platelet Volume 10.4; RBC 4.04 m/uL (3.80-5.40); RDW 15.3 % (11.5-15.5); WBC 6.8 k/uL (3.8-10.6)
[2022-02-06 11:06] LABS: APTT >180 Sec(s) (<43); APTT 1:1 Mix 85 Sec(s) (<43); DRVVT 1:1 Mix 39 Sec(s) (<44); Dilute Russell Viper Venom 50 Sec(s) (<44); Hexagonal Phase Neutralization Negative (Negative)
[2022-02-06] MEDS: ACETAMINOPHEN TAB 325 MG TAB PO SCH ×2 (11:19→19:03)
[2022-02-06 11:51] LABS: Albumin, Fluid Source Paracentesis Fluid; T. Protein, Body Fluid Source Paracentesis Fluid; Total Protein, Body Fluid 1370 mg/dL
[2022-02-06 13:49] LABS: Platelet Count 64 k/uL (150-450)
[2022-02-06 13:51] LABS: Eosinophils # (M) 0.14 k/uL (0-0.7); Lymphocytes # (M) 0.82 k/uL (1.0-4.8); Monocytes # (M) 0.54 k/uL (0-1.0); Neutrophils % (M) 78 %; Nucleated Red Blood Cells 0 /100 WBC (0-0); Total Cells Counted 100
--- NOTE | 2022-02-06 15:49 | P.PN ---
Subjective Progress Note Date: 02/06/22 Patient's only complaint is pain she is status post paracentesis, which pulled out 4.7 L of clear/Brittany quality. She reports that her pain did not improve much following this procedure. She does have portal vein thrombosis which is new, as well as enteritis/colitis. She has been taking pain medication which does seem to take the edge off her pain. She is able to tolerate her meals, they're with decreased appetite. She has had stools. She denies nausea, vomiting. Gen: awake, alert HEENT: normocephalic, atraumatic, good hearing acuity, moist mucous membranes Resp: good air exchange, breathing comfortably with no accessory muscle use, clear to auscultation bilaterally CVS: good distal perfusion x 4, regular rate and rhythm, no murmurs GI: soft, tenderness to palpation in the epigastrium as well as left upper and lower quadrants, ND : no SPT, no CVAT, varner catheter not present MSK: no pitting edema, no clubbing Neuro: non-focal, moving all extremities Psych: cooperative, euthymic mood Assessment/plan: New diagnosis, Portal vein thrombosis Patient started on heparin drip We'll request hematology evaluation Gastroenterology consulted Acute enteritis/colitis Cannot exclude infectious etiology Patient started on ceftriaxone Ascites Interventional radiology consult for paracentesis, status post on 02/05, pulled 4.7 L Continue empiric antibiotic, patient started on ceftriaxone, can likely de- escalate if stable tomorrow Continue medical management, Lasix lactulose Diagnostic and therapeutic testing, SBP ruled out Abdominal pain Likely in the setting of above Continue medical management as above 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 Continue medical management Follow-up with Christiano Kaur Hypothyroidism Continue Synthyroid GERD Continue Protonix DVT prophylaxis: Heparin for paracentesis today by interventional radiology Objective - Vital Signs Vital signs: Vital Signs Temp 98.9 F 02/06/22 15:09 Pulse 81 02/06/22 15:09 Resp 18 02/06/22 15:09 BP 89/52 02/06/22 15:09 Pulse Ox 96 02/06/22 15:09 FiO2 Intake & Output 02/05/22 02/06/22 02/06/22 18:59 06:59 18:59 Intake Total 240 149.878 358 Balance 240 149.878 358 Intake: Intake, IV Titration 31.878 Amount Heparin Sod,Pork in 0.45% 31.878 NaCl 25,000 unit In 0.45 % NaCl 1 250ml.bag @ 9. 842 UNITS/KG/HR 10 mls/hr IV .Q24H [facility] Rx#: [id number] Oral 240 118 358 Other: Voiding Method Toilet # Voids 3 1 2 # Bowel Movements 1 - Labs CBC & Chem 7: 02/06/22 06:17 02/06/22 06:17 Labs: Abnormal Lab Results - Last 24 Hours (Table) 02/04/22 02/05/22 02/06/22 Range/Units 19:28 21:24 06:17 Plt Count 64 L (150-450) k/uL Lymphocytes # (Manual) 0.82 L (1.0-4.8) k/uL APTT 41.0 H (22.0-30.0) sec Lupus Anticoag aPTT >180 H (<43) Sec(s) Lupus Anticoag PTT Mix 85 H (<43) Sec(s) Dil Carlo Viper Venom 50 H (<44) Sec(s) Sodium (137-145) mmol/L Carbon Dioxide (22-30) mmol/L BUN (7-17) mg/dL Glucose (74-99) mg/dL Calcium (8.4-10.2) mg/dL Total Bilirubin (0.2-1.3) mg/dL AST (14-36) U/L Total Protein (6.3-8.2) g/dL Albumin (3.5-5.0) g/dL 02/06/22 02/06/22 02/06/22 Range/Units 06:17 06:17 15:06 Plt Count (150-450) k/uL Lymphocytes # (Manual) (1.0-4.8) k/uL APTT 68.7 H 51.7 H (22.0-30.0) sec Lupus Anticoag aPTT (<43) Sec(s) Lupus Anticoag PTT Mix (<43) Sec(s) Dil Carlo Viper Venom (<44) Sec(s) Sodium 126 L (137-145) mmol/L Carbon Dioxide 18 L (22-30) mmol/L BUN 18 H (7-17) mg/dL Glucose 111 H (74-99) mg/dL Calcium 7.7 L (8.4-10.2) mg/dL Total Bilirubin 2.3 H (0.2-1.3) mg/dL AST 38 H (14-36) U/L Total Protein 5.6 L (6.3-8.2) g/dL Albumin 2.4 L (3.5-5.0) g/dL Microbiology - Last 24 Hours (Table) 02/05/22 11:44 Gram Stain - Preliminary Paracentesis Fluid Body Fluid Culture - Preliminary 02/05/22 11:44 Anaerobic Culture - Preliminary Paracentesis Fluid
--- NOTE | 2022-02-06 15:54 | US ---
Ultrasound-guided paracentesis. DATE OF EXAM: 02/05/2022 CLINICAL HISTORY: Ascites The procedure was discussed with the patient. The risks, complications, benefits, and alternatives we re discussed and any questions were answered. Informed consent was obtained. The patient was placed s upine on the ultrasound table and prepped and draped in the usual sterile fashion. All elements of maximal barrier technique were utilized. Under ultrasound guidance, access into the right lower quadrant was obtained, via the paracentesis catheter system and direct ultrasound guidanc e. Approximately 4.7 liters of straw-colored fluid was removed. The patient was stable throughout the pr ocedure and remained stable upon discharge from Department of Radiology. IMPRESSION: Successful paracentesis under ultrasound guidance.
--- NOTE | 2022-02-06 18:33 | P.PN ---
Subjective Progress Note Date: 02/06/22 Principal diagnosis: portal vein thrombosis In follow-up today patient has no new complaints. She had paracentesis yesterday. Denies bleeding on heparin drip. Objective - Vital Signs Vital signs: Vital Signs Temp 98.9 F 02/06/22 15:09 Pulse 81 02/06/22 15:09 Resp 18 02/06/22 15:09 BP 89/52 02/06/22 15:09 Pulse Ox 96 02/06/22 15:09 FiO2 Intake & Output 02/05/22 02/06/22 02/06/22 18:59 06:59 18:59 Intake Total 240 149.878 478 Balance 240 149.878 478 Intake: Intake, IV Titration 31.878 Amount Heparin Sod,Pork in 0.45% 31.878 NaCl 25,000 unit In 0.45 % NaCl 1 250ml.bag @ 9. 842 UNITS/KG/HR 10 mls/hr IV .Q24H [facility] Rx#: [id number] Oral 240 118 478 Other: Voiding Method Toilet # Voids 3 1 2 # Bowel Movements 1 - Constitutional General appearance: Present: average body habitus, cooperative, no acute distress - EENT Eyes: Present: anicteric sclerae, EOMI ENT: Present: hearing grossly normal - Respiratory Details: resp even and unlabored - Gastrointestinal General gastrointestinal: Present: distended, soft - Neurologic Neurologic: Present: CNII-XII intact - Musculoskeletal Musculoskeletal: Present: strength equal bilaterally - Psychiatric Psychiatric: Present: A&O x's 3, appropriate affect, intact judgment & insight - Labs CBC & Chem 7: 02/06/22 06:17 02/06/22 06:17 Labs: Abnormal Lab Results - Last 24 Hours (Table) 02/04/22 02/05/22 02/06/22 Range/Units 19:28 21:24 06:17 Plt Count 64 L (150-450) k/uL Lymphocytes # (Manual) 0.82 L (1.0-4.8) k/uL APTT 41.0 H (22.0-30.0) sec Lupus Anticoag aPTT >180 H (<43) Sec(s) Lupus Anticoag PTT Mix 85 H (<43) Sec(s) Dil Carlo Viper Venom 50 H (<44) Sec(s) Sodium (137-145) mmol/L Carbon Dioxide (22-30) mmol/L BUN (7-17) mg/dL Glucose (74-99) mg/dL Calcium (8.4-10.2) mg/dL Total Bilirubin (0.2-1.3) mg/dL AST (14-36) U/L Total Protein (6.3-8.2) g/dL Albumin (3.5-5.0) g/dL 02/06/22 02/06/22 02/06/22 Range/Units 06:17 06:17 15:06 Plt Count (150-450) k/uL Lymphocytes # (Manual) (1.0-4.8) k/uL APTT 68.7 H 51.7 H (22.0-30.0) sec Lupus Anticoag aPTT (<43) Sec(s) Lupus Anticoag PTT Mix (<43) Sec(s) Dil Carlo Viper Venom (<44) Sec(s) Sodium 126 L (137-145) mmol/L Carbon Dioxide 18 L (22-30) mmol/L BUN 18 H (7-17) mg/dL Glucose 111 H (74-99) mg/dL Calcium 7.7 L (8.4-10.2) mg/dL Total Bilirubin 2.3 H (0.2-1.3) mg/dL AST 38 H (14-36) U/L Total Protein 5.6 L (6.3-8.2) g/dL Albumin 2.4 L (3.5-5.0) g/dL Microbiology - Last 24 Hours (Table) 02/03/22 16:03 Stool Culture - Preliminary Stool 02/05/22 11:44 Gram Stain - Preliminary Paracentesis Fluid Body Fluid Culture - Preliminary 02/05/22 11:44 Anaerobic Culture - Preliminary Paracentesis Fluid Assessment and Plan Plan: Post Covid blood clot, phospholipid antibody labs ordered, cardiolipin antibodies negative, lupus anticoagulant neg. Pending beta-2 glycoprotein. Spoke with pt Salmon Troll Fisher, reviewed case. Ok for anticoagulation with eliquis for now. would like to know when pt DC. Would also like results of beta 2 glycoprotein. Discussed with pt. Will start eliquis tonight. Time with Patient: Greater than 30
[2022-02-06] MEDS: APIXABAN 5 MG TAB PO SCH (19:59)
[2022-02-07] MEDS: ACETAMINOPHEN TAB 325 MG TAB PO SCH ×3 (01:06→11:06)
[2022-02-07] MEDS: LEVOTHYROXINE 88 MCG TAB PO SCH (05:24)
[2022-02-07] MEDS: SODIUM CHLORIDE 0.9% 1,000 ML IV SCH (05:25)
[2022-02-07 07:11] LABS: INR 1.7 (<1.2); Partial Thromboplastin Time 34.8 sec (22.0-30.0); Prothrombin Time 17.5 sec (9.0-12.0)
[2022-02-07 08:01] VITALS: BP 96/56; PULSE 86; RESP 22; TEMP 98
[2022-02-07] MEDS: PANTOPRAZOLE 40 MG/10 ML VIAL IV SCH (08:52)
[2022-02-07] MEDS: FUROSEMIDE 20 MG TAB PO SCH (08:54)
[2022-02-07] MEDS: ATORVASTATIN 10 MG TAB PO SCH (08:54)
[2022-02-07] MEDS: SPIRONOLACTONE 25 MG TAB PO SCH (08:54)
[2022-02-07] MEDS: APIXABAN 5 MG TAB PO SCH (08:54)
[2022-02-07] MEDS: LACTULOSE 20 GM/30 ML CUP PO SCH (08:55)
[2022-02-07 09:41] LABS: African American GFR (CKD) 70.9 (60.0-200.0); Albumin 2.3 g/dL (3.8-4.9); Albumin/Globulin Ratio 0.96 (1.60-3.17); Anion Gap 5.2 mmol/L (10.00-18.00); BUN/Creat Ratio 15.6 Ratio (12.00-20.00); Blood Urea Nitrogen 15.6 mg/dL (9.0-27.0); Calcium 7.6 mg/dL (8.7-10.3); Carbon Dioxide 16.8 mmol/L (20.0-27.5); Globulin 2.4 g/dL (1.6-3.3); Non-African American GFR(CKD) 61.2 (60.0-200.0); Potassium 5.1 mmol/L (3.5-5.5); Total Bilirubin 1.5 mg/dL (0.30-1.20); Total Protein 4.7 g/dL (6.2-8.2)
[2022-02-07 10:33] LABS: Basophils # (A) 0.04 X 10*3/uL (0.00-0.10); Basophils % (A) 0.8 %; Eosinophils # (A) 0.08 X 10*3/uL (0.04-0.35); Eosinophils % (A) 1.5 %; HCT 32.8 % (37.2-46.3); HGB 10.8 g/dL (12.0-15.0); Immature Grans, Automated 0.4 %; Lymphocytes # (A) 0.35 X 10*3/uL (0.90-5.00); Lymphocytes % (A) 6.8 %; MCH 29.5 pg (27.0-32.0); MCHC 32.9 g/dL (32.0-37.0); MCV 89.6 fL (80.0-97.0); Monocytes # (A) 0.68 X 10*3/uL (0.20-1.00); Monocytes % (A) 13.2 %; NRBC Per 100 WBC 0 /100 WBCS (0.0-0.0); Neutrophils % (A) 77.3 %; Platelet Count 86 X 10*3/uL (140-440); RBC 3.66 X 10*6/uL (4.10-5.20); RDW 16.4 % (11.5-14.5); WBC 5.17 X 10*3/uL (4.50-10.00)
--- NOTE | 2022-02-07 14:20 | P.DS ---
Providers Date of admission: 02/04/22 11:54 Expected date of discharge: 02/07/22 Attending physician: Clemente Sanchez MD Consults: 02/03/22 08:48 Consult Physician Urgent Consulting Provider: Kaycee Ji Consult Reason/Comments: Pancreatitis Do you want consulting provider notified?: Yes 02/03/22 19:48 Consult Physician Routine Consulting Provider: Oscar Whitt Consult Reason/Comments: portal vein thrombosis, recs for anticoagulation Do you want consulting provider notified?: Yes Primary care physician: Minoo Gonzales DO Hospital Course: New diagnosis, Portal vein thrombosis Acute enteritis/colitis Ascites Abdominal pain 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 She initially had an abdominal CT which demonstrated enlarged spleen to 17.4 cm, mild varices of the distal esophagus at the GE junction, cirrhotic liver, new findings of portal vein thrombosis, moderate to large ascites. There was also evidence of enteritis as well as colitis. Patient was admitted and started on anticoagulation with heparin drip, ultimately transitioned to Apixiban. Patient was seen by the GI service who started ceftriaxone due to suspicion of SBP, recommended paracentesis. Patient had 4.7 L pulled out, however, cell count was not suspicious for SBP. Patient was doing well on the day of discharge, patient had improved. She was switched from heparin to Apixiban, recommended that she follow-up with her hepatology doctor for further recommendations. She was not discharged home on any antibiotics due to no evidence of bacterial infection. I spent 33 minutes coordinating this complex discharge, discharge date 02/07 Gen: awake, alert HEENT: normocephalic, atraumatic, good hearing acuity, moist mucous membranes Resp: good air exchange, breathing comfortably with no accessory muscle use, clear to auscultation bilaterally CVS: good distal perfusion x 4, regular rate and rhythm, no murmurs GI: soft, tenderness to palpation in the epigastrium as well as left upper and lower quadrants, ND : no SPT, no CVAT, varner catheter not present MSK: no pitting edema, no clubbing Neuro: non-focal, moving all extremities Psych: cooperative, euthymic mood Patient Condition at Discharge: Good Plan - Discharge Summary New Discharge Prescriptions: New Acetaminophen Tab [Tylenol] 650 mg PO Q6HR tab Lactulose [Cephulac] 10 gm PO TID #1500 ml oxyCODONE HCL [OxyIR] 5 mg PO Q4H PRN #18 tab PRN Reason: Pain Continue ursodioL [Ursodiol] 500 mg PO TID Dapagliflozin Propanediol [Farxiga] 10 mg PO DAILY Furosemide [Lasix] 20 mg PO DAILY Secukinumab [Cosentyx Pen] 300 mg SQ Q28D Multivitamin/Iron/Folic Acid [Centrum Women Tablet] 1 tab PO DAILY Cholecalciferol [Vitamin D3 (25 Mcg = 1000 Iu)] 50 mcg PO DAILY Levothyroxine Sodium [Synthroid] 175 mcg PO DAILY Atorvastatin [Lipitor] 10 mg PO DAILY Pantoprazole [Protonix] 40 mg PO BID Aspirin EC [Ecotrin Low Dose] 81 mg PO DAILY Spironolactone 50 mg PO DAILY Rifaximin [Xifaxan] 550 mg PO BID Folic Acid 1 mg PO BID Discontinued Lactulose [Constulose] 13.33 gm PO DAILY No Action Apixaban [Eliquis Starter Pack (for VTE)] 5 - 10 mg PO DIRECTED Discharge Medication List Atorvastatin [Lipitor] 10 mg PO DAILY 04/08/21 [History] Cholecalciferol [Vitamin D3 (25 Mcg = 1000 Iu)] 50 mcg PO DAILY 04/08/21 [History] Dapagliflozin Propanediol [Farxiga] 10 mg PO DAILY 04/08/21 [History] Levothyroxine Sodium [Synthroid] 175 mcg PO DAILY 04/08/21 [History] Multivitamin/Iron/Folic Acid [Centrum Women Tablet] 1 tab PO DAILY 04/08/21 [History] Secukinumab [Cosentyx Pen] 300 mg SQ Q28D 04/08/21 [History] ursodioL [Ursodiol] 500 mg PO TID 04/08/21 [History] Aspirin EC [Ecotrin Low Dose] 81 mg PO DAILY 09/15/21 [History] Pantoprazole [Protonix] 40 mg PO BID 09/15/21 [History] Furosemide [Lasix] 20 mg PO DAILY 10/01/21 [History] Spironolactone 50 mg PO DAILY 12/11/21 [History] Folic Acid 1 mg PO BID 02/03/22 [History] Rifaximin [Xifaxan] 550 mg PO BID 02/03/22 [History] Acetaminophen Tab [Tylenol] 650 mg PO Q6HR tab 02/07/22 [Rx] Apixaban [Eliquis Starter Pack (for VTE)] 5 - 10 mg PO DIRECTED 02/07/22 [History] Lactulose [Cephulac] 10 gm PO TID #1500 ml 02/07/22 [Rx] oxyCODONE HCL [OxyIR] 5 mg PO Q4H PRN #18 tab 02/07/22 [Rx] Follow up Appointment(s)/Referral(s): Minoo Gonzales DO [Primary Care Provider] - 1-2 days
== END 2022-02-07 11:26 | disposition home or self-care (01) | DRG 441 ==
LOC: EC 06:01 → 6NMEDSUR 09:01 → OBSVTOIN 02-04 11:54
PROVIDERS: ADMIT Internal Medicine; ATTEND Internal Medicine
PROC: 0W9G3ZX Drainage of Peritoneal Cavity, Percutaneous Approach, Diagnostic (ICD-10-PCS; principal; 2022-02-05)
DX: I81 Portal vein thrombosis (principal); K85.90 Acute pancreatitis without necrosis or infection, unspecified; I85.00 Esophageal varices without bleeding; J90 Pleural effusion, not elsewhere classified; R18.8 Other ascites; K76.6 Portal hypertension; J98.11 Atelectasis; Z76.82 Awaiting organ transplant status; K72.90 Hepatic failure, unspecified without coma; E88.09 Other disorders of plasma-protein metabolism, not elsewhere classified; K74.3 Primary biliary cirrhosis; E11.9 Type 2 diabetes mellitus without complications; E03.9 Hypothyroidism, unspecified; K21.9 Gastro-esophageal reflux disease without esophagitis; K52.9 Noninfective gastroenteritis and colitis, unspecified; R16.1 Splenomegaly, not elsewhere classified; I10 Essential (primary) hypertension; Z79.82 Long term (current) use of aspirin; Z79.84 Long term (current) use of oral hypoglycemic drugs; Z79.890 Hormone replacement therapy; Z79.899 Other long term (current) drug therapy; Z86.16 Personal history of COVID-19; Z86.69 Personal history of other diseases of the nervous system and sense organs; Z87.19 Personal history of other diseases of the digestive system; Z87.39 Personal history of other diseases of the musculoskeletal system and connective tissue; Z96.89 Presence of other specified functional implants; Z98.890 Other specified postprocedural states
CPT/HCPCS: 36415; 49083; 74177; 80053; 81003; 82042; 82105; 82150; 83605; 83690; 83735; 84100; 84157; 85025; 85598; 85610; 85613; 85730; 85732; 86146; 86147; 87045; 87046; 87070; 87075; 87205; 87324; 89050; 96361; 96365; 96366; 96375; 96376; 99285

== ENCOUNTER 2022-02-19 12:12 | Day surgery (SDC) | payer OTHER ==
[2022-02-19 13:14] LABS: Mean Platelet Volume 9.5
[2022-02-19 13:22] LABS: INR 1.2 (<1.2); Prothrombin Time 12.5 sec (9.0-12.0)
[2022-02-19 13:23] LABS: Platelet Count 123 k/uL (150-450)
[2022-02-19] MEDS: ALBUMIN HUMAN 25% 50 ML in EMPTY BAG 1 BAG IVPB SCH ×4 (13:39→14:35)
[2022-02-19 14:15] VITALS: RESP 18
[2022-02-19] MEDS ORDERED: LIDOCAINE 1% PF 10 MG/ML (5 ML AMP) SQ ONE (14:19)
[2022-02-19 16:18] VITALS: BP 101/67; PULSE 72
--- NOTE | 2022-02-20 08:15 | US ---
Ultrasound-guided paracentesis. DATE OF EXAM: 02/19/2022 CLINICAL HISTORY: Ascites The procedure was discussed with the patient. The risks, complications, benefits, and alternatives we re discussed and any questions were answered. Informed consent was obtained. The patient was placed s upine on the ultrasound table and prepped and draped in the usual sterile fashion. All elements of maximal barrier technique were utilized. Under ultrasound guidance, access into the right lower quadrant was obtained, via the paracentesis catheter system and direct ultrasound guidanc e. Approximately 9.8 liters of straw-colored fluid was removed. The patient was stable throughout the pr ocedure and remained stable upon discharge from Department of Radiology. IMPRESSION: Successful paracentesis under ultrasound guidance.
[2022-02-21 16:11] LABS: Albumin 2.7 g/dL (3.5-5.0); Bilirubin,Unconjugated 0.8 mg/dL (0.0-1.1); Calcium 8.2 mg/dL (8.4-10.2); Total Bilirubin 1.8 mg/dL (0.2-1.3); Total Protein 6.2 g/dL (6.3-8.2)
== END 2022-02-19 16:20 | disposition home or self-care (01) ==
LOC: RADPROMAIN 12:12
PROVIDERS: ATTEND Otolaryngology
DX: K74.3 Primary biliary cirrhosis (principal); R18.8 Other ascites; K85.90 Acute pancreatitis without necrosis or infection, unspecified; Z79.82 Long term (current) use of aspirin; Z79.899 Other long term (current) drug therapy; Z79.890 Hormone replacement therapy
CPT/HCPCS: 80048; 80076; 85049; 85610; 36415; 49083; J2001; P9047; 82565; 82947

== ENCOUNTER 2022-02-26 12:31 | Day surgery (SDC) | payer OTHER ==
[2022-02-26 12:42] VITALS: RESP 16; TEMP 98.1
[2022-02-26 13:07] LABS: Mean Platelet Volume 9.2; Platelet Count 155 k/uL (150-450)
[2022-02-26 13:18] LABS: INR 1.2 (<1.2); Prothrombin Time 13.1 sec (9.0-12.0)
[2022-02-26] MEDS: ALBUMIN HUMAN 25% 50 ML in EMPTY BAG 1 BAG IVPB SCH ×4 (13:45→14:33)
[2022-02-26 14:48] VITALS: BP 95/52; PULSE 87
--- NOTE | 2022-02-26 16:07 | US ---
Ultrasound-guided paracentesis. DATE OF EXAM: 02/26/2022 CLINICAL HISTORY: Ascites The procedure was discussed with the patient. The risks, complications, benefits, and alternatives we re discussed and any questions were answered. Informed consent was obtained. The patient was placed s upine on the ultrasound table and prepped and draped in the usual sterile fashion. All elements of maximal barrier technique were utilized. Under ultrasound guidance, access into the right lower quadrant was obtained, via the paracentesis catheter system and direct ultrasound guidanc e. Approximately 7 liters of straw-colored fluid was removed. The patient was stable throughout the proc edure and remained stable upon discharge from Department of Radiology. IMPRESSION: Successful paracentesis under ultrasound guidance.
== END 2022-02-26 14:55 | disposition home or self-care (01) ==
LOC: RADPROMAIN 12:31
PROVIDERS: ATTEND Internal Medicine
DX: K74.3 Primary biliary cirrhosis (principal)
CPT/HCPCS: 82565; 82947; 85049; 85610; 36415; 49083; P9047

== ENCOUNTER → 2022-02-26 | Outpatient (CLI) | payer OTHER | END | disposition home or self-care (01) | LOC: LABWHC1 15:12 | PROVIDERS: ATTEND Dermatology | DX: Z76.82 Awaiting organ transplant status (principal); Z98.890 Other specified postprocedural states | CPT/HCPCS: 36415; 86480 ==

== ENCOUNTER 2022-03-05 12:27 | Day surgery (SDC) | payer OTHER ==
[2022-03-05 12:56] LABS: Mean Platelet Volume 8.6; Platelet Count 140 k/uL (150-450)
[2022-03-05 13:02] VITALS: TEMP 98.2
[2022-03-05 13:06] LABS: INR 1.2 (<1.2)
[2022-03-05] MEDS: ALBUMIN HUMAN 25% 50 ML in EMPTY BAG 1 BAG IVPB SCH ×4 (13:13→14:04)
[2022-03-05] MEDS ORDERED: LIDOCAINE 1% PF 10 MG/ML (5 ML AMP) SQ ONE (13:36)
[2022-03-05 14:57] VITALS: BP 108/67; PULSE 92; RESP 14
--- NOTE | 2022-03-05 15:35 | US ---
EXAMINATION TYPE: US paracentesis abd w/image DATE OF EXAM: 03/05/2022 COMPARISON: NONE HISTORY: Ascites. PROCEDURE: Maximal barrier technique was utilized. The skin overlying a suitable pocket of fluid was localized with ultrasound and the overlying skin was prepped and draped. Ultrasound was utilized with sterile technique. Lidocaine was used for local anesthesia and a skin rebecca made with a scalpel. Catheter was advanced under direct ultrasound guidance into a suitable pocket of fluid and approximately 8 liters of ascites fluid were removed. Catheter was withdrawn and hemostasis achieved. There is no immediat e complication; the patient is discharged in stable condition. IMPRESSION: STATUS POST ULTRASOUND GUIDED PARACENTESIS FOR PALLIATION OF ASCITES. THIS PROCEDURE WA S PERFORMED BY THE UNDERSIGNED.
[2022-03-07 13:00] LABS: Albumin 2.8 g/dL (3.5-5.0); Calcium 8.3 mg/dL (8.4-10.2); Potassium 4.4 mmol/L (3.5-5.1); Total Bilirubin 1.5 mg/dL (0.2-1.3); Total Protein 6.2 g/dL (6.3-8.2)
== END 2022-03-05 14:50 | disposition home or self-care (01) ==
LOC: RADPROMAIN 12:27
PROVIDERS: ATTEND Internal Medicine
DX: R18.8 Other ascites (principal); K74.3 Primary biliary cirrhosis
CPT/HCPCS: 82565; 82947; 85049; 85610; 36415; 49083; J2001; P9047; 80053

== ENCOUNTER 2022-03-19 12:23 | Day surgery (SDC) | payer OTHER ==
[2022-03-19 13:38] LABS: Mean Platelet Volume 8.9; Platelet Count 136 k/uL (150-450)
[2022-03-19 14:12] LABS: INR 1.4 (<1.2); Prothrombin Time 14.1 sec (9.0-12.0)
[2022-03-19 14:16] LABS: Albumin 2.9 g/dL (3.5-5.0); Bilirubin, Conjugated 0.1 mg/dL (0.0-0.3); Bilirubin, Delta 1.4 mg/dL (0.0-0.2); Bilirubin,Unconjugated 1.1 mg/dL (0.0-1.1); Calcium 8.1 mg/dL (8.4-10.2); Potassium 4.3 mmol/L (3.5-5.1); Total Bilirubin 2.6 mg/dL (0.2-1.3); Total Protein 5.6 g/dL (6.3-8.2)
[2022-03-19] MEDS: ALBUMIN HUMAN 25% 50 ML in EMPTY BAG 1 BAG IVPB SCH ×4 (14:33→15:28)
[2022-03-19 15:01] VITALS: TEMP 97.7
[2022-03-19 16:44] VITALS: BP 119/63; PULSE 80; RESP 16
[2022-03-20 02:25] LABS: Appearance,BF Clear
--- NOTE | 2022-03-20 07:49 | US ---
Ultrasound-guided paracentesis. DATE OF EXAM: 03/19/2022 CLINICAL HISTORY: Ascites The procedure was discussed with the patient. The risks, complications, benefits, and alternatives we re discussed and any questions were answered. Informed consent was obtained. The patient was placed s upine on the ultrasound table and prepped and draped in the usual sterile fashion. All elements of maximal barrier technique were utilized. Under ultrasound guidance, access into the right lower quadrant was obtained, via the paracentesis catheter system and direct ultrasound guidanc e. Approximately 8.2 liters of straw-colored fluid was removed. The patient was stable throughout the pr ocedure and remained stable upon discharge from Department of Radiology. IMPRESSION: Successful paracentesis under ultrasound guidance.
== END 2022-03-19 16:30 | disposition home or self-care (01) ==
LOC: RADPROMAIN 12:23
PROVIDERS: ATTEND Internal Medicine
DX: R18.8 Other ascites (principal); K74.3 Primary biliary cirrhosis
CPT/HCPCS: 80048; 80076; 89050; 85049; 85610; 87070; 87205; 87075; 36415; 49083; P9047

== ENCOUNTER 2022-03-26 12:13 | Day surgery (SDC) | payer OTHER ==
[2022-03-26 13:31] LABS: Anisocytosis Slight; HCT 29.1 % (34.0-46.0); HGB 9.2 gm/dL (11.4-16.0); Hypochromasia Moderate; MCH 27.9 pg (25.0-35.0); MCHC 31.7 g/dL (31.0-37.0); MCV 88.2 fL (80.0-100.0); Mean Platelet Volume 8.6; Platelet Count 135 k/uL (150-450); RBC 3.31 m/uL (3.80-5.40); RDW 17.3 % (11.5-15.5); WBC 9.2 k/uL (3.8-10.6)
[2022-03-26 13:37] LABS: INR 1.3 (<1.2); Prothrombin Time 13.2 sec (9.0-12.0)
[2022-03-26 13:42] LABS: Albumin 2.8 g/dL (3.5-5.0); Bilirubin, Delta 1.3 mg/dL (0.0-0.2); Bilirubin,Unconjugated 0.8 mg/dL (0.0-1.1); Calcium 8.4 mg/dL (8.4-10.2); Potassium 5.7 mmol/L (3.5-5.1); Total Bilirubin 2.1 mg/dL (0.2-1.3); Total Protein 5.6 g/dL (6.3-8.2)
[2022-03-26] MEDS: ALBUMIN HUMAN 25% 50 ML in EMPTY BAG 1 BAG IVPB SCH ×4 (14:28→15:13)
[2022-03-26 15:00] VITALS: TEMP 97.4
[2022-03-26 15:44] LABS: Eosinophils # (M) 0.28 k/uL (0-0.7); Lymphocytes # (M) 0.46 k/uL (1.0-4.8); Neutrophils # (M) 7.36 k/uL (1.3-7.7); Neutrophils % (M) 80 %; Nucleated Red Blood Cells 0 /100 WBC (0-0); Total Cells Counted 100
[2022-03-26 15:58] VITALS: BP 112/56; PULSE 91; RESP 18
[2022-03-27 00:34] LABS: Appearance,BF Hazy
--- NOTE | 2022-03-27 08:13 | US ---
EXAMINATION TYPE: US paracentesis abd w/image DATE OF EXAM: 03/26/2022 CLINICAL HISTORY: Ascites The procedure was discussed with the patient. The risks, complications, benefits, and alternatives we re discussed and any questions were answered. Informed consent was obtained. The patient was placed s upine on the ultrasound table and prepped and draped in the usual sterile fashion. All elements of maximal barrier technique were utilized. Under ultrasound guidance, access into the right lower quadrant was obtained, via the paracentesis catheter system and direct ultrasound guidanc e. Approximately 8 liters of straw-colored fluid was removed. The patient was stable throughout the proc edure and remained stable upon discharge from Department of Radiology. IMPRESSION: Successful therapeutic paracentesis under ultrasound guidance.
== END 2022-03-26 15:45 | disposition home or self-care (01) ==
LOC: RADPROMAIN 12:13
PROVIDERS: ATTEND Internal Medicine
DX: K74.3 Primary biliary cirrhosis (principal); R18.8 Other ascites
CPT/HCPCS: 80048; 80076; 89050; 85025; 85610; 87070; 87205; 87075; 36415; 49083; P9047

== ENCOUNTER 2022-03-28 15:21 | Emergency (ER) | payer OTHER ==
[2022-03-28 15:37] VITALS: BP 92/57; PULSE 95; RESP 20
[2022-03-28] MEDS ORDERED: TOPICAL SKIN ADHESIVE 1 EACH AMP TOPICAL ONE (17:13)
[2022-03-28] MEDS ORDERED: MUPIROCIN 2% OINT 22 GM TUBE TOPICAL STA (17:31)
[2022-03-28] MEDS ORDERED: BACITRACIN OINT 1 EACH PACKET TOPICAL ONE (17:45)
--- NOTE | 2022-03-28 17:48 | ED ---
General Adult HPI - General Chief complaint: Recheck/Abnormal Lab/Rx Stated complaint: leaking form procedure Time Seen by Provider: 03/28/22 17:00 Source: patient Mode of arrival: ambulatory Limitations: no limitations - History of Present Illness Initial comments: 61-year-old female with past medical history of primary biliary cirrhosis presents to the emergency department requesting repair of her paracentesis site. States that she was hospitalized at [facility] last week and had a paracentesis. She has been draining from the site ever since. She did have a paracentesis [address] Lawler[address] He remarks that the paracentesis site was too low he'll over. She called and spoke with her transplant team who stated that she should go to the ER for Dermabond or suture repair. She denies any pustular drainage. No fevers. No bloody drainage. No other alleviating, precipitating or modifying factors - Related Data Home Medications Medication Instructions Recorded Confirmed Atorvastatin [Lipitor] 10 mg PO DAILY 04/08/21 03/26/22 Cholecalciferol [Vitamin D3 (25 50 mcg PO DAILY 04/08/21 03/26/22 Mcg = 1000 Iu)] Dapagliflozin Propanediol [Farxiga] 10 mg PO DAILY 04/08/21 03/26/22 Levothyroxine Sodium [Synthroid] 175 mcg PO DAILY 04/08/21 03/26/22 Multivitamin/Iron/Folic Acid 1 tab PO DAILY 04/08/21 03/26/22 [Centrum Women Tablet] Secukinumab [Cosentyx Pen] 300 mg SQ Q28D 04/08/21 03/26/22 ursodioL [Ursodiol] 500 mg PO TID 04/08/21 03/26/22 Aspirin EC [Ecotrin Low Dose] 81 mg PO DAILY 09/15/21 03/26/22 Pantoprazole [Protonix] 40 mg PO BID 09/15/21 03/26/22 Furosemide [Lasix] 20 mg PO DAILY 10/01/21 03/26/22 Spironolactone 50 mg PO DAILY 12/11/21 03/26/22 Folic Acid 1 mg PO BID 02/03/22 03/26/22 Rifaximin [Xifaxan] 550 mg PO BID 02/03/22 03/26/22 Calcium Carbonate [Tums] 500 mg PO DAILY 03/19/22 03/26/22 Levofloxacin [Levaquin] 250 mg PO DAILY 03/19/22 03/26/22 Magnesium Oxide [Mag-Ox] 400 mg PO DAILY 03/19/22 03/26/22 Previous Rx's Medication Instructions Recorded Acetaminophen Tab [Tylenol] 650 mg PO Q6HR tab 02/07/22 Lactulose [Cephulac] 10 gm PO TID #1500 ml 02/07/22 Allergies Allergy/AdvReac Type Severity Reaction Status Date / Time No Known Allergies Allergy Verified 03/28/22 15:37 Review of Systems ROS Statement: Those systems with pertinent positive or pertinent negative responses have been documented in the HPI. ROS Other: All systems not noted in ROS Statement are negative. Past Medical History Past Medical History: Diabetes Mellitus, GI Bleed, Hypertension Additional Past Medical History / Comment(s): brain lesions, genetic cirrhosis of the liver, DM II, Ascites, anasarca, GI bleed after heparin infusion and one dose of eliquis for bloot clot in hepatic vein History of Any Multi-Drug Resistant Organisms: None Reported Additional Past Surgical History / Comment(s): liver banding, right wrist, multiple paracentesis procedures Past Anesthesia/Blood Transfusion Reactions: No Reported Reaction Past Psychological History: No Psychological Hx Reported Smoking Status: Never smoker Past Alcohol Use History: None Reported Past Drug Use History: None Reported General Exam Limitations: no limitations General appearance: alert, in no apparent distress Respiratory exam: Present: normal lung sounds bilaterally. Absent: respiratory distress, wheezes, rales, rhonchi, stridor Cardiovascular Exam: Present: regular rate, normal rhythm GI/Abdominal exam: Present: other (obese. massive ascites. pinpoint hole with small serosanginous drainage right lower abdominal wall) Course Vital Signs 03/28/22 15:27 Pulse Rate 95 Respiratory 20 Rate Blood Pressure 92/57 O2 Sat by Pulse 98 Oximetry Medical Decision Making - Medical Decision Making Upon arrival patient was placed into room [address] Dermabond over the small puncture site. Patient is able to get up and use the restroom and has no drainage. Started to keep the area clean and dry for the next 10 days. Return for any new or worsening symptoms. Patient was discharged home in stable condition Disposition Clinical Impression: Ascites Disposition: HOME SELF-CARE Condition: Stable Instructions (If sedation given, give patient instructions): Skin Adhesive Care (ED) Additional Instructions: Do not place any creams to the area. Follow up with your doctors as directed and return for any new or worsening symptoms Is patient prescribed a controlled substance at d/c from ED?: No Referrals: Minoo Gonzales DO [Primary Care Provider] - 1-2 days Time of Disposition: 17:47
== END 2022-03-28 18:18 | disposition home or self-care (01) ==
LOC: EC 15:21
DX: R18.8 Other ascites (principal); E11.9 Type 2 diabetes mellitus without complications; I10 Essential (primary) hypertension; Z79.899 Other long term (current) drug therapy
CPT/HCPCS: 99283

== ENCOUNTER 2022-04-09 12:25 | Day surgery (SDC) | payer OTHER ==
[2022-04-09 12:58] VITALS: RESP 16; TEMP 97.7
[2022-04-09 13:00] LABS: Mean Platelet Volume 9.2
[2022-04-09 13:09] LABS: INR 1.3 (<1.2); Prothrombin Time 13.4 sec (9.0-12.0)
[2022-04-09 13:18] LABS: Albumin 2.5 g/dL (3.5-5.0); Bilirubin, Delta 0.8 mg/dL (0.0-0.2); Bilirubin,Unconjugated 0.5 mg/dL (0.0-1.1); Calcium 7.7 mg/dL (8.4-10.2); Potassium 4.6 mmol/L (3.5-5.1); Total Bilirubin 1.3 mg/dL (0.2-1.3); Total Protein 5.4 g/dL (6.3-8.2)
[2022-04-09 13:28] LABS: Platelet Count 92 k/uL (150-450)
[2022-04-09] MEDS: ALBUMIN HUMAN 25% 50 ML in EMPTY BAG 1 BAG IVPB SCH ×4 (13:47→14:32)
[2022-04-09 14:46] VITALS: PULSE 85
[2022-04-09 14:55] VITALS: BP 113/68
--- NOTE | 2022-04-09 15:41 | US ---
Ultrasound-guided paracentesis. DATE OF EXAM: 04/09/2022 CLINICAL HISTORY: Ascites The procedure was discussed with the patient. The risks, complications, benefits, and alternatives we re discussed and any questions were answered. Informed consent was obtained. The patient was placed s upine on the ultrasound table and prepped and draped in the usual sterile fashion. All elements of maximal barrier technique were utilized. Under ultrasound guidance, access into the right lower quadrant was obtained, via the paracentesis catheter system and direct ultrasound guidanc e. Approximately 7.2 liters of straw-colored fluid was removed. The patient was stable throughout the pr ocedure and remained stable upon discharge from Department of Radiology. IMPRESSION: Successful paracentesis under ultrasound guidance.
[2022-04-10 04:20] LABS: Appearance,BF Hazy
== END 2022-04-09 15:10 | disposition home or self-care (01) ==
LOC: RADPROMAIN 12:25
PROVIDERS: ATTEND Internal Medicine
DX: K74.3 Primary biliary cirrhosis (principal)
CPT/HCPCS: 80053; 89050; 82248; 85049; 85610; 87070; 87205; 87075; 49083; P9047